=== PATIENT | female | born 1940 | race Caucasian/White ===

== ENCOUNTER 2019-09-07 13:19 | Emergency (ER) | payer OTHER ==
[2019-09-07 15:08] LABS: Absolute Lymphocytes (CBC) 1.9 K/uL (0.7-4.9); Basophils % 0.6 % (0-1.3); Hematocrit 42.3 % (36.0-45.0); Lymphocytes % 20.5 % (15.3-44.8); MPV 8.2 fL (7.6-11.3); RBC Red Blood Cell Count 4.46 M/uL (3.86-4.86)
[2019-09-07 15:09] LABS: Urine Blood NEGATIVE (NEG); Urine Glucose NEGATIVE (NEG); Urine Protein NEGATIVE (NEG)
[2019-09-07 15:17] LABS: Urine Bacteria <20 /HPF (<20); Urine Culture Reflex Order NOT NEEDED; Urine RBC NONE SEEN /HPF (NONE SEEN)
[2019-09-07 15:19] LABS: ALT/SGPT 23 U/L (12-78); AST/SGOT 16 U/L (15-37); Albumin 4.2 g/dL (3.4-5.0); Alkaline Phosphatase 99 U/L (45-117); BUN Blood Urea Nitrogen 7 mg/dL (7-18); Bicarbonate 32 mmol/L (21-32); Bilirubin Direct < 0.1 mg/dL (0-0.2); Bilirubin Total 0.2 mg/dL (0.2-1.0); Glucose Level 89 mg/dL (74-106); Lipase 182 U/L (73-393); Potassium 4.6 mmol/L (3.5-5.1); Protein, Total 7.9 g/dL (6.4-8.2); Sodium Level 136 mmol/L (136-145)
--- NOTE | 2019-09-07 17:12 | RAD REPORT ---
EXAM DESCRIPTION: CT - Abdomen Pelvis W Contrast - 09/07/2019 4:37 pm CLINICAL HISTORY: Abd pain;Constipation, history of neurogenic bladder with self catheterization COMPARISON: CT imaging January 2017 TECHNIQUE: Biphasic, helical CT imaging of the abdomen and pelvis was performed following 100 ml non -ionic IV contrast. No oral contrast given. All CT scans are performed using dose optimization technique as appropriate and may include automated exposure control or mA/KV adjustment according to patient size. FINDINGS: No acute lung base finding seen. No pericardial thickening or effusion. The liver, spleen, and pancreas show no suspicious findings. Gallbladder and biliary tree are also wi thout suspicious finding. Symmetric renal function is seen with no hydronephrosis or suspicious renal mass. No pyelonephritis o r acute parenchymal process. Urinary bladder is contracted. Uterus is absent. Ovaries are absent or a trophic. No ovarian or primary CARDER BLANKETS process identifiable. Phleboliths are present. No adrenal abnormal ities. Appendix is not clearly defined. No appendicitis finding seen. No active GI process suspected. No free air, free fluid or inflammatory stranding. No hernia, mass or bulky lymphadenopathy. Patie nt has prominent bilateral groin veins and prominent veins across the lower pelvic subcutaneous fatty tissues. No iliac or IVC thrombus changes identified. No suspicious bony findings. Bony degenerative changes are present. 50% L1 compression fracture has n ot change from 2017. IMPRESSION: Contrast enhanced CT abdomen and pelvis showing no significant or suspicious finding. No significant change comparison study. Nonacute findings detailed in the body of the report.
--- NOTE | 2019-09-07 17:44 | EDPHYS ---
Physician Documentation [facility] Name: Joleen Boyer Age: 78 yrs Sex: Female : 1940 Arrival Date: 09/07/2019 Time: 13:22 Bed 25 Private MD: LOAN Physician Yoel Walker HPI: 09/07 15:06 This 78 yrs old Female presents to ER via Ambulatory with complaints of pm1 Urinary Problem, Abdominal Problem. 15:06 The patient presents with abdominal distention that is diffuse. constipation. pm1 15:06 Onset: The symptoms/episode began/occurred neurogenic bladder for about 2 years and on pm1 and off constipation and bloating. Associated signs and symptoms: Pertinent positives: constipation, Pertinent negatives: nausea, vomiting, and diarrhea, chest pain, shortness of breath. The symptoms are described as vague. Modifying factors: The symptoms are alleviated by nothing, the symptoms are aggravated by nothing. The patient has experienced similar episodes in the past, chronically. The patient has not recently seen a physician, the patient's primary care provider is Dr. Bragg. Historical: - Allergies: 14:20 Cephalexin Monohydrate; sr5 14:20 Keflex; sr5 14:20 Nitrofurantoin; sr5 14:20 Nitrofurantoin Macrocrystal; sr5 14:20 PENICILLINS; sr5 14:20 Sulfa (Sulfonamide Antibiotics); sr5 14:20 Tetracycline; sr5 - Home Meds: 15:05 amitriptyline 25 mg Oral tab 1 tab once daily [Active]; aspirin 81 mg Oral chew 1 tab mg2 once daily [Active]; diazepam 5 mg Oral tab 1 tab 2 times per day [Active]; Dilantin 100 mg Oral 3 capsules 1 time per day [Active]; Dilantin 30 mg Oral cap [Active]; Ellura 200 mg Oral cap [Active]; Mapap (acetaminophen) 325 mg Oral tab 1 tab as needed [Active]; Miralax 17 gram/dose Oral powd once daily [Active]; PreserVision AREDS 14,320-226-200 [id number] Oral cap [Active]; Probiotic 250 billion mg Oral cap [Active]; ranitidine HCl 150 mg Oral cap 1 cap once daily [Active]; Stool Softener 240 mg Oral cap 1 cap once daily [Active]; Vitamin C 1,000 mg Oral tab [Active]; - PMHx: 14:20 COPD; Depression; Hypertension; sr5 - Immunization history:: Flu vaccine status is unknown. - Social history:: Smoking status: unknown. - Ebola Screening: : No symptoms or risks identified at this time. ROS: 15:06 Constitutional: Negative for fever, chills, and weight loss, Eyes: Negative for injury, pm1 pain, redness, and discharge, ENT: Negative for injury, pain, and discharge, Neck: Negative for injury, pain, and swelling, Cardiovascular: Negative for chest pain, palpitations, and edema, Respiratory: Negative for shortness of breath, cough, wheezing, and pleuritic chest pain. 15:06 Back: Negative for injury and pain, : Negative for injury, bleeding, discharge, and swelling, MS/Extremity: Negative for injury and deformity, Skin: Negative for injury, rash, and discoloration, Neuro: Negative for headache, weakness, numbness, tingling, and seizure. 15:06 Abdomen/GI: Positive for abdominal pain, constipation, Negative for nausea and vomiting, diarrhea. Exam: 15:06 Constitutional: This is a well developed, well nourished patient who is awake, alert, pm1 and in no acute distress. Head/Face: Normocephalic, atraumatic. Eyes: Pupils equal round and reactive to light, extra-ocular motions intact. Lids and lashes normal. Conjunctiva and sclera are non-icteric and not injected. Cornea within normal limits. Periorbital areas with no swelling, redness, or edema. ENT: Nares patent. No nasal discharge, no septal abnormalities noted. Tympanic membranes are normal and external auditory canals are clear. Oropharynx with no redness, swelling, or masses, exudates, or evidence of obstruction, uvula midline. Mucous membranes moist. Neck: Trachea midline, no thyromegaly or masses palpated, and no cervical lymphadenopathy. Supple, full range of motion without nuchal rigidity, or vertebral point tenderness. No Meningismus. Chest/axilla: Normal chest wall appearance and motion. Nontender with no deformity. No lesions are appreciated. Cardiovascular: Regular rate and rhythm with a normal S1 and S2. No gallops, murmurs, or rubs. Normal PMI, no JVD. No pulse deficits. Respiratory: Lungs have equal breath sounds bilaterally, clear to auscultation and percussion. No rales, rhonchi or wheezes noted. No increased work of breathing, no retractions or nasal flaring. Abdomen/GI: Soft, non-tender, with normal bowel sounds. No distension or tympany. No guarding or rebound. No evidence of tenderness throughout. Back: No spinal tenderness. No costovertebral tenderness. Full range of motion. Skin: Warm, dry with normal turgor. Normal color with no rashes, no lesions, and no evidence of cellulitis. MS/ Extremity: Pulses equal, no cyanosis. Neurovascular intact. Full, normal range of motion. 15:06 Neuro: Orientation: is normal, Motor: is normal, moves all fours. Vital Signs: 14:20 BP 119 / 67; Pulse 79; Resp 18; Temp 98.6; Pulse Ox 91% on R/A; Weight 66.68 kg (M); sr5 16:00 BP 125 / 78; Pulse 80; Resp 18; Temp 98; Pulse Ox 100% on R/A; mg2 17:30 BP 120 / 78; Pulse 81; Resp 18; Pulse Ox 100% on R/A; mg2 14:20 PMH=COPD sr5 MDM: 14:32 Patient medically screened. minerva 17:42 Data reviewed: vital signs. Counseling: I had a detailed discussion with the patient pm1 and/or guardian regarding: the historical points, exam findings, and any diagnostic results supporting the discharge/admit diagnosis, lab results, radiology results, the need for outpatient follow up, to return to the emergency department if symptoms worsen or persist or if there are any questions or concerns that arise at home. 09/07 14:40 Order name: Basic Metabolic Panel; Complete Time: 15:31 mg2 09/07 14:40 Order name: CBC with Diff; Complete Time: 15:17 mg2 09/07 14:40 Order name: Creatinine for Radiology; Complete Time: 15:18 mg2 09/07 14:40 Order name: Hepatic Function; Complete Time: 15:31 mg2 09/07 14:40 Order name: Lipase; Complete Time: 15: mg2 09/07 14:50 Order name: Urine Microscopic Only; Complete Time: 15:17 mg2 09/07 14:40 Order name: IV Saline Lock; Complete Time: 14:58 mg2 09/07 14:40 Order name: Labs collected and sent; Complete Time: 14:58 mg2 09/07 14:40 Order name: Urine Dipstick-Ancillary (obtain specimen); Complete Time: 14:50 mg2 09/07 14:51 Order name: Urine Dipstick--Ancillary (enter results); Complete Time: 15:17 eb 09/07 15:17 Order name: CT Abd/Pelvis - IV Contrast Only; Complete Time: 17:16 pm1 Administered Medications: No medications were administered Disposition: 19:48 Co-signature as Attending Physician, Yoel Walker MD I agree with the assessment and [facility] plan of care. Disposition: 09/07/19 17:43 Discharged to Home. Impression: Unspecified abdominal pain. - Condition is Stable. - Discharge Instructions: Abdominal Pain, Adult, High-Fiber Diet, Fiber Content in Foods. - Medication Reconciliation Form, Thank You Letter, Antibiotic Education, Prescription Opioid Use form. - Follow up: Emergency Department; When: As needed; Reason: Worsening of condition. Follow up: Private Physician; When: 2 - 3 days; Reason: Recheck today's complaints, Continuance of care, Re-evaluation by your physician. - Problem is new. - Symptoms have improved. Signatures: Dispatcher [employer] EDSD Yoel Walker MD MD cha Marinas, Patrick, TIE MAKER TIE MAKER pm1 Anthony Morales RN RN sr5 Oneil Canchola RN RN mg2 Corrections: (The following items were deleted from the chart) 18:05 17:43 09/07/2019 17:43 Discharged to Home. Impression: Unspecified abdominal pain. mg2 Condition is Stable. Forms are Medication Reconciliation Form, Thank You Letter, Antibiotic Education, Prescription Opioid Use. Follow up: Emergency Department; When: As needed; Reason: Worsening of condition. Follow up: Private Physician; When: 2 - 3 days; Reason: Recheck today's complaints, Continuance of care, Re-evaluation by your physician. Problem is new. Symptoms have improved. pm1
--- NOTE | 2019-09-07 17:44 | ER ---
Nurse's Notes [facility] Name: Joleen Boyer Age: 78 yrs Sex: Female : 1940 Arrival Date: 09/07/2019 Time: 13:22 Bed 25 Private MD: Diagnosis: Unspecified abdominal pain Presentation: 09/07 14:18 Presenting complaint: Patient states: abd distention, very vague symptoms report. sr5 History of neurogenic bladder, requiring self catherization, denies foul odor to urine. Reports drinking prune juice with BM today. 14:18 Acuity: YORDY 3 sr5 15:02 Transition of care: patient was not received from another setting of care. Onset of mg2 symptoms was August 2019. Risk Assessment: Do you want to hurt yourself or someone else? Patient reports no desire to harm self or others. Initial Sepsis Screen: Does the patient meet any 2 criteria? No. Patient's initial sepsis screen is negative. Does the patient have a suspected source of infection? No. Patient's initial sepsis screen is negative. Care prior to arrival: None. 15:02 Method Of Arrival: Ambulatory mg2 Triage Assessment: 14:20 General: Appears in no apparent distress. Behavior is calm, cooperative. Pain: sr5 Complains of pain in abdomen. Neuro: No deficits noted. Cardiovascular: No deficits noted. GI: Reports lower abdominal pain, upper abdominal pain, constipation. Historical: - Allergies: 14:20 Cephalexin Monohydrate; sr5 14:20 Keflex; sr5 14:20 Nitrofurantoin; sr5 14:20 Nitrofurantoin Macrocrystal; sr5 14:20 PENICILLINS; sr5 14:20 Sulfa (Sulfonamide Antibiotics); sr5 14:20 Tetracycline; sr5 - Home Meds: 15:05 amitriptyline 25 mg Oral tab 1 tab once daily [Active]; aspirin 81 mg Oral chew 1 tab mg2 once daily [Active]; diazepam 5 mg Oral tab 1 tab 2 times per day [Active]; Dilantin 100 mg Oral 3 capsules 1 time per day [Active]; Dilantin 30 mg Oral cap [Active]; Ellura 200 mg Oral cap [Active]; Mapap (acetaminophen) 325 mg Oral tab 1 tab as needed [Active]; Miralax 17 gram/dose Oral powd once daily [Active]; PreserVision AREDS 14,320-226-200 [id number] Oral cap [Active]; Probiotic 250 billion mg Oral cap [Active]; ranitidine HCl 150 mg Oral cap 1 cap once daily [Active]; Stool Softener 240 mg Oral cap 1 cap once daily [Active]; Vitamin C 1,000 mg Oral tab [Active]; - PMHx: 14:20 COPD; Depression; Hypertension; sr5 - Immunization history:: Flu vaccine status is unknown. - Social history:: Smoking status: unknown. - Ebola Screening: : No symptoms or risks identified at this time. Screenin:01 Abuse screen: Denies threats or abuse. Denies injuries from another. Nutritional mg2 screening: No deficits noted. Tuberculosis screening: No symptoms or risk factors identified. Fall Risk IV access (20 points). Assessment: 14:59 General: Appears in no apparent distress. comfortable, Behavior is calm, cooperative. mg2 Pain: Complains of pain in abdomen Pain does not radiate. Pain currently is 3 out of 10 on a pain scale. Quality of pain is described as aching, Pain began gradually. Neuro: Level of Consciousness is awake, alert, obeys commands, Oriented to person, place, time, situation. Cardiovascular: Capillary refill < 3 seconds Patient's skin is warm and dry. Respiratory: Airway is patent Respiratory effort is even, unlabored, Respiratory pattern is regular, symmetrical. GI: Bowel sounds present X 4 quads. Abd is soft. GI: Reports constipation. : Urine is clear. EENT: No signs and/or symptoms were reported regarding the EENT system. Derm: Skin is intact, is healthy with good turgor, Skin is pink, warm \T\ dry. normal. Musculoskeletal: Circulation, motion, and sensation intact. Capillary refill < 3 seconds. 16:41 Reassessment: patient do self-catheterization. patient sent to ct scan via wheelchair. mg2 Vital Signs: 14:20 BP 119 / 67; Pulse 79; Resp 18; Temp 98.6; Pulse Ox 91% on R/A; Weight 66.68 kg (M); sr5 16:00 BP 125 / 78; Pulse 80; Resp 18; Temp 98; Pulse Ox 100% on R/A; mg2 17:30 BP 120 / 78; Pulse 81; Resp 18; Pulse Ox 100% on R/A; mg2 14:20 PMH=COPD sr5 ED Course: 13:22 Patient arrived in ED. as 14:19 Triage completed. sr5 14:28 Oneil Canchola, RN is Primary Nurse. mg2 14:29 Markie Abernathy NP is PHCP. pm1 14:29 Yoel Walker MD is Attending Physician. pm1 14:37 Arm band placed on. mg2 15:01 Patient has correct armband on for positive identification. mg2 15:01 No provider procedures requiring assistance completed. Inserted saline lock: 20 gauge mg2 in left antecubital area, using aseptic technique. Blood collected. 16:35 CT completed. Patient tolerated procedure well. Patient moved to CT via wheelchair. nj Patient moved back from CT. 16:38 CT Abd/Pelvis - IV Contrast Only In Process Unspecified. EDMS 18:05 IV discontinued, intact, bleeding controlled, No redness/swelling at site. Pressure mg2 dressing applied. Administered Medications: No medications were administered Output: 15:21 Urine: 150ml (Straight Cath); Total: 150ml. mg2 Outcome: 17:43 Discharge ordered by . pm1 18:05 Discharged to home ambulatory, with friend. mg2 18:05 Condition: stable 18:05 Discharge instructions given to patient, family, Instructed on discharge instructions, follow up and referral plans. Demonstrated understanding of instructions, follow-up care. 18:05 Patient left the ED. mg2 Signatures: Dispatcher [employer] Sanjana Michaud Patrick, [place] ASSISTANT PRODUCT MANAGER pm1 Anthony Morales RN RN sr5 Robinson Winters Michele, RN RN mg2
[2019-09-07 18:15] VITALS: TEMP 98; O2SAT 100
[2019-09-07 18:16] VITALS: BP 120/78
== END 2019-09-07 18:05 | disposition home or self-care (01) ==
LOC: ER 13:19
DX: R10.9 Unspecified abdominal pain (principal); I10 Essential (primary) hypertension; F32.9 Major depressive disorder, single episode, unspecified; J44.9 Chronic obstructive pulmonary disease, unspecified; Z79.82 Long term (current) use of aspirin; Z88.0 Allergy status to penicillin; Z88.1 Allergy status to other antibiotic agents; Z88.2 Allergy status to sulfonamides; Z88.3 Allergy status to other anti-infective agents; Z88.8 Allergy status to other drugs, medicaments and biological substances
CPT/HCPCS: 85025; 80048; 36415; 80076; 83690; 74177; 99284; Q9967; 81003; 81015

== ENCOUNTER 2020-05-10 18:26 | Emergency (ER) | payer OTHER ==
[2020-05-10 19:07] LABS: Urine Blood 1+ (NEG); Urine Glucose NEGATIVE (NEG); Urine Specific Gravity 1.015 (1.005-1.030)
[2020-05-10 19:08] LABS: Urine Protein 1+ (NEG); Urine pH 6.5 (5.0-7.0)
[2020-05-10 19:33] LABS: Urine Amorphous Sediment 1+ /HPF (NONE SEEN); Urine Bacteria <20 /HPF (<20); Urine Culture Reflex Order NOT NEEDED; Urine RBC <5 /HPF (NONE SEEN)
--- NOTE | 2020-05-10 19:40 | ER ---
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 Just wanted to be checked before she cath's herself again. EMS states: [facility] client. Coronavirus screen: Client denies travel out of the [place] in the last 14 days. At this time, the client does not indicate any symptoms associated with coronavirus-19. Ebola Screen: Patient denies travel to an Ebola-affected area in the 21 days before illness onset. Initial Sepsis Screen: Does the patient meet any 2 criteria? No. Patient's initial sepsis screen is negative. Risk Assessment: Do you want to hurt yourself or someone else? Patient reports no desire to harm self or others. Onset of symptoms was May 10, 2020. 18:30 Method Of Arrival: EMS: [facility] ll1 18:30 Acuity: YORDY 4 ll1 18:32 Initial Sepsis Screen: Does the patient have a suspected source of infection? No. hb Patient's initial sepsis screen is negative. Historical: - Allergies: 18:33 Cephalexin Monohydrate; ll1 18:33 Keflex; ll1 18:33 Nitrofurantoin; ll1 18:33 Nitrofurantoin Macrocrystal; ll1 18:33 PENICILLINS; ll1 18:33 Sulfa (Sulfonamide Antibiotics); ll1 18:33 Tetracycline; ll1 - PMHx: 18:33 COPD; Depression; Hypertension; stroke; macular degeneration; ll1 - Immunization history:: Flu vaccine is up to date. - Social history:: Smoking status: Patient/guardian denies using tobacco, the patient reports quitting approximately 11 years ago, Patient/guardian denies using alcohol, street drugs. Screenin:46 Abuse screen: Denies threats or abuse. Denies injuries from another. Nutritional hb screening: No deficits noted. Tuberculosis screening: No symptoms or risk factors identified. Fall Risk None identified. Assessment: 18:46 General: Appears in no apparent distress. Behavior is calm, cooperative. Pain: Denies hb pain. Neuro: Level of Consciousness is awake, alert, obeys commands, Oriented to person, place, time, situation. Cardiovascular: Capillary refill < 3 seconds Patient's skin is warm and dry. Respiratory: Airway is patent Respiratory effort is even, unlabored, Respiratory pattern is regular, symmetrical. GI: No signs and/or symptoms were reported involving the gastrointestinal system. : Reports decreased urine amount with self cath this afternoon. EENT: No signs and/or symptoms were reported regarding the EENT system. Derm: Skin is pink, warm \\T\\ dry. Musculoskeletal: No signs and/or symptoms reported regarding the musculoskeletal system. 19:10 Reassessment: Patient appears in no apparent distress at this time. Patient and/or jb4 family updated on plan of care and expected duration. Pain level reassessed. Patient is alert, oriented x 3, equal unlabored respirations, skin warm/dry/pink. 19:52 Reassessment: CALLED [facility]. SPOKE WITH SAVANNAH THORPE. SHE WILL CONTACTING PATIENTS mt2 RIDE. Vital Signs: 18:30 BP 149 / 83; Pulse 84; Resp 18; Temp 98.6; Pulse Ox 93% ; Pain 0/10; ll1 19:30 BP 151 / 83; Pulse 79; Resp 16; Pulse Ox 95% on R/A; jb4 ED Course: 18:29 Patient arrived in ED. ll1 18:32 Triage completed. ll1 18:34 Arm band placed on Patient placed in an exam room, on a stretcher. ll1 18:35 Linnea Chahal FNP-C is PHCP. kb 18:35 Zena Garg MD is Attending Physician. kb 18:46 Patient has correct armband on for positive identification. Bed in low position. Call hb light in reach. Side rails up X 1. 18:53 Speci-cath kit inserted, using sterile technique, specimen obtained. 8F returned 100 hb ml. Patient tolerated well. 19:42 Jon Brennan, JON is Primary Nurse. jb4 19:45 Speci-cath kit inserted, using sterile technique, 12 Fr., returned 700. Patient mt2 tolerated. 20:17 No provider procedures requiring assistance completed. Patient did not have IV access mt2 during this emergency room visit. Administered Medications: No medications were administered Intake: 18:53 PO: 0ml; Total: 0ml. hb Output: 18:53 Urine: 100ml (Straight Cath); Total: 100ml. hb Outcome: 19:39 Discharge ordered by . bushra 20:17 Discharged to home ambulatory. mt2 20:17 Condition: good 20:17 Discharge instructions given to patient, Instructed on discharge instructions, follow up and referral plans. Demonstrated understanding of instructions, follow-up care. 20:18 Patient left the ED. 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 Just wanted to be checked before she cath's herself again. ll1
--- NOTE | 2020-05-10 19:40 | EDPHYS ---
Physician Documentation [facility] Name: Joleen Boyer Age: 79 yrs Sex: Female : 1940 Arrival Date: 05/10/2020 Time: 18:29 Bed 8 Private MD: ED Physician Zena Garg HPI: 05/10 20:18 This 79 yrs old Female presents to ER via EMS with complaints of Urinary kb Problem. 20:18 Pt reports she had some trouble doing the in and out catheter prior to arrival. States kb she has been self catheterizing for years and sometimes she has trouble doing it. She asked staff at [facility] to help her and they said she had to come to the ER for help. Pt states "I just need to drain my bladder.". Onset: The symptoms/episode began/occurred today. Severity of symptoms: At their worst the symptoms were mild in the emergency department the symptoms are unchanged. The patient has not experienced similar symptoms in the past. The patient has not recently seen a physician. Historical: - Allergies: 18:33 Cephalexin Monohydrate; ll1 18:33 Keflex; ll1 18:33 Nitrofurantoin; ll1 18:33 Nitrofurantoin Macrocrystal; ll1 18:33 PENICILLINS; ll1 18:33 Sulfa (Sulfonamide Antibiotics); ll1 18:33 Tetracycline; ll1 - PMHx: 18:33 COPD; Depression; Hypertension; stroke; macular degeneration; ll1 - Immunization history:: Flu vaccine is up to date. - Social history:: Smoking status: Patient/guardian denies using tobacco, the patient reports quitting approximately 11 years ago, Patient/guardian denies using alcohol, street drugs. ROS: 20:17 Constitutional: Negative for fever, chills, and weight loss, Cardiovascular: Negative kb for chest pain, palpitations, and edema, Respiratory: Negative for shortness of breath, cough, wheezing, and pleuritic chest pain, Abdomen/GI: Negative for abdominal pain, nausea, vomiting, diarrhea, and constipation, Back: Negative for injury and pain, : Negative for injury, bleeding, discharge, and swelling, MS/Extremity: Negative for injury and deformity, Skin: Negative for injury, rash, and discoloration, Neuro: Negative for headache, weakness, numbness, tingling, and seizure. Exam: 20:17 Constitutional: This is a well developed, well nourished patient who is awake, alert, kb and in no acute distress. Head/Face: Normocephalic, atraumatic. Chest/axilla: Normal chest wall appearance and motion. Nontender with no deformity. No lesions are appreciated. Cardiovascular: Regular rate and rhythm with a normal S1 and S2. No gallops, murmurs, or rubs. Normal PMI, no JVD. No pulse deficits. Respiratory: Lungs have equal breath sounds bilaterally, clear to auscultation and percussion. No rales, rhonchi or wheezes noted. No increased work of breathing, no retractions or nasal flaring. Abdomen/GI: Soft, non-tender, with normal bowel sounds. No distension or tympany. No guarding or rebound. No evidence of tenderness throughout. Back: No spinal tenderness. No costovertebral tenderness. Full range of motion. Female : Normal external genitalia. Skin: Warm, dry with normal turgor. Normal color with no rashes, no lesions, and no evidence of cellulitis. MS/ Extremity: Pulses equal, no cyanosis. Neurovascular intact. Full, normal range of motion. Neuro: Awake and alert, GCS 15, oriented to person, place, time, and situation. Cranial nerves II-XII grossly intact. Motor strength 5/5 in all extremities. Sensory grossly intact. Cerebellar exam normal. Normal gait. Vital Signs: 18:30 BP 149 / 83; Pulse 84; Resp 18; Temp 98.6; Pulse Ox 93% ; Pain 0/10; ll1 19:30 BP 151 / 83; Pulse 79; Resp 16; Pulse Ox 95% on R/A; jb4 MDM: 18:35 Patient medically screened. kb 20:17 Data reviewed: vital signs, nurses notes. Data interpreted: Pulse oximetry: on room air kb is 95 %. Interpretation: normal. Counseling: I had a detailed discussion with the patient and/or guardian regarding: the historical points, exam findings, and any diagnostic results supporting the discharge/admit diagnosis, lab results, the need for outpatient follow up, a family practitioner, to return to the emergency department if symptoms worsen or persist or if there are any questions or concerns that arise at home. 05/10 18:53 Order name: Urine Microscopic Only kb 08/30 18:54 Order name: Urine Microscopic Only; Complete Time: 19:38 EDMS 05/10 18:36 Order name: Straight Cath - Urine; Complete Time: 18:53 kb 05/10 18:36 Order name: Urine Dipstick-Ancillary (obtain specimen); Complete Time: 18:53 kb 05/10 18:56 Order name: Urine Dipstick--Ancillary (enter results); Complete Time: 19:09 eb Administered Medications: No medications were administered Disposition: 05/10/20 19:39 Discharged to Home. Impression: Encounter for straight catheterization. - Condition is Stable. - Discharge Instructions: Clean Intermittent Catheterization, Female. - Medication Reconciliation Form, Thank You Letter, Antibiotic Education, Prescription Opioid Use form. - Follow up: Emergency Department; When: As needed; Reason: Worsening of condition. Follow up: Private Physician; When: 2 - 3 days; Reason: Recheck today's complaints, Continuance of care, Re-evaluation by your physician. Signatures: Dispatcher [employer] EDLinnea Gonzales, CAN CLOSING MACHINE OPERATOR-C CAN CLOSING MACHINE OPERATOR-Silas Salas, RN RN ll1 Soumya Robles RN RN mt2 Corrections: (The following items were deleted from the chart) 20:18 19:39 05/10/2020 19:39 Discharged to Home. Impression: Encounter for straight mt2 catheterization. Condition is Stable. Forms are Medication Reconciliation Form, Thank You Letter, Antibiotic Education, Prescription Opioid Use. Follow up: Emergency Department; When: As needed; Reason: Worsening of condition. Follow up: Private Physician; When: 2 - 3 days; Reason: Recheck today's complaints, Continuance of care, Re-evaluation by your physician. kb
[2020-05-13 21:17] VITALS: TEMP 98.6
[2020-05-13 21:18] VITALS: BP 151/83; O2SAT 95
== END 2020-05-10 20:18 | disposition home or self-care (01) ==
LOC: ER 18:26
DX: Z46.6 Encounter for fitting and adjustment of urinary device (principal)
CPT/HCPCS: 81003; 81015; 99283

== ENCOUNTER 2020-06-17 08:45 | Emergency (ER) | payer OTHER ==
--- NOTE | 2020-06-17 09:40 | RAD REPORT ---
EXAM DESCRIPTION: [place] Single View06/17/2020 9:32 am CLINICAL HISTORY: Hypertension/weakness COMPARISON: 2017 FINDINGS: Lungs are moderately hyperaerated The lungs appear clear of acute infiltrate. The heart is normal size IMPRESSION: COPD without visualization of an acute abnormality
--- NOTE | 2020-06-17 10:22 | ER ---
Nurse's Notes [facility] Name: Joleen Boyer Age: 79 yrs Sex: Female : 1940 Arrival Date: 06/17/2020 Time: 08:47 Bed 18 Private MD: Diagnosis: Malaise and fatigue;Person with feared health complaint in whom no diagnosis is made Presentation: 06/17 08:49 Chief complaint: EMS states: pt is resident at [facility] assisted living, pt has iw been c/o dizziness, not feeling well, behavior has been abnormal, more obsessive and paranoid. Coronavirus screen: At this time, the client does not indicate any symptoms associated with coronavirus-19. Ebola Screen: Patient negative for fever greater than or equal to 101.5 degrees Fahrenheit, and additional compatible Ebola Virus Disease symptoms Patient denies exposure to infectious person. Patient denies travel to an Ebola-affected area in the 21 days before illness onset. No symptoms or risks identified at this time. Initial Sepsis Screen: Does the patient meet any 2 criteria? No. Patient's initial sepsis screen is negative. Does the patient have a suspected source of infection? No. Patient's initial sepsis screen is negative. Risk Assessment: Do you want to hurt yourself or someone else? Patient reports no desire to harm self or others. 08:49 Method Of Arrival: EMS: [facility] iw 08:49 Acuity: YORDY 3 iw Historical: - Allergies: 08:56 Cephalexin Monohydrate; iw 08:56 Keflex; iw 08:56 Nitrofurantoin; iw 08:56 PENICILLINS; iw 08:56 Sulfa (Sulfonamide Antibiotics); iw 08:56 Tetracycline; iw - Home Meds: 08:56 diazepam 5 mg Oral tab 1 tab 3 times per day [Active]; Dilantin 30 mg Oral cap nightly iw [Active]; terbinafine HCl 250 mg oral tab 1 tab once daily [Active]; - PMHx: 08:56 COPD; Depression; Hypertension; macular degeneration; stroke; iw - Immunization history:: Adult Immunizations unknown. - Family history:: not pertinent. - Social history:: Smoking status: Patient denies any tobacco usage or history of. - Hospitalizations: : No recent hospitalization is reported. Screenin:00 Abuse screen: Denies threats or abuse. Denies injuries from another. Nutritional jl7 screening: No deficits noted. Tuberculosis screening: No symptoms or risk factors identified. Assessment: 09:00 General: Appears in no apparent distress. uncomfortable, Behavior is cooperative, jl7 anxious. Pain: Denies pain. Neuro: Level of Consciousness is awake, alert, obeys commands, Oriented to person, place, time, situation. Cardiovascular: Patient's skin is warm and dry. Respiratory: Airway is patent Respiratory effort is even, unlabored, Respiratory pattern is regular, symmetrical. GI: Reports diarrhea. : Reports self caths. Derm: Skin is pink, warm \\T\\ dry. 09:22 Reassessment: Pt refusing EKG and blood work at this time. ERD notified. jl7 10:06 Reassessment: Pt states "I'm ready to go." ERD notified. jl7 10:07 Reassessment: ERD at bedside. jl7 Vital Signs: 08:49 BP 138 / 73; Pulse 73; Resp 16; Temp 97.5; Pulse Ox 96% on R/A; iw 10:06 Pulse 72; Resp 15; Pulse Ox 97% ; Pain 0/10; jl7 ED Course: 08:47 Patient arrived in ED. iw 08:48 Janusz Lara MD is Attending Physician. rn 08:51 Triage completed. iw 08:55 Arm band placed on. iw 09:00 Patient has correct armband on for positive identification. Placed in gown. Bed in low jl7 position. Call light in reach. Side rails up X2. Pulse ox on. NIBP on. Warm blanket given. 09:07 Anh Shell RN is Primary Nurse. jl7 09:32 XRAY Chest (1 view) In Process Unspecified. EDMS 09:42 Urine collected: straight cath specimen, clear. Straight cath inserted, using sterile jl7 technique, 16 Fr. Specimen obtained. Returned clear yellow urine. Patient tolerated well. Straight cath completed by Nurse Licensed Practical JON Holcomb with students. 10:06 No provider procedures requiring assistance completed. Patient did not have IV access jl7 during this emergency room visit. Administered Medications: No medications were administered Outcome: 10:21 Discharge ordered by . rn 10:36 Discharged to home ambulatory. jl7 10:36 Condition: stable 10:36 Discharge instructions given to patient, Instructed on discharge instructions, follow up and referral plans. Demonstrated understanding of instructions, follow-up care. 10:37 Patient left the ED. jl7 Signatures: Dispatcher [employer] Maxine Osborn, Janusz Young RN, MD MD rn Leal, Jahala, RN RN jl7
--- NOTE | 2020-06-17 10:22 | EDPHYS ---
Physician Documentation [facility] Name: Joleen Boyer Age: 79 yrs Sex: Female : 1940 Arrival Date: 06/17/2020 Time: 08:47 Bed 18 Private MD: ED Physician Janusz Lara HPI: 06/17 08:59 This 79 yrs old Female presents to ER via EMS with complaints of "feels bad". rn 08:59 Reports feeling bad for last 2-3 weeks, feels like life is ending, + fatigue and rn decreased energy. no fever/cough/sob/abd pain, denies blood in stool. Did have loose stool today. No head injury. . Onset: The symptoms/episode began/occurred 3 week(s) ago. Severity of symptoms: At their worst the symptoms were mild in the emergency department the symptoms are unchanged. The patient has not experienced similar symptoms in the past. The patient has not recently seen a physician. Historical: - Allergies: 08:56 Cephalexin Monohydrate; iw 08:56 Keflex; iw 08:56 Nitrofurantoin; iw 08:56 PENICILLINS; iw 08:56 Sulfa (Sulfonamide Antibiotics); iw 08:56 Tetracycline; iw - Home Meds: 08:56 diazepam 5 mg Oral tab 1 tab 3 times per day [Active]; Dilantin 30 mg Oral cap nightly iw [Active]; terbinafine HCl 250 mg oral tab 1 tab once daily [Active]; - PMHx: 08:56 COPD; Depression; Hypertension; macular degeneration; stroke; iw - Immunization history:: Adult Immunizations unknown. - Family history:: not pertinent. - Social history:: Smoking status: Patient denies any tobacco usage or history of. - Hospitalizations: : No recent hospitalization is reported. ROS: 08:59 Constitutional: Negative for fever, chills, and weight loss, Eyes: Negative for injury, rn pain, redness, and discharge, Neck: Negative for injury, pain, and swelling, Cardiovascular: Negative for chest pain, palpitations, and edema, Respiratory: Negative for shortness of breath, cough, wheezing, and pleuritic chest pain, Abdomen/GI: Negative for abdominal pain, nausea, vomiting, and constipation, Back: Negative for injury and pain, MS/Extremity: Negative for injury and deformity, Skin: Negative for injury, rash, and discoloration, Neuro: Negative for headache, numbness, tingling, and seizure. Exam: 08:59 Constitutional: This is a well developed, well nourished patient who is awake, alert, rn and in no acute distress. Head/Face: Normocephalic, atraumatic. ENT: dry MM Cardiovascular: Regular rate and rhythm. No pulse deficits. Respiratory: No increased work of breathing, no retractions or nasal flaring. Abdomen/GI: soft, non-tender Skin: Warm, dry MS/ Extremity: Pulses equal, no cyanosis. Neurovascular intact. Full, normal range of motion. Equal circumference. Neuro: Awake and alert, GCS 15, oriented to person, place, time, and situation. Cranial nerves II-XII grossly intact. Motor strength 5/5 in all extremities. Sensory grossly intact. Cerebellar exam normal. Vital Signs: 08:49 BP 138 / 73; Pulse 73; Resp 16; Temp 97.5; Pulse Ox 96% on R/A; iw 10:06 Pulse 72; Resp 15; Pulse Ox 97% ; Pain 0/10; jl7 MDM: 08:48 Patient medically screened. rn 10:13 Differential Diagnosis Pt refuses bloodwork and ecg. She feels like just panicked. rn Reports had bloodwork done and everything looked ok recently. CXR neg, UA neg. Wants to go home. Recommend oral hydration and return precautions. . 10:15 Data reviewed: vital signs, nurses notes, radiologic studies, plain films, and as a rn result, I will discharge patient. Counseling: I had a detailed discussion with the patient and/or guardian regarding: the historical points, exam findings, and any diagnostic results supporting the discharge/admit diagnosis, radiology results, the need for outpatient follow up, to return to the emergency department if symptoms worsen or persist or if there are any questions or concerns that arise at home. Special discussion: I discussed with the patient/guardian in detail that at this point there is no indication for admission to the hospital. It is understood, however, that if the symptoms persist or worsen the patient needs to return immediately for re-evaluation. 06/17 08:50 Order name: Urine Microscopic Only rn 06/17 08:50 Order name: XRAY Chest (1 view); Complete Time: 10:00 rn 06/17 10:02 Order name: Urine Dipstick--Ancillary (enter results) bd 06/17 08:50 Order name: Urine Dipstick-Ancillary (obtain specimen); Complete Time: 09:42 rn 06/17 08:50 Order name: EKG; Complete Time: 08:51 rn Administered Medications: No medications were administered Disposition: 06/17/20 10:21 Discharged to Home. Impression: Malaise and fatigue, Person with feared health complaint in whom no diagnosis is made. - Condition is Stable. - Medication Reconciliation Form, Thank You Letter, Antibiotic Education, Prescription Opioid Use form. - Follow up: Private Physician; When: As needed; Reason: Recheck today's complaints, Re-evaluation by your physician. - Problem is new. - Symptoms have improved. Signatures: Dispatcher [employer] EDMS Maxine Vergara, RN Janusz Young MD MD rn Leal, Jahala, RN RN jl7 Corrections: (The following items were deleted from the chart) 09: 08:59 Constitutional: Negative for fever, chills, and weight loss, Eyes: Negative for rn injury, pain, redness, and discharge, Neck: Negative for injury, pain, and swelling, Cardiovascular: Negative for chest pain, palpitations, and edema, Respiratory: Negative for shortness of breath, cough, wheezing, and pleuritic chest pain, Abdomen/GI: Negative for abdominal pain, nausea, vomiting, diarrhea, and constipation, Back: Negative for injury and pain, MS/Extremity: Negative for injury and deformity, Skin: Negative for injury, rash, and discoloration, Neuro: Negative for headache, numbness, tingling, and seizure, rn 09:42 08:50 IV Saline Lock ordered. rn pia7 09:42 08:50 EKG - Nurse/Tech ordered. kristel [email or web address] 10:21 10:21 06/17/2020 10:21 Discharged to Home. Impression: Malaise and fatigue. Condition rn is Stable. Forms are Medication Reconciliation Form, Thank You Letter, Antibiotic Education, Prescription Opioid Use. Follow up: Private Physician; When: As needed; Reason: Recheck today's complaints, Re-evaluation by your physician. Problem is new. Symptoms have improved. rn 10:37 10:21 06/17/2020 10:21 Discharged to Home. Impression: Malaise and fatigue; Person with jl7 feared health complaint in whom no diagnosis is made. Condition is Stable. Forms are Medication Reconciliation Form, Thank You Letter, Antibiotic Education, Prescription Opioid Use. Follow up: Private Physician; When: As needed; Reason: Recheck today's complaints, Re-evaluation by your physician. Problem is new. Symptoms have improved. rn
[2020-06-17 10:40] LABS: Urine Blood TRACE (NEG); Urine Glucose NEGATIVE (NEG); Urine Protein 1+ (NEG); Urine Specific Gravity 1.025 (1.005-1.030); Urine pH 6.5 (5.0-7.0)
[2020-06-17 10:49] VITALS: BP 138/73; TEMP 97.5
[2020-06-17 10:51] VITALS: O2SAT 97
[2020-06-17 11:18] LABS: Urine Bacteria <20 /HPF (<20); Urine Culture Reflex Order NOT NEEDED; Urine RBC <5 /HPF (NONE SEEN)
== END 2020-06-17 10:37 | disposition home or self-care (01) ==
LOC: ER 08:45
DX: Z71.1 Person with feared health complaint in whom no diagnosis is made (principal); R53.81 Other malaise; I10 Essential (primary) hypertension; F32.9 Major depressive disorder, single episode, unspecified; J44.9 Chronic obstructive pulmonary disease, unspecified; Z86.73 Personal history of transient ischemic attack (TIA), and cerebral infarction without residual deficits; Z88.0 Allergy status to penicillin; Z88.1 Allergy status to other antibiotic agents; Z88.2 Allergy status to sulfonamides; Z88.8 Allergy status to other drugs, medicaments and biological substances
CPT/HCPCS: 51702; 71045; 81003; 81015; 93005; 99284

== ENCOUNTER 2020-06-28 13:12 | Emergency (ER) | payer OTHER ==
--- NOTE | 2020-06-28 14:13 | RAD REPORT ---
EXAM DESCRIPTION: RAD - Hand Left 3 View - 06/28/2020 2:03 pm CLINICAL HISTORY: fall, pain Trauma, pain COMPARISON: No comparisons FINDINGS: Mildly displaced fractures seen at the base of the second, third and fourth metacarpals. F ractures also seen involving the base of the proximal phalanx of the thumb.
--- NOTE | 2020-06-28 14:14 | RAD REPORT ---
EXAM DESCRIPTION: RAD - Wrist Left 3 View - 06/28/2020 2:03 pm CLINICAL HISTORY: PAIN Pain COMPARISON: Wrist Left 3 View dated 10/08/2016 FINDINGS: Fractures involving the base of the second, third and probably fourth metacarpals noted. Small fracture seen at the base of the proximal phalanx of the thumb. Old trauma of the distal radiu s is seen. No acute wrist fracture.
--- NOTE | 2020-06-28 14:19 | ER ---
Nurse's Notes [facility] Name: Joleen Boyer Age: 79 yrs Sex: Female : 1940 Arrival Date: 06/28/2020 Time: 13:13 Bed 2 Private MD: Diagnosis: Nondisplaced fracture of base of fourth metacarpal bone, left hand;Nondisplaced fracture of base of second metacarpal bone. left hand;Nondisplaced fracture of base of third metacarpal bone, left hand;Nondisplaced fracture of proximal phalanx of left thumb Presentation: 06/28 13:15 Chief complaint: EMS states: "She fell while walking and landed on her left hand. she jd3 is reporting left wrist and hand pain as well as an abrasion on her left leg.". Coronavirus screen: At this time, the client does not indicate any symptoms associated with coronavirus-19. Ebola Screen: Patient negative for fever greater than or equal to 101.5 degrees Fahrenheit, and additional compatible Ebola Virus Disease symptoms. Initial Sepsis Screen: Does the patient meet any 2 criteria? No. Patient's initial sepsis screen is negative. Does the patient have a suspected source of infection? No. Patient's initial sepsis screen is negative. Risk Assessment: Do you want to hurt yourself or someone else? Patient reports no desire to harm self or others. Onset of symptoms was June 28, 2020. Transition of care: patient was received from another setting of care (long-term care facility), [facility]. 13:15 Acuity: YORDY 4 jd3 13:15 Method Of Arrival: EMS: [facility] jd3 Historical: - Allergies: 13:14 Cephalexin Monohydrate; iw 13:14 Keflex; iw 13:14 Nitrofurantoin; iw 13:14 PENICILLINS; iw 13:14 Sulfa (Sulfonamide Antibiotics); iw 13:14 Tetracycline; iw - Home Meds: 13:14 diazepam 5 mg Oral tab 1 tab 3 times per day [Active]; Dilantin 30 mg Oral cap nightly iw [Active]; terbinafine HCl 250 mg Oral tab 1 tab once daily [Active]; - PMHx: 13:14 COPD; Depression; Hypertension; macular degeneration; stroke; iw - Immunization history:: Adult Immunizations up to date. - Family history:: not pertinent. - Social history:: Smoking status: . - Hospitalizations: : No recent hospitalization is reported. Screenin:23 Abuse screen: Denies threats or abuse. Denies injuries from another. Nutritional iw screening: No deficits noted. Tuberculosis screening: No symptoms or risk factors identified. Fall Risk Fall in past 12 months (25 points). Assessment: 13:22 General: Appears in no apparent distress. Behavior is calm, cooperative. Pain: iw Complains of pain in left hand. Neuro: Level of Consciousness is awake, alert, obeys commands, Oriented to person, place, time, situation, Moves all extremities. Full function. Cardiovascular: Patient's skin is warm and dry. Respiratory: Respiratory effort is even, unlabored, Respiratory pattern is regular, symmetrical. GI: No signs and/or symptoms were reported involving the gastrointestinal system. Derm: Skin is fragile, is thin, Skin is normal. Musculoskeletal: Range of motion: limited in left wrist, MCP of left thumb and CMC of left thumb. 14:20 Reassessment: Patient appears in no apparent distress at this time. pt requested to be iw straight cathed prior to splint placement. Vital Signs: 13:17 BP 142 / 95; Pulse 71; Resp 18 S; Temp 99.4(TE); Pulse Ox 94% on R/A; Weight 77.11 kg jd3 (R); Height 5 ft. 7 in. (170.18 cm) (R); Pain 8/10; 13:17 Body Mass Index 26.63 (77.11 kg, 170.18 cm) jd3 ED Course: 13:13 Patient arrived in ED. iw 13:17 Janusz Lara MD is Attending Physician. rn 13:17 Triage completed. jd3 13:18 Arm band placed on. jd3 13:22 Maxine Vergara, JON is Primary Nurse. iw 13:40 Patient has correct armband on for positive identification. iw 14:03 XRAY Wrist LEFT 3 view In Process Unspecified. EDMS 14:03 XRAY Hand LEFT 3 View In Process Unspecified. EDMS 14:18 Ayden Fuller MD is Referral Physician. rn 15:13 Orthoglass splint: Thumb spica splint applied on left forearm. Volar splint applied on dh4 left arm. 15:20 No provider procedures requiring assistance completed. Patient did not have IV access iw during this emergency room visit. Administered Medications: No medications were administered Outcome: 14:19 Discharge ordered by . rn 15:27 Discharged to home via wheelchair, with friend. iw 15: Condition: good 15:27 Discharge instructions given to patient, friend, Instructed on discharge instructions, follow up and referral plans. medication usage, Demonstrated understanding of instructions, follow-up care, medications, splint care, Prescriptions given X 1. 15:28 Patient left the ED. iw Signatures: Dispatcher [employer] EDMaxine Brice RN Janusz Young MD MD rn Davies, Jonathon, RN RN jd3 Huhn, [facility]
--- NOTE | 2020-06-28 14:19 | EDPHYS ---
Physician Documentation [facility] Name: Joleen Boyer Age: 79 yrs Sex: Female : 1940 Arrival Date: 06/28/2020 Time: 13:13 Bed 2 Private MD: ED Physician Janusz Lara HPI: 06/28 13:22 This 79 yrs old Female presents to ER via EMS with complaints of Fall Injury, rn Hand Injury. 13:22 Details of fall: The patient fell from an upright position, while walking. Onset: The rn symptoms/episode began/occurred just prior to arrival. Associated injuries: The patient sustained left hand/wrist. Severity of symptoms: At their worst the symptoms were mild, in the emergency department the symptoms are unchanged. The patient has experienced a previous episode. The patient has not recently seen a physician. Reports rushing out of home, tripped, fell and hurt left hand/wrist. No other injury. No LOC. Remembers all events. Is right handed. . Historical: - Allergies: 13:14 Cephalexin Monohydrate; iw 13:14 Keflex; iw 13:14 Nitrofurantoin; iw 13:14 PENICILLINS; iw 13:14 Sulfa (Sulfonamide Antibiotics); iw 13:14 Tetracycline; iw - Home Meds: 13:14 diazepam 5 mg Oral tab 1 tab 3 times per day [Active]; Dilantin 30 mg Oral cap nightly iw [Active]; terbinafine HCl 250 mg Oral tab 1 tab once daily [Active]; - PMHx: 13:14 COPD; Depression; Hypertension; macular degeneration; stroke; iw - Immunization history:: Adult Immunizations up to date. - Family history:: not pertinent. - Social history:: Smoking status: . - Hospitalizations: : No recent hospitalization is reported. ROS: 13:24 Constitutional: Negative for fever, chills, and weight loss, Neck: Negative for injury, rn pain, and swelling, Cardiovascular: Negative for chest pain, palpitations, and edema, Respiratory: Negative for shortness of breath, cough, wheezing, and pleuritic chest pain, Abdomen/GI: Negative for abdominal pain, nausea, vomiting, diarrhea, and constipation, Back: Negative for injury and pain, MS/Extremity: + left wrist and hand pain/injury Skin: Negative for injury, rash, and discoloration, Neuro: Negative for headache, weakness, numbness, tingling, and seizure. Exam: 13:24 Constitutional: This is a well developed, well nourished patient who is awake, alert, rn and in no acute distress. Head/Face: Normocephalic, atraumatic. Eyes: Periorbital areas with no swelling, redness, or edema. Neck: Trachea midline, no thyromegaly or masses palpated, and no cervical lymphadenopathy. Supple, full range of motion without nuchal rigidity, or vertebral point tenderness. No Meningismus. Cardiovascular: Regular rate and rhythm. No pulse deficits. Respiratory: No increased work of breathing, no retractions or nasal flaring. Back: No spinal tenderness. MS/ Extremity: Pulses equal, no cyanosis. + mild tenderness and painful ROM left wrist and proximal hand. No gross deformity or open wounds. Abrasion to right knee with FROM. Neuro: Awake and alert, GCS 15 Vital Signs: 13:17 BP 142 / 95; Pulse 71; Resp 18 S; Temp 99.4(TE); Pulse Ox 94% on R/A; Weight 77.11 kg jd3 (R); Height 5 ft. 7 in. (170.18 cm) (R); Pain 8/10; 13:17 Body Mass Index 26.63 (77.11 kg, 170.18 cm) jd3 MDM: 13:17 Patient medically screened. rn 14:17 Differential diagnosis: contusion, fracture. Data reviewed: vital signs, nurses notes, rn radiologic studies, plain films, and as a result, I will discharge patient. Test interpretation: by ED physician or midlevel provider: plain radiologic studies, + fractures bases of left 2nd/3rd/4th MC, and proximal thumb. Counseling: I had a detailed discussion with the patient and/or guardian regarding: the historical points, exam findings, and any diagnostic results supporting the discharge/admit diagnosis, radiology results, the need for outpatient follow up, to return to the emergency department if symptoms worsen or persist or if there are any questions or concerns that arise at home. Response to treatment: the patient's symptoms have mildly improved after treatment, and as a result, I will discharge patient. Special discussion: I discussed with the patient/guardian in detail that at this point there is no indication for admission to the hospital. It is understood, however, that if the symptoms persist or worsen the patient needs to return immediately for re-evaluation. Based on the history and exam findings, there is no indication for further emergent testing or inpatient evaluation. I discussed with the patient/guardian the need to see the orthopedic surgeon for further evaluation of the symptoms. 06/28 13:21 Order name: XRAY Wrist LEFT 3 view; Complete Time: 14:15 rn 06/28 13:21 Order name: XRAY Hand LEFT 3 View; Complete Time: 14:14 rn 06/28 14:17 Order name: Splint: Volar splint left hand, with fingers at 90 degrees, slight rn extension at wrist; Complete Time: 15:13 06/28 14:21 Order name: Splint - Thumb Spica; Complete Time: 15:13 rn Administered Medications: No medications were administered Disposition: 06/28/20 14:19 Discharged to Home. Impression: Nondisplaced fracture of base of fourth metacarpal bone, left hand, Nondisplaced fracture of base of second metacarpal bone. left hand, Nondisplaced fracture of base of third metacarpal bone, left hand, Nondisplaced fracture of proximal phalanx of left thumb. - Condition is Stable. - Discharge Instructions: Cast or Splint Care, Adult, Metacarpal Fracture, Thumb Fracture. - Prescriptions for Tramadol 50 mg Oral Tablet - take 1 tablet by ORAL route every 12 hours as needed; 15 tablet. - Medication Reconciliation Form, Thank You Letter, Antibiotic Education, Prescription Opioid Use form. - Follow up: Ayden Fuller MD; When: 5 - 6 days; Reason: Recheck today's complaints, Re-evaluation by your physician. - Problem is new. - Symptoms have improved. Signatures: Dispatcher [employer] EDMS Maxine Vergara RN RN iw Nieto, Roman, MD MD ornithology teacher: (The following items were deleted from the chart) 13:27 13:24 Constitutional: This is a well developed, well nourished patient who is awake, rn alert, and in no acute distress. Head/Face: Normocephalic, atraumatic. Eyes: Periorbital areas with no swelling, redness, or edema. Neck: Trachea midline, no thyromegaly or masses palpated, and no cervical lymphadenopathy. Supple, full range of motion without nuchal rigidity, or vertebral point tenderness. No Meningismus. Cardiovascular: Regular rate and rhythm. No pulse deficits. Respiratory: No increased work of breathing, no retractions or nasal flaring. Back: No spinal tenderness. MS/ Extremity: Pulses equal, no cyanosis. + mild tenderness and painful ROM left wrist and proximal hand. No gross deformity or open wounds. Neuro: Awake and alert, GCS 15 rn 15:28 14:19 06/28/2020 14:19 Discharged to Home. Impression: Nondisplaced fracture of base of iw fourth metacarpal bone, left hand; Nondisplaced fracture of base of second metacarpal bone. left hand; Nondisplaced fracture of base of third metacarpal bone, left hand; Nondisplaced fracture of proximal phalanx of left thumb. Condition is Stable. Forms are Medication Reconciliation Form, Thank You Letter, Antibiotic Education, Prescription Opioid Use. Follow up: Ayden Fuller; When: 5 - 6 days; Reason: Recheck today's complaints, Re-evaluation by your physician. Problem is new. Symptoms have improved. rn
[2020-06-28 15:34] VITALS: BP 142/95; TEMP 99.4; O2SAT 94
== END 2020-06-28 15:28 | disposition home or self-care (01) ==
LOC: ER 13:12
PROC: 2W3KX1Z Immobilization of Left Finger using Splint (ICD-10-PCS; principal; 2020-06-28)
PROC: 2W3HX1Z Immobilization of Left Thumb using Splint (ICD-10-PCS; 2020-06-28)
DX: S62.345A Nondisplaced fracture of base of fourth metacarpal bone, left hand, initial encounter for closed fracture (principal); S62.341A Nondisplaced fracture of base of second metacarpal bone, left hand, initial encounter for closed fracture; S62.343A Nondisplaced fracture of base of third metacarpal bone, left hand, initial encounter for closed fracture; S62.515A Nondisplaced fracture of proximal phalanx of left thumb, initial encounter for closed fracture; W01.0XXA Fall on same level from slipping, tripping and stumbling without subsequent striking against object, initial encounter; Y93.01 Activity, walking, marching and hiking; Y92.009 Unspecified place in unspecified non-institutional (private) residence as the place of occurrence of the external cause; I10 Essential (primary) hypertension; F32.9 Major depressive disorder, single episode, unspecified; J44.9 Chronic obstructive pulmonary disease, unspecified; Z88.0 Allergy status to penicillin; Z88.1 Allergy status to other antibiotic agents; Z88.2 Allergy status to sulfonamides; Z88.8 Allergy status to other drugs, medicaments and biological substances
CPT/HCPCS: 99284

== ENCOUNTER 2020-07-09 07:08 | Day surgery (SDC) | payer OTHER ==
[2020-07-07 12:30] LABS: Absolute Lymphocytes (CBC) 1.2 K/uL (0.7-4.9); Basophils % 1.1 % (0-1.3); Hematocrit 42.9 % (36.0-45.0); Lymphocytes % 13.5 % (15.3-44.8); MPV 8.6 fL (7.6-11.3); RBC Red Blood Cell Count 4.48 M/uL (3.86-4.86)
[2020-07-07 12:52] LABS: Urine Appearance CLOUDY; Urine Blood NEGATIVE (NEG); Urine Color YELLOW; Urine Glucose NEGATIVE (NEG); Urine Protein 2+ (NEG)
[2020-07-07 13:08] LABS: Urine Microscopic Reflex ORDER UMIC
[2020-07-07 13:09] LABS: Urine Bilirubin NEGATIVE (NEG)
[2020-07-07 13:10] LABS: Urine Bacteria 20-50 /HPF (<20); Urine Culture Reflex Order REFLEXED; Urine Mucus LIGHT /HPF (NONE SEEN); Urine RBC <5 /HPF (NONE SEEN)
--- NOTE | 2020-07-08 07:21 | EKG ---
Test Date: 2020-07-07 Test Time: 10:22:13 Hotel Breakfast Attendant: ELOY MEASUREMENT RESULTS: Intervals: Rate: 77 IL: 170 QRSD: 74 QT: 384 QTc: 434 Gonzales: P: 89 IL: 170 QRS: 52 T: 80 INTERPRETIVE STATEMENTS: Normal sinus rhythm Normal ECG Compared to ECG 11/27/2017 13:48:09 No significant changes Electronically Signed On 07-08-20 07:19:41 CDT by Kun Calderon
[2020-07-09] MEDS ORDERED: NS 0.9% VIAL 10 ML ONE (07:26)
[2020-07-09] MEDS ORDERED: dexAMETHasone 4 MG/ML VIAL ONE (07:27)
[2020-07-09] MEDS ORDERED: ROPLVACAINE HCL 40 ML ONE (07:27)
[2020-07-09] MEDS ORDERED: MIDAZOLAM HCL 2 MG/2 ML INJ ONE (07:27)
[2020-07-09] MEDS ORDERED: FENTANYL CITR 100 MCG/2 ML ONE (07:27)
[2020-07-09] MEDS ORDERED: LIDOCAINE 2% MPF 5 ML VIAL ONE (07:27)
[2020-07-09] MEDS ORDERED: Ringers Lactate 1,000 ML IV ONE (08:02)
[2020-07-09] MEDS ORDERED: propofoL 200 MG/20 ML VIAL IV ONE (09:03)
[2020-07-09] MEDS ORDERED: CLINDAMYCIN 600MG/D5W 600 MG/50 ML BAG IV ONE (09:30)
--- NOTE | 2020-07-09 10:32 | OP ---
Surgeon: Ayden Fuller MD Preoperative Diagnosis: Closed fracture of the proximal phalanx of the left thumb and base of the metacarpal second, third and fourth. Postoperative Diagnosis: Closed fracture of the proximal phalanx of the left thumb and base of the metacarpal second, third and fourth. Procedure: Closed reduction and percutaneous pinning of fracture of second, third, fourth metacarpals and splint. Anesthesia: General. Procedure In Detail: After satisfactory induction of general anesthesia, left hand was prepped with Betadine scrub and paint dry, sterile drapes were applied in the usual manner. Hand was placed on the OR table. A 0.045 K-wire was passed from distal to proximal with MCP 90 degrees. C-arm was used for guidance. Two K-wires were placed in the index finger metacarpal base into the proximal carpal bones reducing the fracture. The third and fourth metacarpals required one pin each that was placed. The fracture at the base of the thumb proximal phalanx was minimally displaced. Then dressed with 2 inch Jass, Kerlix, and then a splint holding the wrist in 10 degrees of dorsiflexion, MCP 90, PIP and DIP 0, the thumb in extension. The patient tolerated procedure well and returned to Recovery. BAYRON/LATRICIA Voice ID: [id number] Report ID: [id number] CARYL
[2020-07-09 10:43] VITALS: BP 120/96; TEMP 97.5; O2SAT 95
[2020-07-09] MEDS ORDERED: ACETAMINOPHEN 325 MG TABLET ONE (11:12)
--- NOTE | 2020-07-09 11:33 | RAD REPORT ---
EXAM DESCRIPTION: RAD -Hand Left 3 View - 07/09/2020 10:54 am CLINICAL HISTORY: Left hand surgery FINDINGS: Forty-one fluoroscopic spot images obtained Fluoroscopy time 2 minutes. Open reduction and internal fixation of fractures of the second, third an d fourth metacarpals performed Surgery performed by Dr. Fuller The last fluoroscopic spot image appears to show that the 2 pins do not traverse the proximal fractur e fragment at the base of the second metacarpal. This can be further evaluated on a regular x-ray
== END 2020-07-09 11:30 | disposition home or self-care (01) ==
LOC: OR 07:08
PROVIDERS: ATTEND Specialist
PROC: 0PSQ34Z Reposition Left Metacarpal with Internal Fixation Device, Percutaneous Approach (ICD-10-PCS; 2020-07-09)
PROC: 0PSQ34Z Reposition Left Metacarpal with Internal Fixation Device, Percutaneous Approach (ICD-10-PCS; 2020-07-09)
PROC: 0PSQ34Z Reposition Left Metacarpal with Internal Fixation Device, Percutaneous Approach (ICD-10-PCS; principal; 2020-07-09 08:00)
DX: S62.311A Displaced fracture of base of second metacarpal bone, left hand, initial encounter for closed fracture (principal); S62.313A Displaced fracture of base of third metacarpal bone, left hand, initial encounter for closed fracture; S62.315A Displaced fracture of base of fourth metacarpal bone, left hand, initial encounter for closed fracture; S62.512A Displaced fracture of proximal phalanx of left thumb, initial encounter for closed fracture; I10 Essential (primary) hypertension; R56.9 Unspecified convulsions; Z20.828 Contact with and (suspected) exposure to other viral communicable diseases; Z88.0 Allergy status to penicillin; Z88.1 Allergy status to other antibiotic agents; Z86.718 Personal history of other venous thrombosis and embolism; Z87.891 Personal history of nicotine dependence
CPT/HCPCS: 93005; 87088; 85025; 87086; 36415; 73130; 26608 ×3; U0002; J2704; J1100; J2250; J3010; J2795; J7120; 81003; 81015

== ENCOUNTER 2020-08-10 14:02 | Inpatient (IN) | payer OTHER ==
[2020-08-10 14:45] LABS: Absolute Lymphocytes (CBC) 1.4 K/uL (0.7-4.9); Basophils % 0.8 % (0-1.3); Hematocrit 48.2 % (36.0-45.0); Lymphocytes % 13.9 % (15.3-44.8); RBC Red Blood Cell Count 4.99 M/uL (3.86-4.86)
--- NOTE | 2020-08-10 14:57 | RAD REPORT ---
EXAM DESCRIPTION: CT - Head Brain Wo Cont - 08/10/2020 2:39 pm CLINICAL HISTORY: Alteration of awareness/confusion COMPARISON: 2008 TECHNIQUE: Computed axial tomography of the head was obtained. IV contrast was not requested. All CT scans are performed using dose optimization technique as appropriate and may include automated exposure control or mA/KV adjustment according to patient size. FINDINGS: An intracranial bleed is not seen . The ventricles are normal in caliber. No extra-axial fluid collection is noted. 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 Fluid within the sinuses/ mastoids is not seen. IMPRESSION: No acute intracranial abnormality is seen. If patient's symptoms persist MRI of the bra in would be recommended.
[2020-08-10 15:04] LABS: Potassium 4.2 mmol/L (3.5-5.1)
--- NOTE | 2020-08-10 15:04 | EDPHYS ---
Physician Documentation [facility] Name: Joleen Boyer Age: 79 yrs Sex: Female : 1940 Arrival Date: 08/10/2020 Time: 14:05 Bed 15 Private MD: ED Physician Janusz Lara HPI: 08/10 14:08 This 79 yrs old Female presents to ER via Unassigned with complaints of rn Altered Mental Status. 14:08 The patient presents with confusion. Onset: The symptoms/episode began/occurred 3 rn day(s) ago. Possible causes: unknown. Associated signs and symptoms: Pertinent positives: confusion, Pertinent negatives: abdominal pain, chest pain, combativeness, headache, shortness of breath, vomiting, weakness. Current symptoms: In the emergency department the patient's symptoms have improved. It is unknown whether or not the patient has had similar symptoms in the past. It is unknown whether or not the patient has recently seen a physician. Per EMS reports, in assisted living, helpers report 3 days of confusion, not acting like herself. Did not know what city she was in earlier, now she is oriented x 3. No head injury. No cough/chest pain/sob/abd pain. Reports has to self-cath to urinate, and per report uses same catheter each time. No focal weakness or complaint by EMS or patient. . Historical: - Allergies: 14:09 Cephalexin Monohydrate; sv 14:09 Keflex; sv 14:09 Nitrofurantoin; sv 14:09 Nitrofurantoin Macrocrystal; sv 14:09 PENICILLINS; sv 14:09 Sulfa (Sulfonamide Antibiotics); sv 14:09 Tetracycline; sv - PMHx: 14:09 COPD; Depression; Hypertension; macular degeneration; stroke; sv - Immunization history:: Adult Immunizations unknown. - Family history:: not pertinent. - Social history:: Smoking status: unknown. - Hospitalizations: : No recent hospitalization is reported. ROS: 14:08 Constitutional: Negative for fever, chills, and weight loss, Eyes: Negative for injury, rn pain, redness, and discharge, Neck: Negative for injury, pain, and swelling, Cardiovascular: Negative for chest pain, palpitations, and edema, Respiratory: Negative for shortness of breath, cough, wheezing, and pleuritic chest pain, Abdomen/GI: Negative for abdominal pain, nausea, vomiting, diarrhea, and constipation, Back: Negative for injury and pain, : Negative for injury, bleeding, discharge, and swelling, MS/Extremity: + subacute injury to left hand/wrist Skin: Negative for injury, rash, and discoloration, Neuro: Negative for headache, weakness, numbness, tingling, and seizure. Exam: 14:08 Constitutional: This is a well developed, well nourished patient who is awake, alert, rn and in no acute distress. Head/Face: Normocephalic, atraumatic. Eyes: Periorbital areas with no swelling, redness, or edema. + baseline left eye blindness and exotropia ENT: dry MM Neck: Trachea midline, no masses palpated, and no cervical lymphadenopathy. Supple, full range of motion without nuchal rigidity, or vertebral point tenderness. No Meningismus. Cardiovascular: Regular rate and rhythm. No pulse deficits. Respiratory: Speaking full sentences. No increased work of breathing, no retractions or nasal flaring. Abdomen/GI: soft, non-tender Skin: Warm, dry MS/ Extremity: Pulses equal, no cyanosis. Neurovascular intact. Full, normal range of motion. Equal circumference. Neuro: Awake and alert, GCS 15, oriented to person, place, time, and situation. Cranial nerves II-XII grossly intact. Motor strength 5/5 in all extremities. Sensory grossly intact. Cerebellar exam normal. Vital Signs: 14:06 BP 167 / 93; Pulse 72; Resp 14; Temp 98.4; Pulse Ox 97% ; sv 14:51 BP 145 / 67; Pulse 67 MON; Resp 18; Pulse Ox 95% ; sv 16:10 BP 142 / 75; Pulse 66 MON; Resp 15; Pulse Ox 96% ; sv 17:30 BP 146 / 99; Pulse 66 MON; Resp 13; Pulse Ox 96% on R/A; sv 18:15 BP 154 / 77; Pulse 74 MON; Resp 14; Pulse Ox 99% on R/A; sv 19:10 BP 161 / 117; Pulse 76; Resp 19; Temp 98; Pulse Ox 98% ; rr5 20:00 BP 151 / 95; Pulse 70; Resp 19; Temp 98; Pulse Ox 100% ; rr5 14:51 Sinus Rhythm sv 16:10 Sinus Rhythm sv 17:30 Sinus Rhythm sv 18:15 Sinus Rhythm sv MDM: 14:05 Patient medically screened. rn 15:02 Differential Diagnosis: electrolyte abnormality, TIA, UTI, volume depletion, COPD. Data rn reviewed: vital signs, nurses notes, lab test result(s), EKG, radiologic studies, CT scan. Counseling: I had a detailed discussion with the patient and/or guardian regarding: the historical points, exam findings, and any diagnostic results supporting the discharge/admit diagnosis, lab results, radiology results, the need for further work-up and treatment in the hospital. Response to treatment: the patient's symptoms have mildly improved after treatment, and as a result, I will admit patient. Admission orders: after a detailed discussion of the patient's condition and case, the admit orders are written by me. ED course: Pt improved, still slightly confused, doesn't know how she got here, + UTI, multiple allergies so cipro ordered, culture sent, was cath specimen. Admitted to hospitalist service.. 08/10 14:06 Order name: CBC with Diff; Complete Time: 15:59 rn 08/10 14:06 Order name: Basic Metabolic Panel; Complete Time: 15:59 rn 08/10 14:06 Order name: Urine Culture rn 08/10 14:06 Order name: Urine Microscopic Only; Complete Time: 15:59 rn 08/10 14:06 Order name: Blood Culture Adult (2) rn 08/10 14:06 Order name: Procalcitonin; Complete Time: 15:59 rn 08/10 14:06 Order name: CT Head Brain wo Cont; Complete Time: 15:00 rn 08/10 14:24 Order name: Dilantin; Complete Time: 16:16 rn 08/10 14:29 Order name: Urine Dipstick--Ancillary (enter results); Complete Time: 15:59 bd 08/11 03:48 Order name: CBC with Automated Diff EDPA 08/11 03:59 Order name: Comprehensive Metabolic Panel EDPA 08/11 03:59 Order name: Magnesium EDPA 08/11 04:41 Order name: CBC Smear Scan EDPA 08/11 16:07 Order name: CORONAVIRUS EDPA 08/10 14:06 Order name: IV Start; Complete Time: 14:36 rn 08/10 14:06 Order name: Urine Dipstick-Ancillary (obtain specimen); Complete Time: 14:29 rn 08/10 14:06 Order name: EKG; Complete Time: 14:08 rn 08/10 14:06 Order name: EKG - Nurse/Tech; Complete Time: 14:29 rn Administered Medications: 15:16 Drug: NS 0.9% 500 ml Route: IV; Rate: bolus; Site: right antecubital; sv 16:30 Follow up: Response: No adverse reaction; IV Status: Completed infusion; IV Intake: sv 500ml 15:16 Drug: Cipro 400 mg Volume: 200 ml; Route: IVPB; Infused Over: 60 mins; Site: right sv antecubital; 16:26 Follow up: Response: No adverse reaction; IV Status: Completed infusion; IV Intake: sv 200ml Disposition: 08/10/20 15:04 Hospitalization ordered by Rah Lara for Inpatient Admission. Preliminary diagnosis are Delirium due to known physiological condition, Urinary tract infection, site not specified, Altered mental status, unspecified. - Bed requested for Telemetry/MedSurg (Inpatient). - Status is Inpatient Admission. dm5 - Condition is Stable. - Problem is new. - Symptoms are unchanged. Signatures: Dispatcher [employer] EDMS Shweta Peters RN RN dm5 Sanna Jimenez RN JON Janusz Lara MD MD rn Smirch, Shelby RN JON Wendi Aguilar, RN RN tl1 Corrections: (The following items were deleted from the chart) 14:10 14:08 Constitutional: Negative for fever, chills, and weight loss, Eyes: Negative for rn injury, pain, redness, and discharge, Neck: Negative for injury, pain, and swelling, Cardiovascular: Negative for chest pain, palpitations, and edema, Respiratory: Negative for shortness of breath, cough, wheezing, and pleuritic chest pain, Abdomen/GI: Negative for abdominal pain, nausea, vomiting, diarrhea, and constipation, Back: Negative for injury and pain, : Negative for injury, bleeding, discharge, and swelling, MS/Extremity: Negative for injury and deformity, Skin: Negative for injury, rash, and discoloration, Neuro: Negative for headache, weakness, numbness, tingling, and seizure, rn 18:55 15:04 Hospitalization Ordered by Rah Lara MD for Inpatient Admission. Preliminary ss diagnosis is Delirium due to known physiological condition; Urinary tract infection, site not specified; Altered mental status, unspecified. Bed requested for Telemetry/MedSurg (Inpatient). Status is Inpatient Admission. Condition is Stable. Problem is new. Symptoms are unchanged. rn 08/11 21:02 08/10 18:55 08/10/2020 15:04 Hospitalization Ordered by Rah Lara MD for Inpatient tl1 Admission. Preliminary diagnosis is Delirium due to known physiological condition; Urinary tract infection, site not specified; Altered mental status, unspecified. Bed requested for [facility] ER HOLD. Status is Inpatient Admission. Condition is Stable. Problem is new. Symptoms are unchanged. ss 08/11 23:19 21:02 08/10/2020 15:04 Hospitalization Ordered by Rah Lara MD for Inpatient dm5 Admission. Preliminary diagnosis is Delirium due to known physiological condition; Urinary tract infection, site not specified; Altered mental status, unspecified. Bed requested for Telemetry/MedSurg (Inpatient). Status is Inpatient Admission. Condition is Stable. Problem is new. Symptoms are unchanged. tl1
--- NOTE | 2020-08-10 15:04 | ER ---
Nurse's Notes [facility] Name: Joleen Boyer Age: 79 yrs Sex: Female : 1940 Arrival Date: 08/10/2020 Time: 14:05 Bed 15 Private MD: Diagnosis: Delirium due to known physiological condition;Urinary tract infection, site not specified;Altered mental status, unspecified Presentation: 08/10 14:06 Chief complaint: EMS states: lives at [facility] and staff that works there stated sv about 3 days ago she started "acting confused" and today was still acting the same. Pt reports that she is not confused. Coronavirus screen: Client denies travel out of the [place] in the last 14 days. At this time, the client does not indicate any symptoms associated with coronavirus-19. Ebola Screen: No symptoms or risks identified at this time. Initial Sepsis Screen: Does the patient meet any 2 criteria? No. Patient's initial sepsis screen is negative. Does the patient have a suspected source of infection? No. Patient's initial sepsis screen is negative. Risk Assessment: Do you want to hurt yourself or someone else? Patient reports no desire to harm self or others. Onset of symptoms was August 07, 2020. 14:06 Method Of Arrival: EMS: [facility] sv 14:06 Acuity: YORYD 3 sv Triage Assessment: 14:06 General: Appears in no apparent distress. comfortable, well groomed, well developed, sv Behavior is calm, cooperative, appropriate for age. Pain: Denies pain. Neuro: Level of Consciousness is awake, alert, obeys commands, Oriented to person, place, time, situation, Knitting Demonstrator are equal bilaterally Moves all extremities. Full function Speech is normal, Facial symmetry appears normal, Denies blurred vision dizziness. Cardiovascular: Patient's skin is warm and dry. Rhythm is sinus rhythm. Respiratory: Airway is patent Respiratory effort is even, unlabored, Respiratory pattern is regular, symmetrical. Derm: Skin is pink, warm \\T\\ dry. Musculoskeletal: Pt has a hard splint on her left hand. She states that she has a broken hand. Historical: - Allergies: 14:09 Cephalexin Monohydrate; sv 14:09 Keflex; sv 14:09 Nitrofurantoin; sv 14:09 Nitrofurantoin Macrocrystal; sv 14:09 PENICILLINS; sv 14:09 Sulfa (Sulfonamide Antibiotics); sv 14:09 Tetracycline; sv - PMHx: 14:09 COPD; Depression; Hypertension; macular degeneration; stroke; sv - Immunization history:: Adult Immunizations unknown. - Family history:: not pertinent. - Social history:: Smoking status: unknown. - Hospitalizations: : No recent hospitalization is reported. Screenin:09 Abuse screen: Denies threats or abuse. Denies injuries from another. Nutritional sv screening: No deficits noted. Tuberculosis screening: No symptoms or risk factors identified. Fall Risk None identified. Assessment: 14:20 Reassessment: Ok by Dr Lara to do a straight cath on pt to obtain a urine. Pt reports sv that she self caths at home. 15:16 Reassessment: Patient appears in no apparent distress at this time. No changes from sv previously documented assessment. Patient and/or family updated on plan of care and expected duration. Pain level reassessed. Patient is alert, oriented x 3, equal unlabored respirations, skin warm/dry/pink. 15:48 Reassessment: Dr Rah Lara at the bedside. sv 16:10 Reassessment: Patient appears in no apparent distress at this time. No changes from sv previously documented assessment. Patient and/or family updated on plan of care and expected duration. Pain level reassessed. Patient is alert, oriented x 3, equal unlabored respirations, skin warm/dry/pink. Pt has intermittent confusion. 17:45 Reassessment: Patient appears in no apparent distress at this time. No changes from sv previously documented assessment. Patient and/or family updated on plan of care and expected duration. Pain level reassessed. Pt continues with intermittent confusion. 18:14 Reassessment: Patient appears in no apparent distress at this time. Patient and/or sv family updated on plan of care and expected duration. Pain level reassessed. Patient is alert, oriented x 3, equal unlabored respirations, skin warm/dry/pink. Pt continues with intermittent confusion. Vital Signs: 14:06 BP 167 / 93; Pulse 72; Resp 14; Temp 98.4; Pulse Ox 97% ; sv 14:51 BP 145 / 67; Pulse 67 MON; Resp 18; Pulse Ox 95% ; sv 16:10 BP 142 / 75; Pulse 66 MON; Resp 15; Pulse Ox 96% ; sv 17:30 BP 146 / 99; Pulse 66 MON; Resp 13; Pulse Ox 96% on R/A; sv 18:15 BP 154 / 77; Pulse 74 MON; Resp 14; Pulse Ox 99% on R/A; sv 19:10 BP 161 / 117; Pulse 76; Resp 19; Temp 98; Pulse Ox 98% ; rr5 20:00 BP 151 / 95; Pulse 70; Resp 19; Temp 98; Pulse Ox 100% ; rr5 14:51 Sinus Rhythm sv 16:10 Sinus Rhythm sv 17:30 Sinus Rhythm sv 18:15 Sinus Rhythm sv ED Course: 14:05 Patient arrived in ED. rn 14:05 Janusz Lara MD is Attending Physician. rn 14:05 Sanna Jimenez RN is Primary Nurse. sv 14:06 Arm band placed on. sv 14:08 Triage completed. sv 14:09 Patient has correct armband on for positive identification. Placed in gown. Bed in low sv position. Call light in reach. Side rails up X2. rn acute care on. Pulse ox on. NIBP on. Door closed. Head of bed elevated. 14:15 First set of blood cultures drawn by me. sv 14:16 EKG done, by ED staff, reviewed by Janusz Lara MD. dh3 14:25 Straight cath inserted, using sterile technique, 16 Fr. Specimen obtained. Returned sv cloudy urine. Patient tolerated well. 14:29 Urine Microscopic Only Sent. dh3 14:30 Urine Culture Sent. dh3 14:30 Second set of blood cultures drawn by me. Inserted saline lock: 20 gauge in right sv antecubital area, using aseptic technique. Blood collected. Flushed right antecubital with 2 ml normal saline. 14:[address] via stretcher. sv 14:39 CT Head Brain wo Cont In Process Unspecified. EDMS 15:03 Rah Lara MD is Hospitalizing Provider. rn 16:10 Straight cath inserted, using sterile technique, 16 Fr. Returned cloudy urine. Patient sv tolerated well. 17:23 Awaiting bed assignment. sv 18:14 Awaiting bed assignment. sv 18:57 Primary Nurse role handed off by Sanna Jimenez RN sv 18:57 Report given to Linden WEBB and Rah WEBB. sv 19:44 Rah Oshea RN is Primary Nurse. rr5 Administered Medications: 15:16 Drug: NS 0.9% 500 ml Route: IV; Rate: bolus; Site: right antecubital; sv 16:30 Follow up: Response: No adverse reaction; IV Status: Completed infusion; IV Intake: sv 500ml 15:16 Drug: Cipro 400 mg Volume: 200 ml; Route: IVPB; Infused Over: 60 mins; Site: right sv antecubital; 16:26 Follow up: Response: No adverse reaction; IV Status: Completed infusion; IV Intake: sv 200ml Intake: 16:26 IV: 200ml; Total: 200ml. sv 16:30 IV: 500ml; Total: 700ml. sv Output: 14:25 Urine: 200ml (Straight Cath); Total: 200ml. sv 16:10 Urine: 100ml (Straight Cath); Total: 300ml. sv Outcome: 15:04 Decision to Hospitalize by Provider. rn 08/11 23:19 Patient left the ED. dm5 Signatures: Dispatcher [employer] EDMS Shweta Peters RN RN dm5 Sanna Jimenez RN RN sv Nieto, Roman, MD MD rn Herrera, Deanna 3 Rah Oshea RN RN rr5 Corrections: (The following items were deleted from the chart) 08/10 17:44 14:51 BP 145 / 67; Pulse 67bpm; Resp 18bpm; Pulse Ox 95%; sv sv 17:44 16:10 BP 142 / 75; Pulse 66bpm; Resp 15bpm; Pulse Ox 96%; sv sv
[2020-08-10 15:08] LABS: Urine Blood 1+ (NEG); Urine Glucose NEGATIVE (NEG); Urine Protein 2+ (NEG); Urine Specific Gravity 1.025 (1.005-1.030)
[2020-08-10 15:08] LABS: Urine Amorphous Sediment 1+ /HPF (NONE SEEN); Urine Bacteria 20-50 /HPF (<20); Urine Mucus 2+ /HPF (NONE SEEN)
[2020-08-10] MEDS ORDERED: NA CHLORIDE 0.9% 500 ML ONE (15:19)
[2020-08-10] MEDS ORDERED: CIPROFLOXACIN 400mg IV 400 MG/200 ML BAG IV ONE (15:19)
--- NOTE | 2020-08-10 16:13 | P.HP ---
Certification for Inpatient Patient admitted to: Inpatient With expected LOS: >2 Midnights Practitioner: I am a practitioner with admitting privileges, knowledge of patient current condition, hospital course, and medical plan of care. Services: Services provided to patient in accordance with Admission requirements found in Title 42 Section 412.3 of the Code of Federal Regulations Patient History Date of Service: 08/10/20 Reason for admission: Delirium / UTI History of Present Illness: 79-year-old female, PMH: History of prior stroke leading to neurogenic bladder requiring intermittent straight cath, hypertension, seizures who was sent in from [facility] due to altered mental status/confusion over the past 2-3 days. Patient is a poor historian. HPI obtained from ED and EMR. She reports feeling some bladder fullness, but has otherwise been herself. She denies confusion. She reports having a history of UTIs, and multiple allergies to antibiotics. In the ED, workup revealed urine grossly positive for infection. Patient does not appear septic, no leukocytosis. She was noted to have confusion. CT brain was negative for any acute findings. Given her ongoing confusion, I was consulted for admission. Allergies nitrofurantoin macrocrystal [From Macrobid] Allergy (Severe, Verified 07/07/20 11:11) Itching/Hives/Rash cephalexin monohydrate [From Keflex] Allergy (Verified 07/07/20 11:11) Hives nitrofurantoin [From Macrobid] Allergy (Verified 07/07/20 11:11) Unknown Penicillins Allergy (Verified 07/07/20 11:11) Hives tetracycline [Tetracycline] Allergy (Verified 07/07/20 11:11) Hives Sulfa (Sulfonamid Allergy (Uncoded 11/28/17 02:38) Unknown tetracycline Allergy (Uncoded 11/28/17 02:37) Unknown Home Medications: Phenytoin Sodium Extended [Dilantin] 360 mg PO BEDTIME 02/07/17 diazePAM [Diazepam] 5 mg PO TID 11/28/17 Polyethylene Glycol 3350 [Miralax] 17 gm PO PRN PRN 07/07/20 - Past Medical/Surgical History Diabetic: No -: Seizure disorder -: Neurogenic bladder -: Patient self caths -: Hypertension -: tonsillectomy -: hysterectomy -: left femur fx Psychosocial/ Personal History: The patient is a . She has 2 children. She is living in a snf - Social History Smoking Status: Unknown if ever smoked Alcohol use: No CD- Drugs: No Caffeine use: Yes Place of Residence: Longterm Review of Systems 10-point ROS is otherwise unremarkable Physical Examination - Physical Exam General: Alert, Oriented x3, Confused HEENT: Sclerae nonicteric Respiratory: Clear to auscultation bilaterally, Normal air movement Cardiovascular: No edema, Regular rate/rhythm Gastrointestinal: Soft and benign, Non-distended, No tenderness Musculoskeletal: No erythema, No tenderness Integumentary: No rashes Neurological: Normal speech, Normal strength at 5/5 x4 extr, Cranial nerves 3-12 intact - Studies Laboratory Data (last 24 hrs) 08/10/20 14:30: Sodium 136, Potassium 4.2, BUN 10, Creatinine 0.71, Glucose 105 08/10/20 14:30: WBC 10.3, Hgb 15.9 H, Hct 48.2 H, Plt Count 455 H Assessment and Plan - Advance Directives Does patient have a Living Will: No Does patient have a Durable POA for Healthcare: Yes Physician Review Additional Text: Delirium Urinary tract infection, cystitis Neurogenic bladder Seizure disorder Hypertension -delirium likely secondary to urinary tract infection. -CT brain negative -denies any new medications/drugs -has multiple antibiotic allergies, will continue with ciprofloxacin -cultures obtained, will follow -if no improvement, consider obtaining MRI brain, patient's neuro exam nonfocal -swallow eval, advance diet after passing -will monitor on telemetry -intermittent straight cath as needed VTE: lovenox Code: DNR - confirmed with patient's daughter Dispo: anticipate dc back to snf pending resolution of delirium and cultures Time Spent Managing Pts Care (In Minutes): 55
[2020-08-10] MEDS: NA CHLORIDE 0.9% 1,000 ML IV SCH (19:44)
[2020-08-10] MEDS ORDERED: NA CHLORIDE 0.9% 0 ML ONE (20:04)
[2020-08-10] MEDS ORDERED: METHYLPREDNISOLONE 125 MG INJ ONE (22:22)
[2020-08-11] MEDS ORDERED: NA CHLORIDE 0.9% 1,000 ML ONE ×2 (00:12→08:36)
[2020-08-11] MEDS: CIPROFLOXACIN 400mg IV 400 MG/200 ML BAG IV SCH ×2 (02:23→14:39)
[2020-08-11] MEDS ORDERED: CIPROFLOXACIN 400mg IV 400 MG/200 ML BAG IV ONE ×2 (02:36→14:50)
[2020-08-11 03:44] LABS: Absolute Lymphocytes (CBC) 0.9 K/uL (0.7-4.9); Basophils % 2.3 % (0-1.3); Hematocrit 46.6 % (36.0-45.0); Lymphocytes % 5.7 % (15.3-44.8); MPV 8.7 fL (7.6-11.3)
[2020-08-11 03:58] LABS: ALT/SGPT 10 U/L (12-78); AST/SGOT 15 U/L (15-37); Albumin 3.7 g/dL (3.4-5.0); Alkaline Phosphatase 108 U/L (45-117); BUN Blood Urea Nitrogen 9 mg/dL (7-18); Bicarbonate 30 mmol/L (21-32); Bilirubin Total 0.3 mg/dL (0.2-1.0); Glucose Level 85 mg/dL (74-106); Magnesium 2.4 mg/dL (1.8-2.4); Potassium 4.8 mmol/L (3.5-5.1); Protein, Total 7.5 g/dL (6.4-8.2); Sodium Level 136 mmol/L (136-145)
[2020-08-11 04:02] VITALS: BMI 24.0
[2020-08-11 04:41] LABS: Blood Morphology Comment NOT SEEN (NOT SEEN); Platelet Estimate ADEQ; White Blood Cell Scan OK (OK)
[2020-08-11] MEDS ORDERED: ENOXAPARIN 40 MG/0.4 ML SQ ONE (08:31)
[2020-08-11] MEDS: NA CHLORIDE 0.9% 1,000 ML IV SCH ×2 (09:58→22:24)
[2020-08-11] MEDS: ENOXAPARIN 40 MG/0.4 ML SQ SCH (09:58)
--- NOTE | 2020-08-11 13:23 | P.PN ---
Subjective Date of Service: 08/11/20 Chief Complaint: Delirium / UTI Patient remain drowsy. She denies confusion. Physical Examination - Vital Signs Temperature: 98.3 F Blood Pressure: 145/79 Pulse: 73 Respirations: 19 Pulse Ox (%): 100 - Physical Exam General: Confused HEENT: Mucous membr. moist/pink Neck: Supple, JVD not distended Respiratory: Clear to auscultation bilaterally, Normal air movement Cardiovascular: No edema, Regular rate/rhythm, Normal S1 S2 Gastrointestinal: Normal bowel sounds, Soft and benign, No tenderness Musculoskeletal: No swelling, No tenderness Integumentary: No rashes, No erythema Neurological: Other (Nonfocal) - Studies Laboratory Data (last 24 hrs) 08/10/20 14:30: Sodium 136, Potassium 4.2, BUN 10, Creatinine 0.71, Glucose 105 08/10/20 14:30: WBC 10.3, Hgb 15.9 H, Hct 48.2 H, Plt Count 455 H Assessment And Plan - Current Problems (Diagnosis) (1) Metabolic encephalopathy Current Visit: Yes Status: Acute (2) Acute cystitis without hematuria Current Visit: Yes Status: Acute (3) Dilantin toxicity Current Visit: No Status: Acute (4) Neurogenic bladder Onset Date: 11/28/17 Current Visit: No Status: Chronic (5) Seizure disorder Onset Date: 11/28/17 Current Visit: No Status: Chronic (6) Hypertension Current Visit: Yes Status: Acute - Plan Urine culture is growing Gram negative rods. Patient has leukocytosis today. Noted phenytoin level was up to 33 yesterday. Continue IV Rocephin. Continue hydration with IV normal saline. Follow urine culture result. Monitor phenytoin level and resume Dilantin as needed. No dysphagia per swallowing evaluation. Resume diet. Physician Review Additional Text: Delirium Urinary tract infection, cystitis Neurogenic bladder Seizure disorder Hypertension -delirium likely secondary to urinary tract infection. -CT brain negative -denies any new medications/drugs -has multiple antibiotic allergies, will continue with ciprofloxacin -cultures obtained, will follow -if no improvement, consider obtaining MRI brain, patient's neuro exam nonfocal -swallow eval, advance diet after passing -will monitor on telemetry -intermittent straight cath as needed VTE: lovenox Code: DNR - confirmed with patient's daughter Dispo: anticipate dc back to assisted pending resolution of delirium and cultures
--- NOTE | 2020-08-11 19:05 | RAD REPORT ---
EXAM DESCRIPTION: RAD - Hand Left 2 View - 08/11/2020 6:33 pm CLINICAL HISTORY: Pain COMPARISON: Hand Left 3 View dated 07/09/2020; Hand Left 3 View dated 06/28/2020 FINDINGS: Fracture fixation hardware has been removed since the July 09 surgical procedure. Bones are osteopenic. There is partial bony union across the second metacarpal fracture. The dorsal and ul na side angulation of the second metacarpal shaft appears similar to the final positioning at the werner e of the fracture fixation procedure. Callus formation is present along the dorsal and ulna side brett in. The third and fourth metacarpal fractures show good bony bridging. No change in alignment or position ing. Underlying degenerative change again noted. 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 Alignme nt and position of these metacarpals appears to matches the positioning at the time of final fracture repair positioning. No finding to suggest re- fracture or new finding elsewhere in the hand.
[2020-08-12] MEDS ORDERED: PHENYTOIN ER 100 MG CAP PO ONE ×2 (01:27→04:08)
[2020-08-12] MEDS: CIPROFLOXACIN 400mg IV 400 MG/200 ML BAG IV SCH (04:02)
[2020-08-12] MEDS ORDERED: HOME MED 1 EA UNK PO ONE (06:03)
--- NOTE | 2020-08-12 06:11 | EKG ---
Test Date: 2020-08-10 Test Time: 14:16:52 [employer]: SUSAN MEASUREMENT RESULTS: Intervals: Rate: 70 CT: 176 QRSD: 78 QT: 388 QTc: 419 [place]: P: 84 CT: 176 QRS: 51 T: 75 INTERPRETIVE STATEMENTS: Normal sinus rhythm Possible Left atrial enlargement Septal infarct, age undetermined Abnormal ECG Compared to ECG 07/07/2020 10:22:13 Myocardial infarct finding now present Electronically Signed On 08-12-20 06:09:40 ROBOT TECHNICIAN by Kun Calderon
[2020-08-12] MEDS: NA CHLORIDE 0.9% 1,000 ML IV SCH ×2 (10:24→11:44)
[2020-08-12] MEDS: ENOXAPARIN 40 MG/0.4 ML SQ SCH (10:25)
[2020-08-12] MEDS: GENTAMICIN 100 MG/100 ML BAG 100 ML IV SCH ×2 (10:25→23:01)
--- NOTE | 2020-08-12 13:05 | P.PN ---
Subjective Date of Service: 08/12/20 Chief Complaint: Delirium / UTI Patient is more awake and communicating today. She is oriented to person, place. She has been afebrile. Physical Examination - Vital Signs Temperature: 99.3 F Blood Pressure: 138/71 Pulse: 86 Respirations: 18 Pulse Ox (%): 95 - Physical Exam General: In no apparent distress, Oriented x2, Other (Awake) HEENT: Mucous membr. moist/pink Neck: Supple Respiratory: Clear to auscultation bilaterally, Normal air movement Cardiovascular: No edema, Regular rate/rhythm, Normal S1 S2 Gastrointestinal: Normal bowel sounds, Soft and benign, Non-distended, No tenderness Musculoskeletal: No swelling, No tenderness Integumentary: No rashes, No erythema Neurological: Normal speech, Normal strength at 5/5 x4 extr, Cranial nerves 3-12 intact - Studies Microbiology Data (last 24 hrs): 08/10/20 14:23 Catheterized Urine [place] Count - Final >100,000 CFU/ML. 08/10/20 14:23 Catheterized Urine - Final Escherichia Coli Assessment And Plan - Current Problems (Diagnosis) (1) Metabolic encephalopathy Current Visit: Yes Status: Acute (2) Acute cystitis without hematuria Current Visit: Yes Status: Acute (3) Dilantin toxicity Current Visit: No Status: Acute (4) Neurogenic bladder Onset Date: 11/28/17 Current Visit: No Status: Chronic (5) Seizure disorder Onset Date: 11/28/17 Current Visit: No Status: Chronic (6) Hypertension Current Visit: Yes Status: Acute - Plan Urine culture is growing E. coli. Given patient multiple antibiotics allergies, antibiotics choice is limited to gentamicin. Patient started on IV gentamicin. IV Cipro is discontinued Infectious disease consult requested. Continue hydration with IV normal saline. Monitor phenytoin level and resume Dilantin as needed. No dysphagia per swallowing evaluation. Diet resumed.
[2020-08-13] MEDS: NA CHLORIDE 0.9% 1,000 ML IV SCH ×3 (00:05→14:24)
[2020-08-13 05:57] LABS: Absolute Lymphocytes (CBC) 1.3 K/uL (0.7-4.9); Basophils % 0.7 % (0-1.3); Hematocrit 42.8 % (36.0-45.0); Lymphocytes % 14.7 % (15.3-44.8); MPV 8.3 fL (7.6-11.3); RBC Red Blood Cell Count 4.47 M/uL (3.86-4.86)
[2020-08-13 06:19] LABS: BUN Blood Urea Nitrogen 5 mg/dL (7-18); Bicarbonate 28 mmol/L (21-32); Glucose Level 87 mg/dL (74-106); Magnesium 1.9 mg/dL (1.8-2.4); Phenytoin (Dilantin) Level 8.2 ug/mL (10.0-20.0); Phosphorus 2.7 mg/dL (2.5-4.9); Potassium 3.7 mmol/L (3.5-5.1); Sodium Level 134 mmol/L (136-145)
[2020-08-13] MEDS: ENOXAPARIN 40 MG/0.4 ML SQ SCH (09:00)
[2020-08-13] MEDS ORDERED: POTASSIUM 25 MEQ EFFERV TAB PO ONE (09:00)
[2020-08-13] MEDS: GENTAMICIN 100 MG/100 ML BAG 100 ML IV SCH ×2 (10:13→22:29)
--- NOTE | 2020-08-13 14:58 | P.PN ---
Subjective Date of Service: 08/13/20 Chief Complaint: Delirium / UTI Patient appeared confused to me today. She is oriented to person, place but not to time. She has been afebrile. Leukocytosis has resolved. Phenytoin level is now below normal limit. Physical Examination - Vital Signs Temperature: 97.6 F Blood Pressure: 182/77 Pulse: 85 Respirations: 20 Pulse Ox (%): 93 - Physical Exam General: In no apparent distress, Confused HEENT: Mucous membr. moist/pink Neck: Supple Respiratory: Clear to auscultation bilaterally, Normal air movement Cardiovascular: No edema, Regular rate/rhythm, Normal S1 S2 Gastrointestinal: Normal bowel sounds, Soft and benign, No tenderness Musculoskeletal: No swelling, No tenderness Integumentary: No rashes, No erythema Neurological: Normal strength at 5/5 x4 extr, Cranial nerves 3-12 intact, Other (Nonfocal) Assessment And Plan - Current Problems (Diagnosis) (1) Metabolic encephalopathy Current Visit: Yes Status: Acute (2) Acute cystitis without hematuria Current Visit: Yes Status: Acute (3) Dilantin toxicity Current Visit: No Status: Acute (4) Neurogenic bladder Onset Date: 11/28/17 Current Visit: No Status: Chronic (5) Seizure disorder Onset Date: 11/28/17 Current Visit: No Status: Chronic (6) Hypertension Current Visit: Yes Status: Acute - Plan Patient still remain confused. Urine culture is growing E. coli. Given patient multiple antibiotics allergies, antibiotics choice is limited to gentamicin. Leukocytosis resolved with IV gentamicin. Patient to complete 3 days of antibiotic therapy. Infectious disease consult requested. Continue hydration with IV normal saline. Resume oral phenytoin Diet as tolerated. I suspect patient has dementia and may need supervision with her medications given the Dilantin toxicity.
--- NOTE | 2020-08-13 16:40 | CON ---
History Of Present Illness: The patient is a 79-year-old female. I was consulted for urosepsis. Th e patient has history of neurogenic bladder requiring intermittent straight cath. Also has hypertens ion, seizure disorder. Came in with altered mental status and confusion for 2-3 days. The patient f eels better today. Denies any other problems. Has multiple drug allergies including nitrofurantoin, cephalexin, penicillin, tetracycline, sulfa drugs. Cephalosporin causes her to have hives. Past Medical History: As per HPI and seizure disorder, neurogenic bladder, self cath, hypertension, tonsillectomy, hysterectomy, left femur fracture, currently being treated with gentamicin. Medications: See MAR for other medications. Allergies: NITROFURANTOIN, CEPHALEXIN, PENICILLIN, TETRACYCLINE, SULFA DRUGS. Review of Systems: A 10-point review was performed. Physical Examination: General: This is a 79-year-old female, not in any acute cardiopulmonary distress. Vital Signs: Temperature 97.6, pulse 85, respirations 18, blood pressure 182/77. HEENT: Unremarkable. Neck: Supple. Lungs: Clear to auscultation. Heart: S1, S2. Regular. Abdomen: Soft. Bowel sounds present. Extremity: No edema. Laboratory Data: Shows WBC 8.9 down from 15.3, hemoglobin 14.3, platelets are 380. Chemistry shows sodium 134, potassium 3.7, chloride 99, bicarb 28, BUN 5, creatinine 0.48, glucose 87. Micro data sh ows E coli in the urine; sensitive to meropenem, cefepime, tobramycin, ceftazidime, Rocephin, gentami carlos, nitrofurantoin, and Bactrim. CT head shows no acute intracranial abnormalities. Assessment And Plan: A 79-year-old female with urosepsis, leukocytosis, improving. Currently being treated with gentamicin as the patient has multi drug allergies. If not improved, we can either try Rocephin or meropenem for 5 days. Continue current treatment. Monitor renal function as the patient is on gentamicin. We will follow the patient closely. Thank you for consult. NF/MODL Voice ID: [id number] Report ID: [id number]
[2020-08-13] MEDS ORDERED: PHENYTOIN SODIUM PO SCH (21:00)
[2020-08-13] MEDS: PHENYTOIN ER 100 MG CAP PO SCH (21:09)
[2020-08-13 22:01] LABS: Gentamicin Level, Trough 0.5 ug/mL (0-2.0)
[2020-08-14] MEDS: NA CHLORIDE 0.9% 1,000 ML IV SCH (01:35)
[2020-08-14] MEDS: ENOXAPARIN 40 MG/0.4 ML SQ SCH (08:28)
[2020-08-14] MEDS: GENTAMICIN 100 MG/100 ML BAG 100 ML IV SCH ×2 (08:28→20:18)
[2020-08-14 09:23] LABS: BUN Blood Urea Nitrogen 3 mg/dL (7-18); Bicarbonate 29 mmol/L (21-32); Glucose Level 98 mg/dL (74-106); Phosphorus 2.6 mg/dL (2.5-4.9); Potassium 3.8 mmol/L (3.5-5.1); Sodium Level 132 mmol/L (136-145)
--- NOTE | 2020-08-14 13:25 | P.PN ---
Subjective Date of Service: 08/14/20 Chief Complaint: Delirium / UTI Patient remain confused. No major changes from yesterday. Physical Examination - Vital Signs Temperature: 97.3 F Blood Pressure: 151/94 Pulse: 75 Respirations: 16 Pulse Ox (%): 97 - Physical Exam General: In no apparent distress, Confused Neck: Supple Respiratory: Clear to auscultation bilaterally Cardiovascular: No edema, Regular rate/rhythm, Normal S1 S2 Assessment And Plan - Current Problems (Diagnosis) (1) Metabolic encephalopathy Current Visit: Yes Status: Acute (2) Acute cystitis without hematuria Current Visit: Yes Status: Acute (3) Dilantin toxicity Current Visit: No Status: Acute (4) Neurogenic bladder Onset Date: 11/28/17 Current Visit: No Status: Chronic (5) Seizure disorder Onset Date: 11/28/17 Current Visit: No Status: Chronic (6) Hypertension Current Visit: Yes Status: Acute - Plan Patient remain confused. Patient should complete antibiotic treatment for UTI today Discontinue IV fluid. Oral phenytoin resumed Family request for neurology input. Consult to neurology requested. Diet as tolerated. I suspect patient has dementia and may need supervision with her medications given the Dilantin toxicity. PT to evaluate to assist with disposition.
[2020-08-14] MEDS: HYDRALAZINE HCL 20 MG/ML VIAL IV PRN (17:30)
[2020-08-14] MEDS: PHENYTOIN ER 100 MG CAP PO SCH (20:19)
--- NOTE | 2020-08-14 22:37 | CON ---
Reason For Consultation: Consultation is called because of altered mental status. History Of Present Illness: Ms. 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 She resides at [facility] in [facility] and taking care of her own medications, and again at times has had Dilantin toxicity that levels a round 33-37. The event leading up to this admission developed over at least 3 or 4 days with some wo rsening confusion and not being able to hold onto the urine because of a neurogenic bladder and requi ring straight catheterization, and she was brought in to [facility] with reported fullness in the [place] d[place] and was evaluated with a urinalysis, which showed urinary tract infection with positive nitrites , 2+ esterase, 20-50 white blood cells, and 20-50 bacteria. Her white blood cell count, overall, how ever, was slightly elevated actually only on 11 of August it was 15.3 with 85.6% neutrophils. Her procalcitonin was less than 0.05. Head CT scan was negative for any acute ischemic or hemorrhagic c hange. She was treated with hydration and gentamicin and her Dilantin blood level was drawn and foun d to be elevated to 33.8. Dilantin was held. After 3 days, Dilantin level yesterday was 8.2, and marisa south is back on Dilantin 300 mg at night, and my conversation with her, she does report episodes of conf usion and admits that time she may take extra Dilantin. Past Medical History: As indicated in addition to hypertension. Past Surgical History: Tonsillectomy, hysterectomy, left femur fracture. Allergies: NITROFURANTOIN, KEFLEX, MACROBID, PENICILLIN, TETRACYCLINES, SULFA DRUGS. Social History: She resides at [facility] In an independent living. She denies alcohol, tobacco, or I V drug use. Family History: Noncontributory. Review of Systems: She has had intermittent confusion, disorientation. The patient said her daughter believes that she needs to be in the assisted living facility, perhaps Memory Care Unit because of a possible dementia. It should be noted that I have been seeing the patient for about 7 or so years and often she is int act and fully oriented, her mini-mental status examination 3 years ago was normal, full score of 29/2 9. 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 However, she has a very forceful pe rsonality and does not get along well with her daughter, and the daughter actually wants to make deci sions for her, but at times due to the patient's capacity to make her own decisions that has not been allowed. Review of Systems: Otherwise negative. Physical Examination: Vital Signs: Blood pressure 138-182/77-101, pulse 75-85, temperature 98.6, oxygen saturation 98%, re spiratory rate 16 to 18. Weight 136 pounds, height 5 feet 3 inches, BMI 24.1. Neurologic: Ms. Boyer is lying in bed. She is alert and oriented to person, but not to the place . She is oriented to situation. She is disoriented to the year, said it is 1998, not to the o r day of the week. She does follow simple commands, but has refused to complete a mini-mental status tests. Cranial nerves show no focal deficits on through 12. Motor examination, she actually move s both upper and lower extremities equally well and voluntarily was able to do that against resistanc e with no asymmetries. Sensory exam, no asymmetries and touch, temperature of the arms and legs. Co ordination is intact in the upper and lower extremities. She will be ambulated with the physical the rapist. Assessment: Ms. Boyer is a 79-year-old patient, who has a long history of seizures and multiple a dmissions with Dilantin toxicity, who resides at independent living in [facility]. However, at [facility] she does make poor decisions and takes extra Dilantin resulting in toxicity. It is possible due t o her repeated straight catheterization, she developed urinary tract infection, which worsened cognit beverly functioning and perhaps there is a contributing factor to her Dilantin toxicity, as she may have doubled up on the medication. At this point, she likely has an acute on chronic encephalopathy with the chronic issue being a mild likely vascular dementia as there was an MRI of the brain done 3 years ago that showed moderate small-vessel ischemic disease. MRI is not done at this visit. The patient , however, is not likely to remain at this level of confusion. Once she has cleared, her acute proce sses, which is the urinary tract infection and Dilantin toxicity by approximately 1-2 weeks. At that point, while out of the hospital, she may be evaluated in clinic with [place] Cognitive Assessment test to get better evaluation of what her chronic cognitive functioning status is like. At this poin t, continue with antibiotics per the primary team. Continue with Dilantin 300 mg at night. Continue with hydration, and the patient would likely be best served at this point in an assisted living faci lity where medications can be observed and administered. She may benefit from some physical therapy as well. SOSA/LATRICIA Voice ID: [id number] Report ID: [id number]
[2020-08-15] MEDS ORDERED: POTASSIUM 25 MEQ EFFERV TAB PO ONE (09:00)
[2020-08-15] MEDS ORDERED: Meropenem 1000 MG/VIAL IV SCH (09:00)
[2020-08-15] MEDS: ENOXAPARIN 40 MG/0.4 ML SQ SCH (09:58)
[2020-08-15] MEDS: Meropenem 1,000 MG in NA CHLORIDE 0.9% 100 ML IV SCH ×2 (11:41→20:37)
--- NOTE | 2020-08-15 12:00 | P.PN ---
Subjective Date of Service: 08/15/20 Chief Complaint: Delirium / UTI Patient remain confused. No major changes from yesterday. Patient refusing blood draws. Case discussed with neurology-Dr. Lazcano. Patient has baseline neuropsychiatric or personality disorder. Dilantin toxicity and UTI may have exacerbated her baseline impaired mental status. Infectious disease input appreciated. Physical Examination - Vital Signs Temperature: 98.7 F Blood Pressure: 160/78 Pulse: 80 Respirations: 16 Pulse Ox (%): 91 - Physical Exam General: In no apparent distress, Other (Appear confused) Respiratory: Clear to auscultation bilaterally, Normal air movement Cardiovascular: No edema, Regular rate/rhythm, Normal S1 S2 Gastrointestinal: Normal bowel sounds, Soft and benign, No tenderness Musculoskeletal: No swelling Integumentary: No rashes, No erythema Neurological: Normal strength at 5/5 x4 extr, Other (Nonfocal) Assessment And Plan - Current Problems (Diagnosis) (1) Metabolic encephalopathy Current Visit: Yes Status: Acute (2) Acute cystitis without hematuria Current Visit: Yes Status: Acute (3) Dilantin toxicity Current Visit: No Status: Acute (4) Neurogenic bladder Onset Date: 11/28/17 Current Visit: No Status: Chronic (5) Seizure disorder Onset Date: 11/28/17 Current Visit: No Status: Chronic (6) Hypertension Current Visit: Yes Status: Acute - Plan Infectious disease input appreciated. 5 days of antibiotic therapy recommended. Patient is refusing blood draws making gentamicin administration difficult since the level has to be monitored. With change antibiotics to IV meropenem per ID recommendation Oral phenytoin resumed Check phenytoin level in a.m. Neurology input appreciated. Diet as tolerated. Patient may also have vascular dementia and may be experiencing dementia related delirium. Per neurology patient has resisted multiple attempts to upgrade her to supervised environment like assisted living over the years.
[2020-08-15] MEDS: PHENYTOIN ER 100 MG CAP PO SCH (20:36)
[2020-08-16 06:17] LABS: BUN Blood Urea Nitrogen 8 mg/dL (7-18); Bicarbonate 29 mmol/L (21-32); Glucose Level 91 mg/dL (74-106); Phenytoin (Dilantin) Level 6.3 ug/mL (10.0-20.0); Potassium 3.5 mmol/L (3.5-5.1); Sodium Level 126 mmol/L (136-145)
[2020-08-16] MEDS: ENOXAPARIN 40 MG/0.4 ML SQ SCH (08:40)
[2020-08-16] MEDS: Meropenem 1,000 MG in NA CHLORIDE 0.9% 100 ML IV SCH ×2 (08:40→22:17)
[2020-08-16] MEDS ORDERED: PHENYTOIN ER 100 MG CAP PO ONE (13:56)
--- NOTE | 2020-08-16 14:01 | P.PN ---
Subjective Date of Service: 08/16/20 Chief Complaint: Delirium / UTI Patient remain confused. No major complain Patient's Dilantin level remains low. Physical Examination - Vital Signs Temperature: 97.6 F Blood Pressure: 172/88 Pulse: 71 Respirations: 16 Pulse Ox (%): 99 - Physical Exam General: In no apparent distress, Confused Neck: Supple Respiratory: Clear to auscultation bilaterally, Normal air movement Cardiovascular: No edema, Regular rate/rhythm, Normal S1 S2 Gastrointestinal: Normal bowel sounds, Soft and benign, No tenderness Musculoskeletal: No swelling Integumentary: No rashes Neurological: Other (Nonfocal) - Studies Microbiology Data (last 24 hrs): 08/10/20 14:15 Blood - Blood Aerobic Blood Culture - Final No growth in 5 days. 08/10/20 14:15 Blood - Blood Anaerobic Blood Culture - Final No growth in 5 days. 08/10/20 14:30 Blood - Blood Aerobic Blood Culture - Final No growth in 5 days. 08/10/20 14:30 Blood - Blood Anaerobic Blood Culture - Final No growth in 5 days. Assessment And Plan - Current Problems (Diagnosis) (1) Metabolic encephalopathy Current Visit: Yes Status: Acute (2) Acute cystitis without hematuria Current Visit: Yes Status: Acute (3) Dilantin toxicity Current Visit: No Status: Acute (4) Neurogenic bladder Onset Date: 11/28/17 Current Visit: No Status: Chronic (5) Seizure disorder Onset Date: 11/28/17 Current Visit: No Status: Chronic (6) Hypertension Current Visit: Yes Status: Acute - Plan Infectious disease input appreciated. 5 days of antibiotic therapy recommended. Continue IV meropenem Oral phenytoin resumed but level is still low. Case discussed with Dr. Lazcano who recommended 10 milligram/kilogram loading dose. Patient is given a loading dose of phenytoin. Check phenytoin level in a.m. Diet as tolerated. Patient may also have vascular dementia and may be experiencing dementia related delirium. Per neurology patient has resisted multiple attempts to upgrade her to supervised environment like assisted living over the years. Plan is to discharge back to assisted living once her Dilantin level improved and she complete antibiotic therapy. She will need home health for some supervision with her medications. Physician Review Additional Text: Delirium Urinary tract infection, cystitis Neurogenic bladder Seizure disorder Hypertension -delirium likely secondary to urinary tract infection. -CT brain negative -denies any new medications/drugs -has multiple antibiotic allergies, will continue with ciprofloxacin -cultures obtained, will follow -if no improvement, consider obtaining MRI brain, patient's neuro exam nonfocal -swallow eval, advance diet after passing -will monitor on telemetry -intermittent straight cath as needed VTE: lovenox Code: DNR - confirmed with patient's daughter Dispo: anticipate dc back to [facility] pending resolution of delirium and cultures
[2020-08-16] MEDS: PHENYTOIN NA 100 MG/2 ML IV ONE ×2 (14:15)
[2020-08-16] MEDS ORDERED: POTASSIUM 25 MEQ EFFERV TAB PO ONE (21:00)
[2020-08-16] MEDS ORDERED: ZIPRASIDONE MESYLA 20 MG/VIAL IM PRN (21:27)
[2020-08-16] MEDS ORDERED: WATER FOR INJ,STERILE 10 ML IM PRN (21:27)
[2020-08-16] MEDS: SENOSIDES 8.6 MG TAB PO SCH (22:17)
[2020-08-16] MEDS: PHENYTOIN ER 100 MG CAP PO SCH (22:17)
[2020-08-17 07:46] LABS: BUN Blood Urea Nitrogen 5 mg/dL (7-18); Bicarbonate 30 mmol/L (21-32); Glucose Level 97 mg/dL (74-106); Potassium 3.5 mmol/L (3.5-5.1); Sodium Level 124 mmol/L (136-145)
[2020-08-17] MEDS: Meropenem 1,000 MG in NA CHLORIDE 0.9% 100 ML IV SCH ×2 (08:00→21:00)
[2020-08-17] MEDS ORDERED: POTASSIUM 25 MEQ EFFERV TAB PO ONE (08:51)
[2020-08-17] MEDS: ENOXAPARIN 40 MG/0.4 ML SQ SCH ×2 (08:58→09:00)
[2020-08-17] MEDS: SENOSIDES 8.6 MG TAB PO SCH ×3 (08:58→21:52)
[2020-08-17] MEDS: HYDRALAZINE HCL 20 MG/ML VIAL IV PRN (09:09)
[2020-08-17] MEDS ORDERED: PHENYTOIN NA 100 MG/2 ML IV ONE (14:43)
--- NOTE | 2020-08-17 14:51 | P.PN ---
Subjective Date of Service: 08/17/20 Chief Complaint: Delirium / UTI Patient remain confused. She has not developed hyponatremia and hypochloremia. She refused IV Dilantin yesterday, as a result, Dilantin level is still low Physical Examination - Vital Signs Temperature: 98.3 F Blood Pressure: 97/52 Pulse: 88 Respirations: 16 Pulse Ox (%): 95 - Physical Exam General: Confused, Other (Awake) HEENT: Mucous membr. moist/pink Neck: Supple, JVD not distended Respiratory: Clear to auscultation bilaterally, Normal air movement Cardiovascular: No edema, Regular rate/rhythm, Normal S1 S2 Gastrointestinal: Normal bowel sounds, Soft and benign, No ascites, No tenderness Musculoskeletal: No swelling Integumentary: No rashes Neurological: Normal strength at 5/5 x4 extr, Cranial nerves 3-12 intact Assessment And Plan - Current Problems (Diagnosis) (1) Metabolic encephalopathy Current Visit: Yes Status: Acute (2) Acute cystitis without hematuria Current Visit: Yes Status: Acute (3) Dilantin toxicity Current Visit: No Status: Acute (4) Neurogenic bladder Onset Date: 11/28/17 Current Visit: No Status: Chronic (5) Seizure disorder Onset Date: 11/28/17 Current Visit: No Status: Chronic (6) Hypertension Current Visit: Yes Status: Acute (7) Hypochloremia Current Visit: Yes Status: Acute - Plan Patient to complete antibiotic therapy for UTI today. Will order another loading dose IV Dilantin to be given today. Check phenytoin level in a.m. Continue home dose oral phenytoin Start normal saline to treat hyponatremia Monitor BMP Diet as tolerated. Patient may also have vascular dementia and may be experiencing dementia related delirium. Per neurology patient has resisted multiple attempts to upgrade her to [facility] pervised environment like assisted living over the years. Social service and case management making arrangements for skilled rehab placement Plan is to discharge back to assisted living once her Dilantin level improved. Physician Review Additional Text: Delirium Urinary tract infection, cystitis Neurogenic bladder Seizure disorder Hypertension -delirium likely secondary to urinary tract infection. -CT brain negative -denies any new medications/drugs -has multiple antibiotic allergies, will continue with ciprofloxacin -cultures obtained, will follow -if no improvement, consider obtaining MRI brain, patient's neuro exam nonfocal -swallow eval, advance diet after passing -will monitor on telemetry -intermittent straight cath as needed VTE: lovenox Code: DNR - confirmed with patient's daughter Dispo: anticipate dc back to [facility] pending resolution of delirium and cultures
[2020-08-17] MEDS ORDERED: NA CHLORIDE 0.9% IV ONE (15:00)
[2020-08-17] MEDS ORDERED: PHENYTOIN IV ONE (15:00)
[2020-08-17] MEDS: NA CHLORIDE 0.9% 1,000 ML IV SCH (15:00)
--- NOTE | 2020-08-17 18:58 | PN ---
Subjective: The patient is lying in bed. No new complaint. Denies any headache, nausea, vomiting, chest pain, abdominal pain, constipation, or diarrhea. Objective: Vital Signs: Temperature 98, pulse 88, respirations 16, blood pressure 97/52. Lungs: Basal crackles. Heart: S1, S2. Regular. Abdomen: Soft, nontender. Bowel sounds present. Extremities: No edema. Laboratory Data: Labs reviewed. Urine culture; E coli. Blood cultures negative. Assessment And Plan: Urinary tract infection; altered mental status, improving; acute cystitis with hematuria, improving. Continue supportive care. We will follow the patient as needed. NF/MODL Voice ID: [id number] Report ID: [id number]
[2020-08-17] MEDS ORDERED: Meropenem 1 GM/100 ML BAG ONE (21:48)
[2020-08-17] MEDS: PHENYTOIN ER 100 MG CAP PO SCH (21:51)
[2020-08-18] MEDS: NA CHLORIDE 0.9% 1,000 ML IV SCH ×2 (04:20→16:54)
[2020-08-18 05:59] LABS: Absolute Lymphocytes (CBC) 1.7 K/uL (0.7-4.9); Basophils % 0.2 % (0-1.3); Hematocrit 42.1 % (36.0-45.0); Lymphocytes % 14.7 % (15.3-44.8); MPV 9.4 fL (7.6-11.3); RBC Red Blood Cell Count 4.42 M/uL (3.86-4.86)
[2020-08-18 06:08] LABS: BUN Blood Urea Nitrogen 7 mg/dL (7-18); Bicarbonate 29 mmol/L (21-32); Glucose Level 90 mg/dL (74-106); Potassium 3.5 mmol/L (3.5-5.1); Sodium Level 126 mmol/L (136-145)
[2020-08-18] MEDS ORDERED: POTASSIUM CL SA 10 MEQ TAB PO ONE (08:13)
[2020-08-18] MEDS: Meropenem 1,000 MG in NA CHLORIDE 0.9% 100 ML IV SCH (09:00)
[2020-08-18] MEDS: SENOSIDES 8.6 MG TAB PO SCH ×2 (10:20→21:25)
[2020-08-18] MEDS: ENOXAPARIN 40 MG/0.4 ML SQ SCH (10:21)
--- NOTE | 2020-08-18 17:04 | P.PN ---
Subjective Date of Service: 08/18/20 Chief Complaint: Delirium / UTI Subjective: No new changes (feeling about the same, denies any pain/confusion, alert/oriented to self only) Review of Systems 10-point ROS is otherwise unremarkable Physical Examination - Vital Signs Temperature: 99.1 F Blood Pressure: 167/76 Pulse: 72 Respirations: 16 Pulse Ox (%): 96 - Physical Exam General: Alert, Oriented x1, Confused HEENT: Sclerae nonicteric Cardiovascular: Regular rate/rhythm Gastrointestinal: Soft and benign, No tenderness Musculoskeletal: No tenderness Neurological: Normal speech Assessment & Plan Physician Review Additional Text: Metabolic encephalopathy Acute cystitis without hematuria Dilantin toxicity Neurogenic bladder Seizure disorder Hypertension Hypochloremia Hyponatremia completed antibiotic therapy for UTI - meropenem received IV dilantin loading dose yesterday, initially refused check level in AM continue home dose of PO phenytoin started on NS for hyponatremia yesterday, IV access lost today and pt refusing further IV sticks Patient may also have vascular dementia and may be experiencing dementia related delirium. Per neurology patient has resisted multiple attempts to upgrade her to supervised environment like assisted living over the years. dilantin may be contributing to hyponatremia Social service and case management making arrangements for skilled rehab placement, possibly higher level of assistance/supervision afterwards recommend higher level of supervision given ongoing issues of dilantin toxicity / intermittent confusion / mismanagement of medications Time Spent Managing Pts Care (In Minutes): 35
[2020-08-18] MEDS ORDERED: PHENYTOIN Inj 1,000 MG in NA CHLORIDE 0.9% 100 ML IV STA (19:39)
[2020-08-18] MEDS ORDERED: PHENYTOIN ER 100 MG CAP PO ONE (20:25)
[2020-08-18] MEDS: PHENYTOIN ER 100 MG CAP PO SCH (21:28)
--- NOTE | 2020-08-18 21:57 | PN ---
Subjective: Ms. Boyer is sitting in a chair beside her bed. She has no new complaints except she would like to go back to her independent living facility and she voiced her displeasure at her daugh ter and others telling her what to do about medications and if she requires help with dispensing her own medications. She otherwise was oriented to person and place, not to the exact date, and she did follow all commands appropriately and had no complaints of pain. Denies any seizure activity and non e is reported by nursing staff. Objective: Vital Signs: Blood pressure 157/76, pulse 72, respiratory rate 16, temperature 98.1, oxy gen saturation 96%. General: As indicated, she is sitting in a chair beside the bed and she is somewhat confrontational when asked about how she did and when told that she requires supervision to take her medications appr opriately as she has had multiple admissions with Dilantin toxicity. She is against going into a fac ility such as a halfway; however, after a long discussion, she appeared to agree that is a sa fest place for her to be at least for another 2-4 weeks and after which, she should consider an [facility] with memory care unit. Laboratory Studies: Her Dilantin blood level yesterday was 5.9, after she received a total of 900 mg of Dilantin. Today, she will be given a total of 1300 mg Dilantin and the level be checked again. Her sodium level was low on the 7th to 124, today it is 126. Her serum osmolality is also low at 261 . The change in sodium is possibly related to her Dilantin load, although urine sodium will be evalu ated and actually random urine sodium was normal today at 49 and urine osmolality is normal at 402. She is also treated for urinary tract infection. Assessment: Ms. Boyer is a 79-year-old patient with multiple reasons for encephalopathy including likely mild vascular dementia in addition to urinary tract infection with toxic encephalopathy and D ilantin toxicity, which is slowly resolving. She does have a long history of taking extra Dilantin r esulting in toxicity and has had multiple hospital admissions with that. The need for supervision in terms of her medications was discussed and the patient did agree at least partially to go to a [facility] ed facility where she can receive rehabilitation for improving her transfers and mobilization and her ability to take care of herself and where she will receive direct observation of her medications and assistance with receiving her Dilantin. Plan: 1.Continue as indicated with current treatment. Once her Dilantin level is between 15 and 20, disch arge to likely halfway with the Dilantin dosage of 300 mg at night. The medication level layo uld be rechecked within 5 days of discharge. 2.Continue with DVT prophylaxis using Lovenox and she may have medications for sleep, for which at t his point I would recommend melatonin and if need be, may try trazodone. SOSA/LATRICIA Voice ID: [id number] Report ID: [id number]
[2020-08-19] MEDS: NA CHLORIDE 0.9% 1,000 ML IV SCH (07:00)
[2020-08-19] MEDS: ENOXAPARIN 40 MG/0.4 ML SQ SCH (08:14)
[2020-08-19] MEDS ORDERED: PHENYTOIN ER 100 MG CAP PO ONE (09:00)
[2020-08-19] MEDS: SENOSIDES 8.6 MG TAB PO SCH ×2 (09:00→21:00)
[2020-08-19 09:43] LABS: Absolute Lymphocytes (CBC) 0.9 K/uL (0.7-4.9); Basophils % 0.2 % (0-1.3); Hematocrit 43.9 % (36.0-45.0); Lymphocytes % 8.6 % (15.3-44.8); MPV 9.1 fL (7.6-11.3); RBC Red Blood Cell Count 4.64 M/uL (3.86-4.86)
[2020-08-19 10:09] LABS: Albumin 3.7 g/dL (3.4-5.0); Bilirubin Total 0.4 mg/dL (0.2-1.0); Potassium 3.6 mmol/L (3.5-5.1); Protein, Total 7.6 g/dL (6.4-8.2); Thyroid Stimulating Hormone 2.21 uIU/mL (0.360-3.740)
[2020-08-19 11:24] LABS: Platelet Estimate ADEQ; White Blood Cell Scan OK (OK)
[2020-08-19 11:25] LABS: Blood Morphology Comment NOT SEEN (NOT SEEN)
[2020-08-19] MEDS ORDERED: TRAZODONE 50 MG TABLET PO PRN (13:49)
[2020-08-19] MEDS: SODIUM CHLORIDE 1 GM TAB PO SCH (16:27)
--- NOTE | 2020-08-19 18:09 | PN ---
Subjective: Patient is lying in bed. No new complaints. Objective: Vital Signs: Temperature 97.5, pulse 77, respirations 18, blood pressure 130/63. Lungs: Basal crackles. Heart: S1, S2. Regular. Abdomen: Soft. Bowel sounds present. Extremities: No edema. Laboratory Data: Shows WBC 10.7, hemoglobin 14.8, platelets are 336. Chemistry shows sodium 125, po tassium 3.6, chloride 87, bicarb 29, BUN 7, creatinine 0.7, glucose 154. Urine cultures E coli. Assessment And Plan: Patient is currently being treated with empiric treatment. We will follow the patient closely. Continue supportive care. Continue hydration. NF/MODL Voice ID: [id number] Report ID: [id number]
--- NOTE | 2020-08-19 18:17 | P.PN ---
Subjective Date of Service: 08/19/20 Chief Complaint: Delirium / UTI Subjective: No new changes (Continues with confusion, refused IV access yesterday, refused IV fluids, refused lab draws this morning Patient very oppositional) Review of Systems 10-point ROS is otherwise unremarkable Physical Examination - Vital Signs Temperature: 98.8 F Blood Pressure: 145/66 Pulse: 68 Respirations: 17 Pulse Ox (%): 97 - Physical Exam General: Alert, In no apparent distress, Oriented x1, Confused HEENT: Sclerae nonicteric Respiratory: Clear to auscultation bilaterally Cardiovascular: No edema, Regular rate/rhythm Gastrointestinal: Soft and benign, No tenderness Integumentary: No rashes, No significant lesion Assessment & Plan Physician Review Additional Text: Metabolic encephalopathy Acute cystitis without hematuria Dilantin toxicity Neurogenic bladder Seizure disorder Hypertension Hypochloremia Hyponatremia completed antibiotic therapy for UTI - meropenem Refused IV Dilantin load x2, given higher doses of p.o. Dilantin yesterday and this morning continue home dose of PO phenytoin Refused IV access, refused labs initially this morning and then was agreeable, continues with hyponatremia Will start 1g salt tabs BID, pt states she will refuse CT with microvascular ischemic changes - likely with vascular dementia and may be experiencing dementia related delirium. Per neurology patient has resisted multiple attempts to upgrade her to supervised environment like assisted living over the years. dilantin may be contributing to hyponatremia will consult Psych for any further input, also with h/o depression discussed with neurology - pt refused MMSE/MOCA from physicians, will consult speech therapy for MOCA she does not seem to have decision making capacity at this time Social service and case management making arrangements for skilled rehab placement, possibly higher level of assistance/supervision afterwards recommend higher level of supervision given ongoing issues of dilantin toxicity / intermittent confusion / mismanagement of medications Time Spent Managing Pts Care (In Minutes): 45
[2020-08-19] MEDS: PHENYTOIN ER 100 MG CAP PO SCH (22:25)
[2020-08-20] MEDS: ENOXAPARIN 40 MG/0.4 ML SQ SCH (08:06)
[2020-08-20] MEDS: SODIUM CHLORIDE 1 GM TAB PO SCH (08:06)
[2020-08-20] MEDS ORDERED: FLUOXETINE 20 MG CAP PO SCH (09:00)
[2020-08-20] MEDS: SENOSIDES 8.6 MG TAB PO SCH (09:00)
[2020-08-20 11:02] LABS: BUN Blood Urea Nitrogen 6 mg/dL (7-18); Bicarbonate 30 mmol/L (21-32); Glucose Level 120 mg/dL (74-106); Potassium 3.4 mmol/L (3.5-5.1); Sodium Level 129 mmol/L (136-145)
[2020-08-20] MEDS ORDERED: POTASSIUM 25 MEQ EFFERV TAB PO ONE (11:20)
[2020-08-20 12:10] VITALS: O2SAT 90
[2020-08-20 13:28] VITALS: BP 132/75; TEMP 98.6
--- NOTE | 2020-08-20 13:37 | P.DS ---
Admission Date: 08/10/20 Discharge Date: 08/20/20 Disposition: TRANSFER TO SNF - MEDICAL Discharge Condition: FAIR Reason for Admission: Delirium / UTI Consultations: Neurology - Dr. Lazcano Psychiatry - Dr. Velasco Procedures: CT Brain (08/10): no acute intracranial abnormality is seen. L Hand x-ray (08/11): Complete or near complete bony union of the second- fourth metacarpal fractures. Alignment and position of these metacarpals appears to matches the positioning at the time of final fracture repair positioning. No finding to suggest re- fracture or new finding elsewhere in the hand. Problem List Metabolic encephalopathy due to UTI and dilantin toxicity Dementia, likely vascular Altered Mental status and loss of decision making capacity Acute cystitis without hematuria Neurogenic bladder (chronic) self straight cath's Seizure disorder Hypertension Hypochloremia Hyponatremia h/o L optic neuritis with decreased vision Brief History of Present Illness: 79-year-old female, PMH: History of prior stroke leading to neurogenic bladder requiring intermittent straight cath, hypertension, seizures [facility] status/confusion over the past 2-3 days. Patient is a poor historian. HPI obtained from ED and EMR. She reports feeling some bladder fullness, but has otherwise been herself. She denies confusion. She reports having a history of UTIs, and multiple allergies to antibiotics. In the ED, workup revealed urine grossly positive for infection. Patient does not appear septic, no leukocytosis. She was noted to have confusion and elevated dilantin level: 33.8. CT brain was negative for any acute findings. Given her ongoing confusion, I was consulted for admission. Hospital Course: Urine culture grew e.coli, due to the resistances and her allergies, ID was consulted and she was treated with IV Meropenem. Her dilantin level was noted to be elevated on admission as well. CT brain was negative for acute intracranial process, however did note small vessel disease. Neurology and Psychiatry were consulted through her hospitalization. It was felt she has advanced dementia, likely vascular dementia. Her confusion/AMS did not significantly improve despite treatment of her UTI. This could be due to the Dilantin toxicity. Neurology was familiar with the patient and she has done this before, however not improving as quickly. She initially refused MOCA/MMSE testing, but MOCA was performed on 08/19 with a score of 6/30. Patient was determined not to have decision making capacity. Her case was discussed with her medical POA - her daughter and daughter's . She is discharged to SNF to continue to monitor on her sodium and Dilantin levels, she may have improvement of her confusion - can see up to 1-2 weeks after Dilantin toxicity. She may benefit from further supervision / assisted living / memory unit. By problem: UTI - grew e.coli, treated with Merropenem x 5 days per ID Recommendations AMS/Confusion - advanced dementia, likely vascular. complicated by dilantin toxicity and UTI. Possible to have some improvement over the next 1-2 weeks after dilantin levels improved. Hyponatremia - developed hyponatremia to 126 on 08/16. She initially was given IV normal saline, however refused IV fluids, IV access was lost, and she refused IV placement as well. She was given NaCL tablets on 08/19 and had improvement to 129. This was felt possibly due to dilantin. She appeared euvolemic. Vital Signs/Physical Exam: Temp Pulse Resp BP Pulse Ox 98.6 F 88 18 132/75 94 08/20/20 12:00 08/20/20 12:00 08/20/20 12:00 08/20/20 12:00 08/20/20 12:00 General: Alert, In no apparent distress, Oriented x2, Confused HEENT: Sclerae nonicteric Respiratory: Clear to auscultation bilaterally, Normal air movement Cardiovascular: No edema, Regular rate/rhythm Gastrointestinal: Soft and benign, No tenderness Musculoskeletal: No tenderness Integumentary: No rashes, No significant lesion Neurological: Normal speech, Other (oppositional, sarcastic, and difficult at times, with intermittent refusal of treatment), Dementia Laboratory Data at Discharge: WBC 10.7 K/uL (4.3-10.9) 08/19/20 09:28 Hgb 14.8 g/dL (12.0-15.0) 08/19/20 09:28 Hct 43.9 % (36.0-45.0) 08/19/20 09:28 Plt Count 336 K/uL (152-406) 08/19/20 09:28 Sodium 129 mmol/L (136-145) L 08/20/20 10:06 Potassium 3.4 mmol/L (3.5-5.1) L 08/20/20 10:06 BUN 6 mg/dL (7-18) L 08/20/20 10:06 Creatinine 0.55 mg/dL (0.55-1.3) 08/20/20 10:06 Glucose 120 mg/dL (74-106) H 08/20/20 10:06 Phosphorus 2.6 mg/dL (2.5-4.9) 08/14/20 08:19 Magnesium 2.0 mg/dL (1.8-2.4) 08/19/20 09:28 Total Bilirubin 0.4 mg/dL (0.2-1.0) 08/19/20 09:28 AST 17 U/L (15-37) 08/19/20 09:28 ALT 19 U/L (12-78) 08/19/20 09:28 Alkaline Phosphatase 115 U/L (45-117) 08/19/20 09:28 Home Medications: Estradiol Vaginal Cream 1 oswaldo TOP DAILY 08/11/20 RX: PHENYTOIN ER Cap [Dilantin ER Cap*] 3 cap PO BEDTIME 08/11/20 Fluoxetine HCl [Prozac] 20 mg PO DAILY 30 Days #30 capsule 08/20/20 RX: Sodium Chloride Tab [Sodium Chloride*] 1 gm PO BIDWM 14 Days #28 tab 08/20/20 RX: Trazodone [Desyrel*] 50 mg PO BEDTIME PRN PRN 30 Days #30 tablet 08/20/20 New Medications: RX: Trazodone [Desyrel*] 50 mg PO BEDTIME PRN PRN 30 Days #30 tablet PRN Reason: Insomnia Fluoxetine HCl [Prozac] 20 mg PO DAILY 30 Days #30 capsule RX: Sodium Chloride Tab [Sodium Chloride*] 1 gm PO BIDWM 14 Days #28 tab Patient Discharge Instructions: Discharged to SNF. you completed your treatment for UTI. Continue home dose of dilantin (300mg at night), and you will start taking sodium (salt tabs) twice a day. You will need to have your sodium checked in the next 1-2 days to ensure it continues to improve. You will need to have a dilantin level checked this coming Monday (08/24). Call Dr. Lazcano's office to schedule a telehealth visit in the next 1-2 weeks as well. Diet: AHA Activity: Fall precautions Followup: Efrain Lazcano MD [ASSOCIATE-ACTIVE - CAN ADMIT] - (1-2 weeks call to schedule appointment) Unknown,U [Primary Care Provider] - Time spent managing pt's care (in minutes): 45
--- NOTE | 2020-09-07 06:00 | CON ---
Date of Consultation: 08/18/2020 History Of Present Illness: Psychiatrist consulted to evaluate patient for depression and recommend medication treatment. Patient is a 79-year-old female admitted to the unit on July 13, 2020, for altered mental status. She also had UTI and hyponatremia. Patient has psychiatric history significant for depressive disorder, paranoid delusion per sister for which she was treated by a Psychiatrist for many years with psychotropics. Patient was uncooperative during this evaluation. She was was very guarded, it was however obvious she is still disoriented as she thinks she is attending an invent with her in a hotel. She admits to being depressed mainly as a result of not. Denies suicidal and homicidal ideation. No past history of suicide attempt. Patient is currently a resident of [facility] from where she was transferred to the ER. Patient reports having difficulties sleeping at night. Physical Examination: General: Patient is a well-nourished female, dressed in hospital attire. Not in any obvious acute distress. HEENT: Atraumatic, normocephalic, PERRLA, EOMI. MENTAL STATUS EXAMINATION: She is very guarded and superficially cooperative, she made poor eye contact. Speech was spontaneous, normal in rate, rhythm, and volume. No preservation observed. She was alert, oriented to person only. Memory and concentration are poor. Mood described as depressed. Affect mood congruent. Thought content and thought process is mostly circumstantial and tangential. Thought content, no suicidal thoughts. No rumination or obsession. No auditory or visual hallucinations. Patient is not internally preoccupied. Insight, judgment, impulse control are impaired. Fund of knowledge average. Language skills fair. Assessment: A 79-year-old female with a past psychiatric history of depressive disorder and Delusional disorder, admitted for altered mental statu with urinary tract infection and hyponatremia. She also has a history of seizure disorder. She currently exhibits of a depressive disorder such as dysphoric mood, with poor sleep but no suicidal or homicidal ideation. 1. Delirium 2. Depressive disorder, unspecified. 3. Anxiety disorder unspecified 4. Delusional disorder per history. Plan: 1. Recommend Venlafaxine 37.5 mg PO daily for depression. 2. Recommend Trazodone 50 mg p.r.n. for sleep. 3. Recommend Treatment team to continue management of patient's delirium 4. Recommend social work to assist with discharge planing Discussed treatment recommendation with treatment team. MUKESH/LATRICIA Voice ID: [id number] Report ID: [id number] MTDD
== END 2020-08-20 14:57 | DRG 917 ==
LOC: ER 14:02 → ERHOLD 16:00 → 2ND 08-11 22:50
PROVIDERS: ADMIT Hospitalist; ATTEND Hospitalist
DX: T42.0X1A Poisoning by hydantoin derivatives, accidental (unintentional), initial encounter (principal); G92 Toxic encephalopathy; E87.1 Hypo-osmolality and hyponatremia; N30.01 Acute cystitis with hematuria; I10 Essential (primary) hypertension; J44.9 Chronic obstructive pulmonary disease, unspecified; F01.50 Vascular dementia, unspecified severity, without behavioral disturbance, psychotic disturbance, mood disturbance, and anxiety; E87.8 Other disorders of electrolyte and fluid balance, not elsewhere classified; N31.9 Neuromuscular dysfunction of bladder, unspecified; B96.20 Unspecified Escherichia coli [E. coli] as the cause of diseases classified elsewhere; Z88.0 Allergy status to penicillin; Z88.1 Allergy status to other antibiotic agents; Z86.73 Personal history of transient ischemic attack (TIA), and cerebral infarction without residual deficits; Z66 Do not resuscitate; Z79.899 Other long term (current) drug therapy; Z90.710 Acquired absence of both cervix and uterus; Z20.828 Contact with and (suspected) exposure to other viral communicable diseases
CPT/HCPCS: 36415; 51702; 70450; 80048; 80053; 80170; 80185; 81003; 81015; 82565; 83735; 83930; 83935; 84100; 84145; 84300; 84439; 84443; 85025; 87040; 87077; 87086; 87088; 87186; 92523; 93005; 94760; 96365; 97116; 97161; 97165; 97530; 99285; J0360; J0744; J1165; J1580; J1650; J2185; J2930; J3486; J7030; J7040; U0002; U0003

== ENCOUNTER 2021-03-08 19:35 | Inpatient (IN) | payer OTHER, SELFPAY ==
[2021-03-08 20:38] LABS: Absolute Lymphocytes (CBC) 1.9 K/uL (0.7-4.9); Basophils % 0.3 % (0-1.3); Lymphocytes % 12.1 % (15.3-44.8); MPV 6.8 fL (7.6-11.3); RBC Red Blood Cell Count 4.31 M/uL (3.86-4.86)
[2021-03-08 20:58] LABS: ALT/SGPT 11 U/L (12-78); AST/SGOT 12 U/L (15-37); Albumin 3.2 g/dL (3.4-5.0); Alkaline Phosphatase 91 U/L (45-117); BUN Blood Urea Nitrogen 11 mg/dL (7-18); Bicarbonate 29 mmol/L (21-32); Bilirubin Direct < 0.1 mg/dL (0-0.2); Bilirubin Total 0.2 mg/dL (0.2-1.0); Glucose Level 108 mg/dL (74-106); Magnesium 2.3 mg/dL (1.8-2.4); NT PRO-BNP 4068 pg/mL (<450); Potassium 4.8 mmol/L (3.5-5.1); Protein, Total 7.6 g/dL (6.4-8.2); Sodium Level 125 mmol/L (136-145); Troponin (Emerg Dept Use Only) 0.44 ng/mL (0.0-0.045)
[2021-03-08 21:01] LABS: Protime INR 1.04
--- NOTE | 2021-03-08 21:17 | RAD REPORT ---
EXAM DESCRIPTION: RAD - Chest Single View - 03/08/2021 8:50 pm CLINICAL HISTORY: hypoxia COMPARISON: June 2020 TECHNIQUE: AP portable chest image was obtained 03/08/2021 8:50 pm . FINDINGS: Underlying fibrotic changes present in this patient. There is significant interstitial and alveolar opacification in the mid and lower right lung field. Findings are increased in the left norman g field to a lesser extent. Cardiac silhouette is enlarged. Vascular engorgement is present. No measu rable pleural effusion and no pneumothorax. No acute bony abnormality seen. No acute aortic findings suspected. IMPRESSION: Patient has extensive interstitial and alveolar opacities present in the right lung fiel d far more prominent than seen on the left. Findings would favor pneumonia over asymmetric failure/ volume overload pattern. Patient could have a pneumonia and concurrent failure/volume overload.
[2021-03-08 21:22] LABS: Arterial Blood Carboxyhemoglob 1.8 % (0-1.5); Blood Gas Oxyhemoglobin 89.5 % (94-97); Blood O2 Saturation 91.9 % (92-98.5)
[2021-03-08 22:00] LABS: Blood Morphology Comment NOTED (NOT SEEN); Platelet Estimate ADEQ; Polychromasia SLIGHT
[2021-03-08 22:44] LABS: Urine Blood Trace-intact (Negative); Urine Glucose Negative (Negative); Urine Protein Negative (Negative); Urine Specific Gravity 1.015 (1.005-1.030); Urine pH 7.5 (5.0-7.0)
--- NOTE | 2021-03-08 23:56 | EDPHYS ---
Physician Documentation [facility] Name: Joleen Boyer Age: 80 yrs Sex: Female : 1940 Arrival Date: 03/08/2021 Time: 19:46 Bed 3 Private MD: ED Physician Surjit Fournier HPI: 03/08 20:10 This 80 yrs old Female presents to ER via EMS with complaints of Altered pkl Mental Status. 20:10 Patient brought in by Ambulance with complaints of low O2 saturations ( low 70% ). pkl Onset: The symptoms/episode began/occurred today. The patient has not experienced similar symptoms in the past. Historical: - Allergies: 19:52 Cephalexin Monohydrate; ad5 19:52 Keflex; ad5 19:52 Nitrofurantoin; ad5 19:52 Nitrofurantoin Macrocrystal; ad5 19:52 Sulfa (Sulfonamide Antibiotics); ad5 19:52 PENICILLINS; ad5 19:52 Tetracycline; ad5 - PMHx: 19:52 COPD; Depression; Hypertension; macular degeneration; stroke; neuromuscular dysfunction ad5 of bladder; epilepsy; Dementia; insomnia; - Immunization history:: Adult Immunizations unknown. - Social history:: Smoking status: Patient/guardian denies using tobacco, but has a distant history of tobacco abuse. ROS: 20:10 Eyes: Negative for injury, pain, redness, and discharge, ENT: Negative for injury, pkl pain, and discharge, Neck: Negative for injury, pain, and swelling, Cardiovascular: Negative for chest pain, palpitations, and edema, Respiratory: Negative for shortness of breath, cough, wheezing, and pleuritic chest pain, Abdomen/GI: Negative for abdominal pain, nausea, vomiting, diarrhea, and constipation, Back: Negative for injury and pain, : Negative for injury, bleeding, discharge, and swelling, MS/Extremity: Negative for injury and deformity, Skin: Negative for injury, rash, and discoloration. 20:10 Neuro: Positive for drowsy. Exam: 20:10 Head/Face: Normocephalic, atraumatic. Eyes: Pupils equal round and reactive to light, pkl extra-ocular motions intact. Lids and lashes normal. Conjunctiva and sclera are non-icteric and not injected. Cornea within normal limits. Periorbital areas with no swelling, redness, or edema. ENT: Nares patent. No nasal discharge, no septal abnormalities noted. Tympanic membranes are normal and external auditory canals are clear. Oropharynx with no redness, swelling, or masses, exudates, or evidence of obstruction, uvula midline. Mucous membranes moist. Neck: Trachea midline, no thyromegaly or masses palpated, and no cervical lymphadenopathy. Supple, full range of motion without nuchal rigidity, or vertebral point tenderness. No Meningismus. Chest/axilla: Normal chest wall appearance and motion. Nontender with no deformity. No lesions are appreciated. Cardiovascular: Regular rate and rhythm with a normal S1 and S2. No gallops, murmurs, or rubs. Normal PMI, no JVD. No pulse deficits. Respiratory: Lungs have equal breath sounds bilaterally, clear to auscultation and percussion. No rales, rhonchi or wheezes noted. No increased work of breathing, no retractions or nasal flaring. Abdomen/GI: Soft, non-tender, with normal bowel sounds. No distension or tympany. No guarding or rebound. No evidence of tenderness throughout. Back: No spinal tenderness. No costovertebral tenderness. Full range of motion. Skin: Warm, dry with normal turgor. Normal color with no rashes, no lesions, and no evidence of cellulitis. MS/ Extremity: Pulses equal, no cyanosis. Neurovascular intact. Full, normal range of motion. Neuro: Awake and alert, GCS 15, oriented to person, place, time, and situation. Cranial nerves II-XII grossly intact. Motor strength 5/5 in all extremities. Sensory grossly intact. Cerebellar exam normal. Normal gait. Vital Signs: 19:47 BP 178 / 84; Pulse 77; Resp 18 S; Temp 98.1; Pulse Ox 89% on 2 lpm NC; Weight 58.97 kg; ad5 Height 5 ft. 4 in. (162.56 cm); Pain 0/10; 20:42 Pulse 81; Resp 16 S; Pulse Ox 92% on NC; ad5 21:26 BP 174 / 97; Pulse 74; Resp 16 S; Pulse Ox 93% on NC; ad5 23:06 BP 179 / 89; Pulse 79; Resp 20 S; Pulse Ox 92% on NC; ad5 19:47 Body Mass Index 22.31 (58.97 kg, 162.56 cm) ad5 MDM: 19:53 Patient medically screened. pkl 23:51 Data reviewed: vital signs, nurses notes, lab test result(s), EKG, radiologic studies, pkl CT scan, plain films. ED course: Talked to Claude ALDRICH ) Admit to Dr. Vargas. 03/08 20:08 Order name: Basic Metabolic Panel pkl 03/08 20:08 Order name: CBC with Diff; Complete Time: 23:24 pkl 03/08 20:08 Order name: LFT's; Complete Time: 21:13 pkl 03/08 20:08 Order name: Magnesium; Complete Time: 21:13 pkl 03/08 20:08 Order name: NT PRO-BNP; Complete Time: 21:13 pkl 03/08 20:08 Order name: PT-INR; Complete Time: 21:13 pkl 03/08 20:08 Order name: Troponin (emerg Dept Use Only); Complete Time: 21:13 pkl 03/08 20:08 Order name: D-Dimer; Complete Time: 21:13 pkl 03/08 20:08 Order name: ABG; Complete Time: 23:24 pkl 03/08 20:08 Order name: Basic Metabolic Panel; Complete Time: 21:13 EDMS 03/08 20:43 Order name: Manual Differential; Complete Time: 23:24 EDMS 03/08 22:04 Order name: SARS-COV-2 RT PCR; Complete Time: 23:24 EDMS 03/08 22:44 Order name: Urine Dipstick-Ancillary; Complete Time: 23:24 EDMS 03/08 20:08 Order name: XRAY Chest (1 view); Complete Time: 21:19 pkl 03/08 20:08 Order name: EKG; Complete Time: 20:09 pkl 03/08 20:08 Order name: Cardiac monitoring; Complete Time: 20:42 pkl 03/08 20:08 Order name: EKG - Nurse/Tech; Complete Time: 20:24 pkl 03/08 20:08 Order name: IV Saline Lock; Complete Time: 20:42 pkl 03/08 20:08 Order name: Labs collected and sent; Complete Time: 20:24 pkl 03/08 20:08 Order name: O2 Per Protocol; Complete Time: 20:24 pk 03/08 20:08 Order name: O2 Sat Monitoring; Complete Time: 20:24 pkl 03/08 21:18 Order name: CT Chest For PE Angio pkl Administered Medications: 21:49 Drug: NS 0.9% 1000 ml Route: IV; Rate: 100 ml/hr; Site: left antecubital; ea 03/09 00:23 Drug: HALdol (as decanoate) 5 mg Route: IM; Site: right deltoid; ea Disposition: 03/08/21 23:55 Hospitalization ordered by Zena Vargas for Inpatient Admission. Diagnosis is Hypoxia. Elevated Troponin. Hyponatremia. - Bed requested for Telemetry/MedSurg (Inpatient). - Status is Inpatient Admission. ea - Condition is Stable. - Problem is new. - Symptoms are unchanged. Signatures: Dispatcher [employer] EDMN Surjit Fournier MD MD Julio Sullivan, RN RN Cherri Duarte RN RN Sushant Espinal Corrections: (The following items were deleted from the chart) 03/08 20:44 20:10 CORONAVIRUS+MR.LAB.BRZ ordered. [facility] 03/09 00:28 03/08 23:55 Hospitalization Ordered by Zena Vargas MD for Inpatient Admission. em Preliminary diagnosis is Hypoxia. Elevated Troponin. Hyponatremia. Bed requested for Telemetry/MedSurg (Inpatient). Status is Inpatient Admission. Condition is Stable. Problem is new. Symptoms are unchanged. pkl 03/09 00:33 00:28 03/08/2021 23:55 Hospitalization Ordered by Zena Vargas MD for Inpatient ea Admission. Preliminary diagnosis is Hypoxia. Elevated Troponin. Hyponatremia. Bed requested for Telemetry/MedSurg (Inpatient). Status is Inpatient Admission. Condition is Stable. Problem is new. Symptoms are unchanged. em
--- NOTE | 2021-03-08 23:56 | ER ---
Nurse's Notes [facility] Name: Joleen Boyer Age: 80 yrs Sex: Female : 1940 Arrival Date: 03/08/2021 Time: 19:46 Bed 3 Private MD: Diagnosis: Hypoxia. Elevated Troponin. Hyponatremia Presentation: 03/08 19:47 Chief complaint: EMS states: Pt BIB EMS from [facility] for c/o "drowsy" and low O2 ad5 sats. Pt on RA at baseline, hx of absent seizures per EMS and on memory care unit at facility. Pt reports "sleep a lot since I was a teenager". Pt denies any c/o upon arrival to ED. O2 sat noted to be in 70s on RA, placed on O2 via NC with noted improvement. Pt A\\T\\O x 2 at baseline per EMS. Coronavirus screen: Client presents with at least one sign or symptom that may indicate coronavirus-19. Ebola Screen: No symptoms or risks identified at this time. Initial Sepsis Screen: Does the patient meet any 2 criteria? Altered Mental Status. Does the patient have a suspected source of infection? No. Patient's initial sepsis screen is negative. Risk Assessment: Do you want to hurt yourself or someone else? Patient reports no desire to harm self or others. Onset of symptoms is unknown. 19:47 Method Of Arrival: EMS ad5 19:47 Acuity: YORDY 2 ad5 Triage Assessment: 19:53 General: Appears in no apparent distress. Behavior is calm, cooperative, appropriate ad5 for age. Pain: Denies pain. Neuro: Level of Consciousness is awake, alert, obeys commands, confused, Oriented to person, Lens Gauger are equal bilaterally Speech is normal, Facial symmetry appears normal, Pupils are PERRLA, Intact. Cardiovascular: No deficits noted. Heart tones S1 S2 present Capillary refill < 3 seconds Patient's skin is warm and dry. Respiratory: Airway is patent Respiratory effort is even, unlabored, Respiratory pattern is regular, symmetrical, Breath sounds with crackles bilaterally. Historical: - Allergies: 19:52 Cephalexin Monohydrate; ad5 19:52 Keflex; ad5 19:52 Nitrofurantoin; ad5 19:52 Nitrofurantoin Macrocrystal; ad5 19:52 Sulfa (Sulfonamide Antibiotics); ad5 19:52 PENICILLINS; ad5 19:52 Tetracycline; ad5 - PMHx: 19:52 COPD; Depression; Hypertension; macular degeneration; stroke; neuromuscular dysfunction ad5 of bladder; epilepsy; Dementia; insomnia; - Immunization history:: Adult Immunizations unknown. - Social history:: Smoking status: Patient/guardian denies using tobacco, but has a distant history of tobacco abuse. Screenin:57 Abuse screen: Denies threats or abuse. Denies injuries from another. Nutritional ad5 screening: No deficits noted. Tuberculosis screening: No symptoms or risk factors identified. Fall Risk No fall in past 12 months (0 pts). Secondary diagnosis (15 points) IV access (20 points). Ambulatory Aid- None/Bed Rest/Nurse Assist (0 pts). Gait- Weak (10 pts.). Mental Status- Overestimates/Forgets Limitations (15 pts.). Total Fowler Fall Scale indicates High Risk Score (45 or more points). Fall prevention measures have been instituted. Side Rails Up X 2 Placed Close to Nursing Station Frequent Obs/Assessments Occuring As available patient and family educated on Fall Prevention Program and Strategies. 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 Pt with O2 sat noted ad5 to be in 70s upon arrival to ED room 3. Pt placed on O2 via NC at 3L at this time with improvement in O2 sat to 90%. Pt lungs with fine crackles lynda to auscultation. Pt denies SOB, cough, or any related c/o. General: Appears in no apparent distress. Behavior is calm, cooperative, appropriate for age. Pain: Denies pain. Neuro: Level of Consciousness is awake, alert, obeys commands, Oriented to person, Lens Gauger are equal bilaterally Moves all extremities. Speech is normal, Facial symmetry appears normal, Pupils are PERRLA, Intact. Cardiovascular: No deficits noted. Heart tones S1 S2 present Capillary refill < 3 seconds Patient's skin is warm and dry. Rhythm is regular. Respiratory: Airway is patent Respiratory effort is even, unlabored, Respiratory pattern is regular, symmetrical, Breath sounds with crackles bilaterally. GI: No deficits noted. No signs and/or symptoms were reported involving the gastrointestinal system. : No deficits noted. No signs and/or symptoms were reported regarding the genitourinary system. Derm: Skin is pink, warm \\T\\ dry. Musculoskeletal: No deficits noted. No signs and/or symptoms reported regarding the musculoskeletal system. 20:20 Reassessment: Pt up to restroom via wheelchair. Unable to obtain urine specimen at this ad5 time. Pt with slow gait noted, standby assist with RN x 1. Pt repositioned back into stretcher in room 3 for comfort. Bed remains low and locked, bedrails x 2, call light within reach. Serum labs and EKG obtained at this time. Pt VS remain stable. NAD noted, will continue to monitor. 21:26 Reassessment: Patient appears in no apparent distress at this time. No changes from ad5 previously documented assessment. Patient and/or family updated on plan of care and expected duration. Pain level reassessed. 22:30 Reassessment: Patient appears in no apparent distress at this time. Patient and/or ad5 family updated on plan of care and expected duration. Pain level reassessed. Pt up to bsc, repositioned back into stretcher for comfort. Bed remains low and locked, bedrails x 2, call light within reach. Pt denies other needs or c/o. Will continue to monitor. 03/09 00:27 Reassessment: Patient and/or family updated on plan of care and expected duration. Pain ea level reassessed. Pt alert and oriented to self. Respirations even and unlabored. Chest expansions even and symmetrical. Denies pain at this time. Vital Signs: 03/08 19:47 BP 178 / 84; Pulse 77; Resp 18 S; Temp 98.1; Pulse Ox 89% on 2 lpm NC; Weight 58.97 kg; ad5 Height 5 ft. 4 in. (162.56 cm); Pain 0/10; 20:42 Pulse 81; Resp 16 S; Pulse Ox 92% on NC; ad5 21:26 BP 174 / 97; Pulse 74; Resp 16 S; Pulse Ox 93% on NC; ad5 23:06 BP 179 / 89; Pulse 79; Resp 20 S; Pulse Ox 92% on NC; ad5 19:47 Body Mass Index 22.31 (58.97 kg, 162.56 cm) ad5 ED Course: 19:46 Patient arrived in ED. ad5 19:50 Triage completed. ad5 19:53 Surjit Fournier MD is Attending Physician. pkl 19:54 Arm band placed on. ad5 19:55 Sushant Yoder is Primary Nurse. ad5 19:58 Patient has correct armband on for positive identification. Placed in gown. Bed in low ad5 position. Call light in reach. Side rails up X2. monitoring specialist on. Pulse ox on. NIBP on. Door closed. Noise minimized. Warm blanket given. Head of bed elevated. 20:42 Initial lab(s) drawn, by me, sent to lab. EKG done, by ED staff, reviewed by Surjit Fournier MD ad5 COVID swab sent to lab. Inserted saline lock: 20 gauge in left antecubital area, using aseptic technique. Blood collected. 20:50 XRAY Chest (1 view) In Process Unspecified. EDMS 22:04 CT Chest For PE Angio In Process Unspecified. EDMS 23:53 Zena Vargas MD is Hospitalizing Provider. pkl 03/09 00:28 No provider procedures requiring assistance completed. Patient admitted, IV remains in ea place. Administered Medications: 03/08 21:49 Drug: NS 0.9% 1000 ml Route: IV; Rate: 100 ml/hr; Site: left antecubital; ea 03/09 00:23 Drug: HALdol (as decanoate) 5 mg Route: IM; Site: right deltoid; ea Outcome: 03/08 23:55 Decision to Hospitalize by Provider. pkl 03/09 00:30 Admitted to Med/surg accompanied by nurse, via wheelchair, with chart. ea Condition: stable Instructed on the need for admit, Demonstrated understanding of instructions. 00:33 Patient left the ED. ea Signatures: Dispatcher [employer] EDSurjit Cox MD MD pkl Antunez, Elena, RN RN Sushant Espinal ad5 Corrections: (The following items were deleted from the chart) 03/08 19:51 19:47 Chief complaint: EMS states: Pt BIB EMS from [facility] for c/o "drowsy" and ad5 low O2 sats. Pt on RA at baseline, hx of absent seizures per EMS and on memory care unit at facility. Pt reports "sleep a lot since I was a teenager". Pt denies any c/o upon arrival to ED. O2 sat noted to be in 70s on RA, placed on O2 via NC with noted improvement ad5
[2021-03-09] MEDS ORDERED: HALOPERIDOL LACT 5 MG/ML INJ ONE (00:41)
[2021-03-09] MEDS ORDERED: TRAZODONE 50 MG TABLET PO PRN ×2 (01:59→17:55)
[2021-03-09] MEDS ORDERED: ONDANSETRON 4 MG/2 ML VIAL IV PRN (01:59)
[2021-03-09] MEDS ORDERED: ALBUTEROL 2.5 MG/3 ML NEB SOL NEB PRN (01:59)
[2021-03-09] MEDS ORDERED: ACETAMINOPHEN 500 MG TAB PO PRN (01:59)
[2021-03-09] MEDS: NA CHLORIDE 0.9% 1,000 ML IV SCH ×2 (02:34→18:22)
[2021-03-09] MEDS: PHENYTOIN ER 100 MG CAP PO SCH ×2 (02:35→20:49)
[2021-03-09] MEDS: Levofloxacin 750mg IV 750 MG/150 ML BAG IV SCH (02:35)
[2021-03-09 03:27] VITALS: BMI 21.6
[2021-03-09 03:30] LABS: Absolute Lymphocytes (CBC) 1.5 K/uL (0.7-4.9); Basophils % 0.5 % (0-1.3); Hematocrit 40.2 % (36.0-45.0); Lymphocytes % 11.6 % (15.3-44.8); MPV 7.4 fL (7.6-11.3); RBC Red Blood Cell Count 4.34 M/uL (3.86-4.86)
[2021-03-09 03:49] LABS: ALT/SGPT 12 U/L (12-78); AST/SGOT 11 U/L (15-37); Albumin 3.3 g/dL (3.4-5.0); Alkaline Phosphatase 89 U/L (45-117); BUN Blood Urea Nitrogen 7 mg/dL (7-18); Bicarbonate 33 mmol/L (21-32); Bilirubin Total 0.3 mg/dL (0.2-1.0); Glucose Level 98 mg/dL (74-106); HDL Cholesterol 62 mg/dL (40-60); LDL Cholesterol, Calculated 145 (<130); Magnesium 2.3 mg/dL (1.8-2.4); Phosphorus 3.2 mg/dL (2.5-4.9); Potassium 4.7 mmol/L (3.5-5.1); Protein, Total 7.8 g/dL (6.4-8.2); Sodium Level 129 mmol/L (136-145); Troponin I 0.38 ng/mL (0.0-0.045)
[2021-03-09 04:13] LABS: Urine Appearance CLEAR (Clear); Urine Bilirubin NEGATIVE (Negative); Urine Blood NEGATIVE (Negative); Urine Color YELLOW (Yellow); Urine Glucose NEGATIVE (Negative); Urine Protein NEGATIVE (Negative); Urine Urobilinogen 0.2 mg/dL (0.2-1.0); Urine pH 7.5 (5.0-7.0)
[2021-03-09 04:23] LABS: Urine Microscopic Reflex NO UMIC
[2021-03-09 05:00] LABS: Phenytoin (Dilantin) Level 6.2 ug/mL (10.0-20.0); Valproic Acid (Depakene) Level 47.8 ug/mL (50-100)
--- NOTE | 2021-03-09 05:02 | P.HP ---
Certification for Inpatient Patient admitted to: Inpatient With expected LOS: >2 Midnights Patient will require the following post-hospital care: None Practitioner: I am a practitioner with admitting privileges, knowledge of patient current condition, hospital course, and medical plan of care. Services: Services provided to patient in accordance with Admission requirements found in Title 42 Section 412.3 of the Code of Federal Regulations <Claude Hill - Last Filed: 03/09/21 05:03> Patient History Date of Service: 03/09/21 Reason for admission: hypoxia History of Present Illness: Ms. Boyer is a 80 yo F with dementia, epilepsy [facility] and drowsiness. Placed on NC, sats 93%. Denies cough, wheezing, chest pain. WBC 15.5. Ddimer 3916. Na 125 Cl 92. Trop 0.44. BNP 4068. CXR favors pneumonia over volume overload. CT scan negative for pulmonary embolism. - Past Medical/Surgical History Has patient received pneumonia vaccine in the past: No Diabetic: No -: Seizure disorder -: Neurogenic bladder -: Patient self caths -: Hypertension -: dementia -: tonsillectomy -: hysterectomy -: left femur fx Psychosocial/ Personal History: The patient is a . She has 2 children. She is living in a prison - Family History Family History: Reviewed- Non-Contributory - Social History Smoking Status: Former smoker Alcohol use: No CD- Drugs: No Caffeine use: Yes [facility] <Claude Hill Bridget - Last Filed: 03/09/21 05:03> Date of Service: 03/09/21 <Zena Vargas - Last Filed: 03/15/21 01:56> Allergies nitrofurantoin macrocrystal [From Macrobid] Allergy (Severe, Verified 07/07/20 11:11) Itching/Hives/Rash cephalexin monohydrate [From Keflex] Allergy (Verified 07/07/20 11:11) Hives nitrofurantoin [From Macrobid] Allergy (Verified 07/07/20 11:11) Unknown Penicillins Allergy (Verified 07/07/20 11:11) Hives tetracycline [Tetracycline] Allergy (Verified 07/07/20 11:11) Hives Sulfa (Sulfonamid Allergy (Uncoded 11/28/17 02:38) Unknown tetracycline Allergy (Uncoded 11/28/17 02:37) Unknown Home Medications: RX: Fluoxetine HCl [Prozac] 20 mg PO DAILY 30 Days #30 capsule 08/20/20 RX: Sodium Chloride Tab [Sodium Chloride*] 1 gm PO BIDWM 14 Days #28 tab 08/20/20 RX: Trazodone [Desyrel*] 50 mg PO BEDTIME PRN PRN 30 Days #30 tablet 08/20/20 Magnesium Hydroxide [Milk of Magnesia] 5 ml PO Q8HP PRN 03/09/21 RX: Acetaminophen [Tylenol Arthritis] 650 mg PO Q8HP PRN 03/09/21 RX: Divalproex [Depakote Sprinkle*] 240 mg PO TID 03/09/21 RX: Estradiol [Estrace] 1 appl VG DAILY 03/09/21 RX: Famotidine [Pepcid*] 20 mg PO DAILYPRN PRN 03/09/21 RX: Loratadine [Claritin*] 10 mg PO DAILY 03/09/21 RX: Phenytoin Sodium Extended [Phenytek] 300 mg PO BEDTIME 03/09/21 RX: levETIRAcetam [Levetiracetam] 500 mg PO BID 03/09/21 Furosemide [Lasix] 20 mg PO DAILY #30 tab 03/14/21 RX: Albuterol Neb [Proventil 0.083% Neb Soln] 2.5 mg NEB T9HBSYL #30 amp 03/14/21 RX: Losartan Potassium [Cozaar*] 50 mg PO DAILY #30 tablet 03/14/21 RX: Metoprolol Tartrate [Lopressor*] 25 mg PO BID 6AM 6PM #60 tab 03/14/21 RX: Sodium Chloride Tab [Sodium Chloride*] 2 gm PO BIDWM #60 tab 03/14/21 RX: Spironolactone [Aldactone*] 25 mg PO DAILY #30 tab 03/14/21 RX: predniSONE [Prednisone*] 20 mg PO BID #11 tab 03/14/21 levoFLOXacin [Levaquin] 500 mg PO DAILY #5 tab 03/14/21 Review of Systems is unable to be obtained <Claude Hill S - Last Filed: 03/09/21 05:03> Physical Examination - Vital Signs Temperature: 98.1 F Blood Pressure: 179/89 Pulse: 79 Respirations: 20 - Physical Exam General: In no apparent distress, Demented, Confused HEENT: Atraumatic, PERRLA, Mucous membr. moist/pink, EOMI, Sclerae nonicteric Neck: Supple, 2+ carotid pulse no bruit, No LAD, Without JVD or thyroid abnormality Respiratory: Diminished, Rhonchi/gurgles Cardiovascular: Regular rate/rhythm, Normal S1 S2 Gastrointestinal: Normal bowel sounds, No tenderness Musculoskeletal: No tenderness Integumentary: No rashes Neurological: Normal speech, Normal strength at 5/5 x4 extr, Normal tone, Sensation intact, Cranial nerves 3-12 intact, Dementia Lymphatics: No axilla or inguinal lymphadenopathy - Studies Laboratory Data (last 24 hrs) 03/08/21 20:30: PT 12.0, INR 1.04 03/08/21 20:30: WBC 15.50 H, Hgb 13.5, Hct 40.0, Plt Count 560 H 03/08/21 20:30: Sodium 125 L, Potassium 4.8, BUN 11, Creatinine 0.60, Glucose 108 H, Magnesium 2.3, Total Bilirubin 0.2, AST 12 L, ALT 11 L, Alkaline Phosphatase 91 <Claude Hill - Last Filed: 03/09/21 05:03> Assessment and Plan - Problems (Diagnosis) (1) Dementia Onset Date: 02/07/17 Status: Chronic Qualifiers: Dementia type: unspecified type (2) Hyponatremia Onset Date: 12/01/17 Status: Acute (3) Hypoxia Onset Date: 02/07/17 Status: Acute (4) Seizure disorder Onset Date: 11/28/17 Status: Chronic - Plan pulm consulted, RT consulted continue O2 as needed, breathing treatments as needed IV levaquin daily continue IVF hydration, monitor sodium levels trend troponins, monitor for signs of volume overload, ECHO pending daily procal, ESR, CRP seizure precautions reconcile and continue home medications Discharge Plan: Home Plan to discharge in: 72 Hours - Advance Directives Does patient have a Living Will: Yes Does patient have a Durable POA for Healthcare: Yes - Code Status/Comfort Care Code Status Assessed: Yes (full code ) Critical Care: No Time Spent Managing Pts Care (In Minutes): 70 <Claude Hill - Last Filed: 03/09/21 05:03> - Problems (Diagnosis) (1) Pneumonia Status: Acute Qualifiers: Pneumonia type: due to unspecified organism Lung location: unspecified part of lung (2) COPD (chronic obstructive pulmonary disease) Onset Date: 02/07/17 Status: Acute Qualifiers: COPD type: COPD with acute exacerbation Qualified Code(s): J44.1 - Chronic obstructive pulmonary disease with (acute) exacerbation (3) Diastolic heart failure Status: Acute Qualifiers: Heart failure chronicity: acute on chronic Qualified Code(s): I50.33 - Acute on chronic diastolic (congestive) heart failure (4) Altered mental status Status: Acute (5) Hypertension Status: Acute (6) B12 deficiency Status: Chronic (7) Dementia Onset Date: 02/07/17 Status: Chronic Qualifiers: Dementia type: unspecified type (8) Seizure disorder Onset Date: 11/28/17 Status: Chronic <Zena Vargas - Last Filed: 03/15/21 01:56> Date of Service: 03/09/21 Subjective Agree with plan of care as mentioned above. Continue with IV diuresing. Review of Systems 10-point ROS is otherwise unremarkable Physical Examination - Vital Signs Reviewed - Physical Exam General: Alert, In no apparent distress, patient with dementia Respiratory: Diminished, Expiratory wheezes Cardiovascular: Regular rate/rhythm, Normal S1 S2, Systolic murmur Gastrointestinal: Normal bowel sounds, Soft and benign, Non-distended, No tenderness Musculoskeletal: No clubbing, No swelling, No tenderness Neurological: Sensation intact, Cranial nerves 3-12 intact; patient with dementia Assessment & Plan - Problems (Diagnosis) (1) Pneumonia Current Visit: Yes Status: Acute Qualifiers: Pneumonia type: due to unspecified organism Lung location: unspecified part of lung (2) COPD (chronic obstructive pulmonary disease) Onset Date: 02/07/17 Current Visit: No Status: Acute Qualifiers: COPD type: COPD with acute exacerbation Qualified Code(s): J44.1 - Chronic obstructive pulmonary disease with (acute) exacerbation (3) Diastolic heart failure Current Visit: Yes Status: Acute Qualifiers: Heart failure chronicity: acute on chronic Qualified Code(s): I50.33 - Acute on chronic diastolic (congestive) heart failure (4) Altered mental status Current Visit: No Status: Acute (5) Hypertension Current Visit: No Status: Acute (6) B12 deficiency Current Visit: No Status: Chronic (7) Dementia Onset Date: 02/07/17 Current Visit: No Status: Chronic Qualifiers: Dementia type: unspecified type (8) Seizure disorder Onset Date: 11/28/17 Current Visit: No Status: Chronic - Plan Continue with plan of care as mentioned below: 1. Continue with IV antibiotics 2. Awaiting sputum and blood culture 3. Repeat chest x-ray 4. Steroids; diuretics 5. Appreciate pulmonary consultation 6. Continue with nebs as needed 7. O2 per protocol 8. Heplock IV 9. Monitor labs 10. GI and DVT prophylaxis <Zena Vargas - Last Filed: 03/15/21 01:56>
[2021-03-09] MEDS: ENOXAPARIN 40 MG/0.4 ML SQ SCH (08:57)
[2021-03-09] MEDS: DIVALPROEX NA 125 MG CAP PO SCH ×3 (08:57→20:49)
[2021-03-09] MEDS: levETIRAcetam 500 MG TAB PO SCH ×2 (08:57→20:51)
--- NOTE | 2021-03-09 12:47 | RAD REPORT ---
EXAM DESCRIPTION: CT - Chest For Pe Angio - 03/09/2021 6:51 am COMPARISON: Chest radiograph from today. TECHNIQUE: CTA of the chest was performed following intravenous administration of iodinated contrast . Axial soft tissue and bone window, and coronal and sagittal soft tissue window reconstructions were created and sent to PACS. 3D postprocessing was performed on an independent workstation, with images sent to PACS for subsequen t review. This exam was performed according to our departmental dose-optimization program, which includes autom ated exposure control, adjustment of the mA and/or kV according to patient size and/or use of iterati ve reconstruction technique. FINDINGS: Vascular: The pulmonary arteries are well-opacified to the segmental level. No CT evidence of acute pulmonary thromboembolism. Prominent main pulmonary trunk, measuring up to 3.6 cm in diamet er. Moderate calcific atherosclerosis. No evidence of aortic aneurysm. Lungs and pleura: Extensive interstitial thickening in the lungs, most prominent in the right lung. N o definite pulmonary consolidation. No pleural effusion. No pneumothorax. Mediastinum and neck: No mediastinal lymphadenopathy by CT size criteria. Cardiac: No cardiomegaly or pericardial effusion. Abdomen: No significant upper abdominal abnormality identified. Musculoskeletal: No concerning osseous abnormality. Osteopenia. Mild wedge compression deformities at T6 and T8. No significant bony retropulsion. IMPRESSION: 1. No CTA evidence of acute pulmonary thromboembolism. 2. Extensive interstitial thickening in the lungs, most prominent on the right. No evidence of pulm onary consolidation. No pleural effusions. 3. Prominent main pulmonary trunk, which can be seen with pulmonary arterial hypertension. Electronically signed by: Micki Nelson MD 03/08/2021 10:22 PM CDT Due to temporary technical issues with the PACS/Fluency reporting system, reports are being signed by the in house radiologists without review as a courtesy to insure prompt reporting. The interpreting radiologist is fully responsible for the content of the report.
--- NOTE | 2021-03-09 12:56 | EKG ---
Test Date: 2021-03-08 Test Time: 20:19:06 Elastic Attacher Coverstitch: VITALIY MEASUREMENT RESULTS: Intervals: Rate: 91 NV: 172 QRSD: 82 QT: 360 QTc: 442 [place]: P: 68 NV: 172 QRS: 49 T: 62 INTERPRETIVE STATEMENTS: Normal sinus rhythm Normal ECG Compared to ECG 08/10/2020 14:16:52 Myocardial infarct finding no longer present Electronically Signed On 03-09-21 12:53:52 CDT by Kun Calderon
[2021-03-09] MEDS ORDERED: MAGNESIUM HYDROXIDE 8% 30 ML PO PRN (17:55)
[2021-03-09] MEDS ORDERED: HOME MED 1 EA UNK (Acetaminophen [Tylenol Arthritis] 650 MG Tablet.Er) PO PRN (17:55)
[2021-03-09] MEDS ORDERED: METOPROLOL TARTRATE 5 MG/5 ML INJ IV PRN (17:56)
[2021-03-09] MEDS ORDERED: HYDRALAZINE HCL 20 MG/ML VIAL IV ONE (17:56)
[2021-03-09] MEDS: METOPROLOL TAR 25 MG TAB PO SCH (18:26)
[2021-03-09] MEDS: LOSARTAN POTASSIUM 50 MG TABLET PO SCH (20:50)
[2021-03-09] MEDS ORDERED: levETIRAcetam 500 MG TAB PO SCH (21:00)
[2021-03-09] MEDS ORDERED: DIVALPROEX NA 125 MG CAP PO SCH (21:00)
[2021-03-09] MEDS ORDERED: PHENYTOIN SODIUM 300 MG PO SCH (21:00)
[2021-03-10] MEDS: Levofloxacin 750mg IV 750 MG/150 ML BAG IV SCH (01:54)
[2021-03-10 04:24] LABS: Absolute Lymphocytes (CBC) 1.3 K/uL (0.7-4.9); Basophils % 0.4 % (0-1.3); Hematocrit 39.4 % (36.0-45.0); Lymphocytes % 10.8 % (15.3-44.8)
[2021-03-10] MEDS: NA CHLORIDE 0.9% 1,000 ML IV SCH (04:40)
[2021-03-10 04:55] LABS: ALT/SGPT 12 U/L (12-78); AST/SGOT 11 U/L (15-37); Albumin 2.8 g/dL (3.4-5.0); Alkaline Phosphatase 80 U/L (45-117); BUN Blood Urea Nitrogen 7 mg/dL (7-18); Bicarbonate 28 mmol/L (21-32); Bilirubin Total 0.4 mg/dL (0.2-1.0); Glucose Level 90 mg/dL (74-106); Magnesium 2.1 mg/dL (1.8-2.4); Phosphorus 3.2 mg/dL (2.5-4.9); Potassium 4.2 mmol/L (3.5-5.1); Protein, Total 7.3 g/dL (6.4-8.2); Sodium Level 128 mmol/L (136-145)
[2021-03-10] MEDS: METOPROLOL TAR 25 MG TAB PO SCH ×2 (05:49→16:51)
[2021-03-10] MEDS: LORATADINE 10 MG TAB PO SCH (09:00)
[2021-03-10] MEDS: ENOXAPARIN 40 MG/0.4 ML SQ SCH ×2 (09:00→09:47)
[2021-03-10] MEDS: SODIUM CHLORIDE 1 GM TAB PO SCH ×2 (09:47→16:51)
[2021-03-10] MEDS: LOSARTAN POTASSIUM 50 MG TABLET PO SCH ×2 (09:48→21:13)
[2021-03-10] MEDS: DIVALPROEX NA 125 MG CAP PO SCH ×3 (09:48→21:13)
[2021-03-10] MEDS: levETIRAcetam 500 MG TAB PO SCH ×2 (09:49→21:13)
[2021-03-10] MEDS: FLUOXETINE 20 MG CAP PO SCH (09:49)
[2021-03-10] MEDS ORDERED: METHYLPREDNISOLONE 125 MG INJ IV SCH (11:44)
--- NOTE | 2021-03-10 11:46 | P.CNS ---
Date of Consult: 03/10/21 Reason for Consult: Pneumonia hypoxemia Chief Complaint: hypoxia History of Present Illness: Patient is 80 years of age with a history of significant dementia lives in a residential admitted with hypoxemia altered mental status family patient denies any complaints she has a nasal cannula oxygen looks very well alert responsive cooperative chest x-ray shows significant interstitial changes worse on the right side patient does not smoke Allergies nitrofurantoin macrocrystal [From Macrobid] Allergy (Severe, Verified 07/07/20 11:11) Itching/Hives/Rash cephalexin monohydrate [From Keflex] Allergy (Verified 07/07/20 11:11) Hives nitrofurantoin [From Macrobid] Allergy (Verified 07/07/20 11:11) Unknown Penicillins Allergy (Verified 07/07/20 11:11) Hives tetracycline [Tetracycline] Allergy (Verified 07/07/20 11:11) Hives Sulfa (Sulfonamid Allergy (Uncoded 11/28/17 02:38) Unknown tetracycline Allergy (Uncoded 11/28/17 02:37) Unknown Home Medications: Fluoxetine HCl [Prozac] 20 mg PO DAILY 30 Days #30 capsule 08/20/20 Sodium Chloride Tab [Sodium Chloride*] 1 gm PO BIDWM 14 Days #28 tab 08/20/20 Trazodone [Desyrel*] 50 mg PO BEDTIME PRN PRN 30 Days #30 tablet 08/20/20 Acetaminophen [Tylenol Arthritis] 650 mg PO Q8HP PRN 03/09/21 Divalproex [Depakote Sprinkle] 240 mg PO TID 03/09/21 Estradiol [Estrace] 1 appl VG DAILY 03/09/21 Famotidine [Pepcid] 20 mg PO DAILYPRN PRN 03/09/21 Loratadine [Claritin] 10 mg PO DAILY 03/09/21 Magnesium Hydroxide [Milk of Magnesia] 5 ml PO Q8HP PRN 03/09/21 Phenytoin Sodium Extended [Phenytek] 300 mg PO BEDTIME 03/09/21 levETIRAcetam [Levetiracetam] 500 mg PO BID 03/09/21 - Past Medical/Surgical History Diabetic: No -: Seizure disorder -: Neurogenic bladder -: Patient self caths -: Hypertension -: dementia -: tonsillectomy -: hysterectomy -: left femur fx Psychosocial/ Personal History: The patient is a . She has 2 children. She is living in a residential - Social History Smoking Status: Former smoker Alcohol use: No CD- Drugs: No Caffeine use: Yes Place of Residence: [facility] Review of Systems 10-point ROS is otherwise unremarkable Physical Examination Temp Pulse Resp BP Pulse Ox 99.1 F 65 15 144/67 H 95 03/10/21 08:00 03/10/21 08:00 03/10/21 08:00 03/10/21 08:00 03/10/21 08:00 General: Alert, Oriented x3 Respiratory: Crackles/rales (Crackles on the right side) Cardiovascular: No edema, Regular rate/rhythm, Normal S1 S2 - Problems (1) Pneumonia Current Visit: Yes Status: Acute Plan: Patient is 80 years of age admitted with acute community-acquired interstitial pneumonia right worse than the left with hypoxemia was likely atypical pneumonia I recommend business change manager to p.o. levofloxacin add some steroids evaluate for home O2 with discharge follow up with me in 2 weeks Dc IV fluids chronic hyponatremia I suspect is from the valproate the not respond to IV fluids white count is declining labs reviewed pro calcitonin level is negative she will qualify for home O2 lives in a residential/discharged home on prednisone 10 b.i.d. for 2 weeks in addition to levofloxacin for about 7 days Qualifiers: Pneumonia type: due to unspecified organism Lung location: unspecified part of lung
--- NOTE | 2021-03-10 12:29 | RAD REPORT ---
EXAM DESCRIPTION: [place] Single View03/10/2021 12:22 pm CLINICAL HISTORY: Shortness of breath COMPARISON: March 08, 2021 FINDINGS: There has been improvement in the bilateral pulmonary opacities. Heart remains enlarged IMPRESSION: Improvement in the bilateral pulmonary opacities which may represent pulmonary edema or pneumonia
[2021-03-10] MEDS ORDERED: ALBUTEROL 2.5 MG/3 ML NEB SOL ONE (13:43)
[2021-03-10] MEDS: ALBUTEROL 2.5 MG/3 ML NEB SOL NEB SCH ×3 (14:30→23:05)
[2021-03-10] MEDS: METHYLPREDNISOLONE 40 MG INJ IV SCH ×2 (14:50→21:13)
[2021-03-10] MEDS: levoFLOXacin 500 MG TAB PO SCH (21:13)
[2021-03-10] MEDS: PHENYTOIN ER 100 MG CAP PO SCH (21:13)
[2021-03-11] MEDS: METOPROLOL TAR 25 MG TAB PO SCH ×2 (06:06→16:59)
[2021-03-11] MEDS: ALBUTEROL 2.5 MG/3 ML NEB SOL NEB SCH ×2 (08:09→15:22)
--- NOTE | 2021-03-11 08:12 | ECHO ---
HEIGHT: 5 ft 4 in WEIGHT: 126 lb 0 oz DATE OF STUDY: 03/10/[address]: Claude Hill 2-DIMENSIONAL: YES M.MODE: YES DOPPLER: YES COLOR FLOW: YES TDS: NO PORTABLE: NO DEFINITY: NO BUBBLE STUDY: NO DIAGNOSIS: ELEVATED TROPONIN CARDIAC HISTORY: CATHERIZATION: SURGERY: PROSTHETIC VALVE: PACEMAKER: MEASUREMENTS (cm) DIASTOLIC (NORMALS) SYSTOLIC (NORMALS) IVSd 0.9 (0.6-1.2) LA Diam 2.8 (1.9-4.0) LVEF 69% LVIDd 4.1 (3.5-5.7) LVIDs 2.5 (2.0-3.5) %FS 38% LVPWd 0.9 (0.6-1.2) Ao Diam 2.4 (2.0-3.7) 2 DIMENSIONAL ASSESSMENT: RIGHT ATRIUM: NORMAL LEFT ATRIUM: NORMAL RIGHT VENTRICLE: NORMAL LEFT VENTRICLE: NORMAL TRICUSPID VALVE: NORMAL MITRAL VALVE: NORMAL PULMONIC VALVE: NORMAL AORTIC VALVE: SCLEROSIS PERICARDIAL EFFUSION: NONE AORTIC ROOT: NORMAL LEFT VENTRICULAR WALL MOTION: NORMAL DOPPLER/COLOR FLOW: MILD TRICUSPID REGURGITATION. RIGHT VENTRICULAR SYSTOLIC PRESSURE 44 mmHg. COMMENTS: MILD PULMONARY HYPERTENSION. RIGHT VENTRICULAR SYSTOLIC PRESSURE 44 mmHg. AORTIC SCLEROSIS WITH NO STENOSIS. NORMAL LEFT VENTRICULAR SIZE AND FUNCTION. MILD TRICUSPID REGURGITATION. TECHNOLOGIST: Demetrius GALVAN
[2021-03-11] MEDS: METHYLPREDNISOLONE 40 MG INJ IV SCH (08:17)
[2021-03-11] MEDS: SODIUM CHLORIDE 1 GM TAB PO SCH ×2 (08:17→16:37)
[2021-03-11] MEDS: levETIRAcetam 500 MG TAB PO SCH ×2 (08:18→20:57)
[2021-03-11] MEDS: FLUOXETINE 20 MG CAP PO SCH (08:18)
[2021-03-11] MEDS: LOSARTAN POTASSIUM 50 MG TABLET PO SCH ×2 (08:18→20:58)
[2021-03-11] MEDS: DIVALPROEX NA 125 MG CAP PO SCH ×3 (08:18→21:31)
[2021-03-11] MEDS: LORATADINE 10 MG TAB PO SCH (08:19)
[2021-03-11] MEDS: ENOXAPARIN 40 MG/0.4 ML SQ SCH (08:20)
[2021-03-11] MEDS ORDERED: FUROSEMIDE 20 MG/ 2ML VIAL IV ONE (08:44)
[2021-03-11] MEDS: predniSONE 20 MG TAB PO SCH ×2 (08:48→20:59)
--- NOTE | 2021-03-11 08:48 | P.PN ---
Subjective Date of Service: 03/11/21 Chief Complaint: hypoxia Subjective: Improving (Patient is feeling fine and experiencing desaturation as had to be turned up to 5 L of nasal cannula oxygen) Review of Systems General: Weakness Respiratory: Shortness of Breath Physical Examination - Vital Signs Temperature: 98.2 F Blood Pressure: 143/69 Pulse: 65 Respirations: 18 Pulse Ox (%): 91 - Physical Exam General: Alert, In no apparent distress, Oriented x3 Respiratory: Crackles/rales (Crackles on the right side) Cardiovascular: No edema, Regular rate/rhythm Assessment & Plan - Problems (Diagnosis) (1) Pneumonia Current Visit: Yes Status: Acute Plan: So phos patient still continues to remain hypoxic chest x-ray more prominent interstitial changes bilaterally right greater than left no evidence of active sepsis change to p.o. prednisone continue with p.o. levofloxacin Qualifiers: Pneumonia type: due to unspecified organism Lung location: unspecified part of lung (2) Diastolic heart failure Current Visit: Yes Status: Acute Plan: I suspect patient has element of diastolic heart failure echocardiogram shows mild pulmonary hypertension the given under dose of Lasix at low-dose spironolactone patient is still requiring significant amount of oxygen physical therapy labs reviewed evaluate tomorrow patient's BNP is significantly elevated Qualifiers: Heart failure chronicity: acute on chronic Qualified Code(s): I50.33 - Acute on chronic diastolic (congestive) heart failure
[2021-03-11] MEDS: SPIRONOLACTONE 25 MG TABLET PO SCH (08:57)
--- NOTE | 2021-03-11 09:12 | RAD REPORT ---
EXAM DESCRIPTION: RAD - Chest Single View - 03/11/2021 4:58 am CLINICAL HISTORY: pneumonia Chest pain. COMPARISON: Chest Single View dated 03/10/2021; Chest Single View dated 03/08/2021; Chest Single View dated 06/17/2020; Abdomen 1 View (KUB) dated 08/14/2017 FINDINGS: Portable technique limits examination quality. Moderate bilateral interstitial lung opacities are noted, worse on the right. These appear unchanged since yesterday's study. The heart is mildly enlarged in size. No displaced fractures.Aortic atherosc lerosis. IMPRESSION: Stable chest since 03/10/2021 study.
[2021-03-11] MEDS: PHENYTOIN ER 100 MG CAP PO SCH (20:56)
[2021-03-11] MEDS: levoFLOXacin 500 MG TAB PO SCH (20:59)
[2021-03-12] MEDS: ALBUTEROL 2.5 MG/3 ML NEB SOL NEB SCH ×4 (00:14→23:50)
[2021-03-12] MEDS: METOPROLOL TAR 25 MG TAB PO SCH ×2 (06:01→18:38)
--- NOTE | 2021-03-12 08:43 | RAD REPORT ---
EXAM DESCRIPTION: RAD - Chest Single View - 03/12/2021 6:35 am CLINICAL HISTORY: CHF versus pneumonia Chest pain. COMPARISON: Chest Single View dated 03/11/2021; Chest Single View dated 03/10/2021; Chest Single View d ated 03/08/2021; Chest Single View dated 06/17/2020 FINDINGS: Portable technique limits examination quality. Little overall change is seen in the appearance of the chest since yesterday's study. Interstitial marc ng opacities, greater on the right, appear unchanged. The heart is normal in size. Aortic atheroscler osis. IMPRESSION: Stable chest since yesterday's study.
[2021-03-12] MEDS: LORATADINE 10 MG TAB PO SCH (09:00)
[2021-03-12] MEDS: SODIUM CHLORIDE 1 GM TAB PO SCH ×2 (09:11→18:37)
[2021-03-12] MEDS: levETIRAcetam 500 MG TAB PO SCH ×2 (09:12→21:48)
[2021-03-12] MEDS: FLUOXETINE 20 MG CAP PO SCH (09:12)
[2021-03-12] MEDS: predniSONE 20 MG TAB PO SCH ×2 (09:12→21:49)
[2021-03-12] MEDS: DIVALPROEX NA 125 MG CAP PO SCH ×3 (09:12→21:48)
[2021-03-12] MEDS: ENOXAPARIN 40 MG/0.4 ML SQ SCH (09:16)
[2021-03-12] MEDS: LOSARTAN POTASSIUM 50 MG TABLET PO SCH ×2 (09:17→21:49)
[2021-03-12] MEDS: SPIRONOLACTONE 25 MG TABLET PO SCH (09:17)
[2021-03-12] MEDS ORDERED: HYDRALAZINE HCL 20 MG/ML VIAL IV PRN (18:44)
[2021-03-12] MEDS: levoFLOXacin 500 MG TAB PO SCH (21:48)
[2021-03-12] MEDS: PHENYTOIN ER 100 MG CAP PO SCH (21:49)
[2021-03-13 06:10] LABS: Absolute Lymphocytes (CBC) 1.2 K/uL (0.7-4.9); Basophils % 0.4 % (0-1.3); Hematocrit 41.6 % (36.0-45.0); Lymphocytes % 11.7 % (15.3-44.8); MPV 7.1 fL (7.6-11.3); RBC Red Blood Cell Count 4.54 M/uL (3.86-4.86)
[2021-03-13] MEDS: METOPROLOL TAR 25 MG TAB PO SCH ×2 (06:14→18:14)
[2021-03-13 06:29] LABS: BUN Blood Urea Nitrogen 11 mg/dL (7-18); Bicarbonate 27 mmol/L (21-32); Glucose Level 110 mg/dL (74-106); Magnesium 2.2 mg/dL (1.8-2.4); NT PRO-BNP 255 pg/mL (<450); Phosphorus 4.2 mg/dL (2.5-4.9); Potassium 4.5 mmol/L (3.5-5.1); Sodium Level 124 mmol/L (136-145)
[2021-03-13] MEDS: LORATADINE 10 MG TAB PO SCH (09:00)
[2021-03-13] MEDS: ALBUTEROL 2.5 MG/3 ML NEB SOL NEB SCH ×2 (09:02→16:24)
--- NOTE | 2021-03-13 09:27 | RAD REPORT ---
EXAM DESCRIPTION: RAD - Chest Single View - 03/13/2021 6:48 am CLINICAL HISTORY: pneumonia Chest pain. COMPARISON: Chest Single View dated 03/12/2021; Chest Single View dated 03/11/2021; Chest Single View da luke 03/10/2021; Chest Single View dated 03/08/2021 FINDINGS: Portable technique limits examination quality. Bilateral pulmonary opacities have slightly improved since comparative study. The heart is normal in size. No displaced fractures. IMPRESSION: Mild improvement lung aeration is present since yesterday's study.
[2021-03-13] MEDS: SPIRONOLACTONE 25 MG TABLET PO SCH (10:52)
[2021-03-13] MEDS: DIVALPROEX NA 125 MG CAP PO SCH ×3 (10:52→20:54)
[2021-03-13] MEDS: levETIRAcetam 500 MG TAB PO SCH ×2 (10:53→20:54)
[2021-03-13] MEDS: predniSONE 20 MG TAB PO SCH ×2 (10:53→20:54)
[2021-03-13] MEDS: LOSARTAN POTASSIUM 50 MG TABLET PO SCH ×2 (10:53→20:55)
[2021-03-13] MEDS: ENOXAPARIN 40 MG/0.4 ML SQ SCH (10:54)
[2021-03-13] MEDS: SODIUM CHLORIDE 1 GM TAB PO SCH ×3 (11:00→18:15)
[2021-03-13] MEDS: FLUOXETINE 20 MG CAP PO SCH (11:00)
--- NOTE | 2021-03-13 12:08 | P.PN ---
Subjective Date of Service: 03/10/21 Subjective: No new changes, No C/O voiced, Demented Patient with dementia. Not really able to give much of a history from her. She still is a little hypoxic. Try to get her with oxygen weaned off in repeated chest x-ray. Otherwise no new complaints. She looks to be comfortable. Review of Systems 10-point ROS is otherwise unremarkable Physical Examination - Vital Signs Temperature: 98.0 F Blood Pressure: 155/70 Pulse: 63 Respirations: 20 Pulse Ox (%): 91 - Physical Exam General: Alert, In no apparent distress, Oriented x3 Respiratory: Diminished, Expiratory wheezes Cardiovascular: Regular rate/rhythm, Normal S1 S2, Systolic murmur Gastrointestinal: Normal bowel sounds, Soft and benign, Non-distended, No tenderness Musculoskeletal: No clubbing, No swelling, No tenderness Neurological: Sensation intact, Cranial nerves 3-12 intact - Studies Medications List Reviewed: Yes Assessment & Plan - Problems (Diagnosis) (1) Pneumonia Current Visit: Yes Status: Acute Qualifiers: Pneumonia type: due to unspecified organism Lung location: unspecified part of lung (2) COPD (chronic obstructive pulmonary disease) Onset Date: 02/07/17 Current Visit: No Status: Acute Qualifiers: COPD type: COPD with acute exacerbation Qualified Code(s): J44.1 - Chronic obstructive pulmonary disease with (acute) exacerbation (3) Diastolic heart failure Current Visit: Yes Status: Acute Qualifiers: Heart failure chronicity: acute on chronic Qualified Code(s): I50.33 - Acute on chronic diastolic (congestive) heart failure (4) Altered mental status Current Visit: No Status: Acute (5) Hypertension Current Visit: No Status: Acute (6) B12 deficiency Current Visit: No Status: Chronic (7) Dementia Onset Date: 02/07/17 Current Visit: No Status: Chronic Qualifiers: Dementia type: unspecified type (8) Seizure disorder Onset Date: 11/28/17 Current Visit: No Status: Chronic - Plan 1. Continue with IV antibiotics 2. Awaiting sputum and blood culture 3. Repeat chest x-ray 4. Steroids; diuretics 5. Appreciate pulmonary consultation 6. Continue with nebs as needed 7. O2 per protocol 8. Heplock IV 9. Monitor labs 10. GI and DVT prophylaxis Discharge Plan: Home Plan to discharge in: Greater than 2 days - Advance Directives Does patient have a Living Will: Yes Does patient have a Durable POA for Healthcare: Yes - Code Status/Comfort Care Code Status Assessed: Yes Code Status: Full Code Critical Care: No Time Spent Managing PTS Care (In Minutes): 35
--- NOTE | 2021-03-13 12:09 | P.PN ---
Date of Service: 03/11/21 Subjective Patient tends to improve with no new complaints. Patient's clinical symptoms are improving. Review of Systems 10-point ROS is otherwise unremarkable Physical Examination - Vital Signs Reviewed - Physical Exam General: Alert, In no apparent distress, Oriented x3 Respiratory: Diminished, Expiratory wheezes Cardiovascular: Regular rate/rhythm, Normal S1 S2, Systolic murmur Gastrointestinal: Normal bowel sounds, Soft and benign, Non-distended, No tenderness Musculoskeletal: No clubbing, No swelling, No tenderness Neurological: Sensation intact, Cranial nerves 3-12 intact Assessment & Plan - Problems (Diagnosis) (1) Pneumonia Current Visit: Yes Status: Acute Qualifiers: Pneumonia type: due to unspecified organism Lung location: unspecified part of lung (2) COPD (chronic obstructive pulmonary disease) Onset Date: 02/07/17 Current Visit: No Status: Acute Qualifiers: COPD type: COPD with acute exacerbation Qualified Code(s): J44.1 - Chronic obstructive pulmonary disease with (acute) exacerbation (3) Diastolic heart failure Current Visit: Yes Status: Acute Qualifiers: Heart failure chronicity: acute on chronic Qualified Code(s): I50.33 - Acute on chronic diastolic (congestive) heart failure (4) Altered mental status Current Visit: No Status: Acute (5) Hypertension Current Visit: No Status: Acute (6) B12 deficiency Current Visit: No Status: Chronic (7) Dementia Onset Date: 02/07/17 Current Visit: No Status: Chronic Qualifiers: Dementia type: unspecified type (8) Seizure disorder Onset Date: 11/28/17 Current Visit: No Status: Chronic - Plan Continue with plan of care as mentioned below: 1. Continue with IV antibiotics 2. Awaiting sputum and blood culture 3. Repeat chest x-ray 4. Steroids; diuretics 5. Appreciate pulmonary consultation 6. Continue with nebs as needed 7. O2 per protocol 8. Heplock IV 9. Monitor labs 10. GI and DVT prophylaxis
[2021-03-13] MEDS ORDERED: FUROSEMIDE 40 MG/4 ML VIAL IV ONE (12:11)
--- NOTE | 2021-03-13 12:11 | P.PN ---
Date of Service: 03/12/21 Subjective Patient's clinical symptoms are improving. Chest x-ray showing some improvement. Continue with antibiotic therapy for now on and anticipate discharge in the morning. Arrange for home oxygen. Review of Systems 10-point ROS is otherwise unremarkable Physical Examination - Vital Signs Reviewed - Physical Exam General: Alert, In no apparent distress, Oriented x3 Respiratory: Diminished, Expiratory wheezes Cardiovascular: Regular rate/rhythm, Normal S1 S2, Systolic murmur Gastrointestinal: Normal bowel sounds, Soft and benign, Non-distended, No tenderness Musculoskeletal: No clubbing, No swelling, No tenderness Neurological: Sensation intact, Cranial nerves 3-12 intact Assessment & Plan - Problems (Diagnosis) (1) Pneumonia Current Visit: Yes Status: Acute Qualifiers: Pneumonia type: due to unspecified organism Lung location: unspecified part of lung (2) COPD (chronic obstructive pulmonary disease) Onset Date: 02/07/17 Current Visit: No Status: Acute Qualifiers: COPD type: COPD with acute exacerbation Qualified Code(s): J44.1 - Chronic obstructive pulmonary disease with (acute) exacerbation (3) Diastolic heart failure Current Visit: Yes Status: Acute Qualifiers: Heart failure chronicity: acute on chronic Qualified Code(s): I50.33 - Acute on chronic diastolic (congestive) heart failure (4) Altered mental status Current Visit: No Status: Acute (5) Hypertension Current Visit: No Status: Acute (6) B12 deficiency Current Visit: No Status: Chronic (7) Dementia Onset Date: 02/07/17 Current Visit: No Status: Chronic Qualifiers: Dementia type: unspecified type (8) Seizure disorder Onset Date: 11/28/17 Current Visit: No Status: Chronic - Plan Continue with plan of care as mentioned below: 1. Continue with IV antibiotics; may change to oral antibiotics in a.m. 2. Cultures been negative. 3. Repeat chest x-ray. Anticipate discharge if shows improvement 4. Tapering doses of steroids 5. Appreciate pulmonary consultation 6. Continue with nebs as needed 7. O2 per protocol 8. Heplock IV 9. Monitor labs; procalcitonin negative. 10. GI and DVT prophylaxis
[2021-03-13] MEDS: PHENYTOIN ER 100 MG CAP PO SCH (20:54)
[2021-03-13] MEDS: levoFLOXacin 500 MG TAB PO SCH (20:55)
[2021-03-14] MEDS: ALBUTEROL 2.5 MG/3 ML NEB SOL NEB SCH ×2 (00:35→09:14)
[2021-03-14] MEDS: METOPROLOL TAR 25 MG TAB PO SCH (05:42)
[2021-03-14 06:45] LABS: Absolute Lymphocytes (CBC) 0.6 K/uL (0.7-4.9); Basophils % 0.2 % (0-1.3); Hematocrit 43.1 % (36.0-45.0); Lymphocytes % 5.5 % (15.3-44.8); MPV 7.4 fL (7.6-11.3); RBC Red Blood Cell Count 4.64 M/uL (3.86-4.86)
[2021-03-14 07:03] LABS: BUN Blood Urea Nitrogen 10 mg/dL (7-18); Bicarbonate 31 mmol/L (21-32); Glucose Level 103 mg/dL (74-106); Magnesium 2.2 mg/dL (1.8-2.4); NT PRO-BNP 118 pg/mL (<450); Potassium 4.6 mmol/L (3.5-5.1); Sodium Level 128 mmol/L (136-145)
--- NOTE | 2021-03-14 08:35 | RAD REPORT ---
EXAM DESCRIPTION: RAD - Chest Single View - 03/14/2021 5:44 am CLINICAL HISTORY: pneumonia COMPARISON: Portable March 13, March 12 TECHNIQUE: AP portable chest image was obtained 03/14/2021 5:44 am . FINDINGS: Chronic interstitial lung disease is present. There has been slight interval improvement i n the right lung field since prior imaging. Left lung field is stable. Little or no acute disease is present or remains in the left hemithorax. Heart and vasculature are normal. No measurable pleural effusion and no pneumothorax. No acute bony abnormality seen. No acute aortic findings suspected. IMPRESSION: Continued slight improvement in the lung aeration pattern.
[2021-03-14] MEDS: ENOXAPARIN 40 MG/0.4 ML SQ SCH (08:40)
[2021-03-14] MEDS: DIVALPROEX NA 125 MG CAP PO SCH (08:40)
[2021-03-14] MEDS: SPIRONOLACTONE 25 MG TABLET PO SCH (08:41)
[2021-03-14] MEDS: LOSARTAN POTASSIUM 50 MG TABLET PO SCH (08:41)
[2021-03-14] MEDS: predniSONE 20 MG TAB PO SCH (08:41)
[2021-03-14] MEDS: levETIRAcetam 500 MG TAB PO SCH (08:41)
[2021-03-14] MEDS: FLUOXETINE 20 MG CAP PO SCH (08:41)
[2021-03-14] MEDS: LORATADINE 10 MG TAB PO SCH (08:41)
[2021-03-14] MEDS: SODIUM CHLORIDE 1 GM TAB PO SCH (08:45)
[2021-03-14 09:38] VITALS: O2SAT 96
--- NOTE | 2021-03-14 10:39 | P.PN ---
Subjective Date of Service: 03/14/21 Chief Complaint: Respiratory failure Subjective: Improving (Patient is doing much better oxygen requirements are declining seen in still appears to be hypoxic chest x-ray has improved) Review of Systems General: Weakness Respiratory: Shortness of Breath Physical Examination - Vital Signs Temperature: 97.5 F Blood Pressure: 142/68 Pulse: 57 Respirations: 18 Pulse Ox (%): 94 - Physical Exam General: Alert, In no apparent distress, Oriented x2 Respiratory: Clear to auscultation bilaterally, Normal air movement Cardiovascular: No edema, Regular rate/rhythm - Studies Medications List Reviewed: Yes Assessment & Plan - Problems (Diagnosis) (1) Pneumonia Current Visit: Yes Status: Acute Plan: Patient is improving chest x-rays improving continue with low-dose prednisone low-dose spironolactone check room air ABG labs shows chronic hyponatremia white count normal possible discharge probably has underlying diastolic dysfunction Qualifiers: Pneumonia type: due to unspecified organism Lung location: unspecified part of lung (2) Diastolic heart failure Current Visit: Yes Status: Acute Plan: Continue with low-dose spironolactone Qualifiers: Heart failure chronicity: acute on chronic Qualified Code(s): I50.33 - Acute on chronic diastolic (congestive) heart failure
[2021-03-14] MEDS ORDERED: FUROSEMIDE 20 MG/ 2ML VIAL IV ONE (10:47)
[2021-03-14 14:31] VITALS: BP 148/71; TEMP 97.7
[2021-03-14] MEDS ORDERED: predniSONE 20 MG TAB PO SCH (21:00)
--- NOTE | 2021-03-15 01:51 | P.PN ---
Date of Service: 03/13/21 Subjective Patient's continues to improve. Chest x-ray continues to show improvement. Continue with antibiotic therapy for now on and anticipate discharge in the morning. Arrange for home oxygen. Review of Systems 10-point ROS is otherwise unremarkable Physical Examination - Vital Signs Reviewed - Physical Exam General: Alert, In no apparent distress, Oriented x2 except for date; dementia Respiratory: Clear bilaterally Cardiovascular: Regular rate/rhythm, Normal S1 S2, Systolic murmur Gastrointestinal: Normal bowel sounds, Soft and benign, Non-distended, No tenderness Musculoskeletal: No clubbing, No swelling, No tenderness Neurological: Sensation intact, Cranial nerves 3-12 intact Assessment & Plan - Problems (Diagnosis) (1) Pneumonia Current Visit: Yes Status: Acute Qualifiers: Pneumonia type: due to unspecified organism Lung location: unspecified part of lung (2) COPD (chronic obstructive pulmonary disease) Onset Date: 02/07/17 Current Visit: No Status: Acute Qualifiers: COPD type: COPD with acute exacerbation Qualified Code(s): J44.1 - Chronic obstructive pulmonary disease with (acute) exacerbation (3) Diastolic heart failure Current Visit: Yes Status: Acute Qualifiers: Heart failure chronicity: acute on chronic Qualified Code(s): I50.33 - Acute on chronic diastolic (congestive) heart failure (4) Altered mental status Current Visit: No Status: Acute (5) Hypertension Current Visit: No Status: Acute (6) B12 deficiency Current Visit: No Status: Chronic (7) Dementia Onset Date: 02/07/17 Current Visit: No Status: Chronic Qualifiers: Dementia type: unspecified type (8) Seizure disorder Onset Date: 11/28/17 Current Visit: No Status: Chronic - Plan Continue with plan of care as mentioned below: 1. Continue oral antibiotics; continue with IV steroids 2. Cultures been negative. 3. Repeat chest x-ray. Arrange for discharge in a.m. 4. Tapering doses of steroids 5. Appreciate pulmonary consultation 6. Continue with nebs as needed 7. O2 per protocol 8. Heplock IV 9. Monitor labs; procalcitonin negative. 10. GI and DVT prophylaxis
--- NOTE | 2021-03-15 01:54 | P.DS ---
Discharge Date: 03/14/21 Disposition: ROUTINE DISCHARGE Discharge Condition: GOOD Reason for Admission: Respiratory failure - Problems (1) Pneumonia Status: Acute Qualifiers: Pneumonia type: due to unspecified organism Lung location: unspecified part of lung (2) COPD (chronic obstructive pulmonary disease) Onset Date: 02/07/17 Status: Acute Qualifiers: COPD type: COPD with acute exacerbation Qualified Code(s): J44.1 - Chronic obstructive pulmonary disease with (acute) exacerbation (3) Diastolic heart failure Status: Acute Qualifiers: Heart failure chronicity: acute on chronic Qualified Code(s): I50.33 - Acute on chronic diastolic (congestive) heart failure (4) Altered mental status Status: Acute (5) Hypertension Status: Acute (6) B12 deficiency Status: Chronic (7) Dementia Onset Date: 02/07/17 Status: Chronic Qualifiers: Dementia type: unspecified type (8) Seizure disorder Onset Date: 11/28/17 Status: Chronic Brief History of Present Illness: Ms. Boyer is a 80 yo F with dementia, epilepsy brought in today from detention for hypoxia and drowsiness. Placed on NC, sats 93%. Denies cough, wheezing, chest pain. WBC 15.5. Ddimer 3916. Na 125 Cl 92. Trop 0.44. BNP 4068. CXR favors pneumonia over volume overload. CT scan negative for pulmonary embolism. Hospital Course: Patient has done well during hospitalization. She was hypoxic but this turnaround with antibiotics and IV steroids along with diuresing. She is continuing to improve we had to arrange for home oxygen so she will continue at the assisted living. At this time, patient has improved significantly. Her respiratory status is improved. She is getting out of bed on her own. Anticipate discharge home with outpatient follow-up at the assisted living. She is in the memory care unit which she will continue pursuing. Hopefully, patient will do well. Long-term carmona she may benefit from hospice care. If she gets debilitated she will need care home facility placement or detention residence. Vital Signs/Physical Exam: Temp Pulse Resp BP Pulse Ox 97.7 F 65 18 148/71 H 95 03/14/21 16:00 03/14/21 16:00 03/14/21 16:00 03/14/21 16:00 03/14/21 16:00 General: Alert, In no apparent distress, Demented Respiratory: Clear to auscultation bilaterally, Crackles/rales Laboratory Data at Discharge: WBC 10.60 K/uL (4.3-10.9) 03/14/21 06:08 Hgb 14.4 g/dL (12.0-15.0) 03/14/21 06:08 Hct 43.1 % (36.0-45.0) 03/14/21 06:08 Plt Count 472 K/uL (152-406) H 03/14/21 06:08 PT 12.0 SECONDS (9.5-12.5) 03/08/21 20:30 INR 1.04 03/08/21 20:30 Sodium 128 mmol/L (136-145) L 03/14/21 06:08 Potassium 4.6 mmol/L (3.5-5.1) 03/14/21 06:08 BUN 10 mg/dL (7-18) 03/14/21 06:08 Creatinine 0.54 mg/dL (0.55-1.3) L 03/14/21 06:08 Glucose 103 mg/dL (74-106) 03/14/21 06:08 Phosphorus 4.2 mg/dL (2.5-4.9) 03/13/21 05:55 Magnesium 2.2 mg/dL (1.8-2.4) 03/14/21 06:08 Total Bilirubin 0.4 mg/dL (0.2-1.0) 03/10/21 04:07 AST 11 U/L (15-37) L 03/10/21 04:07 ALT 12 U/L (12-78) 03/10/21 04:07 Alkaline Phosphatase 80 U/L (45-117) 03/10/21 04:07 Troponin I 0.30 ng/mL (0.0-0.045) H 03/09/21 11:47 Triglycerides 60 mg/dL (<150) 03/09/21 02:55 Cholesterol 219 mg/dL (<200) H 03/09/21 02:55 HDL Cholesterol 62 mg/dL (40-60) H 03/09/21 02:55 Cholesterol/HDL Ratio 3.53 03/09/21 02:55 Home Medications: Fluoxetine HCl [Prozac] 20 mg PO DAILY 30 Days #30 capsule 08/20/20 Sodium Chloride Tab [Sodium Chloride*] 1 gm PO BIDWM 14 Days #28 tab 08/20/20 Trazodone [Desyrel*] 50 mg PO BEDTIME PRN PRN 30 Days #30 tablet 08/20/20 Acetaminophen [Tylenol Arthritis] 650 mg PO Q8HP PRN 03/09/21 Divalproex [Depakote Sprinkle*] 240 mg PO TID 03/09/21 Estradiol [Estrace] 1 appl VG DAILY 03/09/21 Famotidine [Pepcid*] 20 mg PO DAILYPRN PRN 03/09/21 Loratadine [Claritin*] 10 mg PO DAILY 03/09/21 Magnesium Hydroxide [Milk of Magnesia] 5 ml PO Q8HP PRN 03/09/21 Phenytoin Sodium Extended [Phenytek] 300 mg PO BEDTIME 03/09/21 levETIRAcetam [Levetiracetam] 500 mg PO BID 03/09/21 Albuterol Neb [Proventil 0.083% Neb Soln] 2.5 mg NEB [id number] #30 amp 03/14/21 Furosemide [Lasix] 20 mg PO DAILY #30 tab 03/14/21 Losartan Potassium [Cozaar*] 50 mg PO DAILY #30 tablet 03/14/21 Metoprolol Tartrate [Lopressor*] 25 mg PO BID 6AM 6PM #60 tab 03/14/21 Sodium Chloride Tab [Sodium Chloride*] 2 gm PO BIDWM #60 tab 03/14/21 Spironolactone [Aldactone*] 25 mg PO DAILY #30 tab 03/14/21 levoFLOXacin [Levaquin] 500 mg PO DAILY #5 tab 03/14/21 predniSONE [Prednisone*] 20 mg PO BID #11 tab 03/14/21 New Medications: Spironolactone [Aldactone*] 25 mg PO DAILY #30 tab Losartan Potassium [Cozaar*] 50 mg PO DAILY #30 tablet Furosemide [Lasix] 20 mg PO DAILY #30 tab levoFLOXacin [Levaquin] 500 mg PO DAILY #5 tab Metoprolol Tartrate [Lopressor*] 25 mg PO BID 6AM 6PM #60 tab predniSONE [Prednisone*] 20 mg PO BID #11 tab Albuterol Neb [Proventil 0.083% Neb Soln] 2.5 mg NEB [id number] #30 amp Sodium Chloride Tab [Sodium Chloride*] 2 gm PO BIDWM #60 tab Physician Discharge Instructions: OK TO DC IV AND DC HOME FOLLOW-UP WITH PRIMARY CARE PROVIDER IN 1-2 WEEKS FOLLOW-UP WITH CARDIOLOGY IN 1-2 WEEKS FOLLOW-UP WITH Pulmonary IN 1-2 WEEKS RETURN TO THE ER IF symptoms worsen CALL or TEXT DR. ARGUELLO AT [phone] IF ANY QUESTIONS REGARDING HOSPITAL STAY. PLEASE CALL THE FLOOR AT [phone] IF ANY MEDICATION OR NURSING QUESTIONS. Diet: AHA Activity: Fall precautions Followup: Yosi Montague MD [ACTIVE - CAN ADMIT] - Kun Calderon MD [ACTIVE - CAN ADMIT] - NONE,NONE [Primary Care Provider] - Time spent managing pt's care (in minutes): 35
== END 2021-03-14 16:47 | disposition home or self-care (01) | DRG 193 ==
LOC: ER 19:35 → ERHOLD 03-09 01:30 → 2ND 03-09 01:56
PROVIDERS: ADMIT Internal Medicine; ATTEND Hospitalist
DX: J15.9 Unspecified bacterial pneumonia (principal); I50.33 Acute on chronic diastolic (congestive) heart failure; J44.0 Chronic obstructive pulmonary disease with (acute) lower respiratory infection; E87.1 Hypo-osmolality and hyponatremia; J44.1 Chronic obstructive pulmonary disease with (acute) exacerbation; F03.90 Unspecified dementia, unspecified severity, without behavioral disturbance, psychotic disturbance, mood disturbance, and anxiety; R06.89 Other abnormalities of breathing; G40.909 Epilepsy, unspecified, not intractable, without status epilepticus; N31.9 Neuromuscular dysfunction of bladder, unspecified; I11.0 Hypertensive heart disease with heart failure; E53.8 Deficiency of other specified B group vitamins; G30.9 Alzheimer's disease, unspecified; F02.80 Dementia in other diseases classified elsewhere, unspecified severity, without behavioral disturbance, psychotic disturbance, mood disturbance, and anxiety; Z87.891 Personal history of nicotine dependence
CPT/HCPCS: 36415; 71045; 71275; 80048; 80053; 80061; 80076; 80164; 80177; 80185; 81003; 82805; 83605; 83735; 83880; 84100; 84145; 84439; 84443; 84484; 85025; 85379; 85610; 85652; 86140; 87040; 93005; 93306; 94640; 94760; 96372; 97116; 97161; 97530; 99285; J0360; J1630; J1650; J1940; J2920; J7030; J7512; Q9967; U0003

== ENCOUNTER 2021-03-15 20:47 | Emergency (ER) | payer OTHER ==
--- NOTE | 2021-03-15 21:35 | RAD REPORT ---
EXAM DESCRIPTION: CT - Head Brain Wo Cont - 03/15/2021 9:12 pm CLINICAL HISTORY: HEADACHE Headache, drowsiness COMPARISON: Head Brain Wo Cont dated 08/10/2020; HEAD BRAIN W O CONTRAST dated 10/03/2008 TECHNIQUE: All CT scans are performed using dose optimization technique as appropriate and may inclu de automated exposure control or mA/KV adjustment according to patient size. FINDINGS: No intracranial hemorrhage, hydrocephalus or extra-axial fluid collection.Moderate general ized brain atrophy is present with moderate periventricular and deep white matter chronic microvascul ar ischemic changes.No areas of brain edema or evidence of midline shift. The paranasal sinuses and mastoids are clear. The calvarium is intact. IMPRESSION: No acute intracranial abnormality.
--- NOTE | 2021-03-15 22:16 | ER ---
Nurse's Notes [facility] Name: Joleen Boyer Age: 80 yrs Sex: Female : 1940 Arrival Date: 03/15/2021 Time: 20:49 Bed 27 Private MD: Diagnosis: Unspecified superficial injury of other part of head, initial encounter Presentation: 03/15 20:49 Chief complaint: EMS states: patient fell at [facility]. No LOC. Patient has a ap3 hematoma on the right side of her temporal region, and an abrasion near her right hip. Coronavirus screen: Client denies travel out of the [place] in the last 14 days. At this time, the client does not indicate any symptoms associated with coronavirus-19. Ebola Screen: No symptoms or risks identified at this time. Initial Sepsis Screen: Does the patient meet any 2 criteria? No. Patient's initial sepsis screen is negative. Does the patient have a suspected source of infection? No. Patient's initial sepsis screen is negative. Risk Assessment: Do you want to hurt yourself or someone else? Patient reports no desire to harm self or others. Onset of symptoms was March 15, 2021. 20:49 Method Of Arrival: EMS: [facility] ap3 20:49 Acuity: YORDY 3 ap3 Triage Assessment: 20:51 General: Appears in no apparent distress. comfortable, Behavior is calm, cooperative. ap3 Pain: Denies pain. EENT: No signs and/or symptoms were reported regarding the EENT system. Neuro: Level of Consciousness is awake, obeys commands, Oriented to person, pt has hx of dementia . Cardiovascular: Denies chest pain, lightheadedness. Respiratory: Airway is patent Respiratory effort is even, unlabored, Respiratory pattern is regular, symmetrical, Parent/caregiver reports the patient having patients baseline is 3 liters NC. GI: No signs and/or symptoms were reported involving the gastrointestinal system. : No signs and/or symptoms were reported regarding the genitourinary system. Derm: Wound noted right christianity. Historical: - Allergies: 20:55 Cephalexin Monohydrate; ap3 20:55 Keflex; ap3 20:55 Nitrofurantoin; ap3 20:55 Nitrofurantoin Macrocrystal; ap3 20:55 PENICILLINS; ap3 20:55 Sulfa (Sulfonamide Antibiotics); ap3 20:55 Tetracycline; ap3 - Home Meds: 20:55 diazepam 5 mg Oral tab 1 tab 3 times per day [Active]; Dilantin 30 mg Oral cap nightly ap3 [Active]; terbinafine HCl 250 mg Oral tab 1 tab once daily [Active]; - PMHx: 20:55 COPD; Dementia; Depression; epilepsy; Hypertension; insomnia; macular degeneration; ap3 Neuromuscular dysfunction of bladder; stroke; - Immunization history:: Adult Immunizations up to date. - Social history:: Smoking status: Patient denies any tobacco usage or history of. Screenin:54 Abuse screen: Denies threats or abuse. Nutritional screening: No deficits noted. ap3 Tuberculosis screening: No symptoms or risk factors identified. Fall Risk Fall in past 12 months (25 points). Secondary diagnosis (15 points) dementia, No IV (0 pts). Ambulatory Aid- None/Bed Rest/Nurse Assist (0 pts). Gait- Weak (10 pts.). Mental Status- Overestimates/Forgets Limitations (15 pts.). Total Fowler Fall Scale indicates High Risk Score (45 or more points). Fall prevention measures have been instituted. Side Rails Up X 2 Placed Close to Nursing Station Frequent Obs/Assessments Occuring As available patient and family educated on Fall Prevention Program and Strategies. Assessment: 20:55 General: see triage assessment . ap3 22:22 Reassessment: nurse contacted [facility] in regards to patients discharge. [facility] stated that they will call us back concerning patients transportation back to [facility]. 22:56 General: patient assisted to the restroom. patient ambulated with standby assist. ap3 patient had no shortness of breath, and no injuries occurred. . 23:34 General: patient is awaiting transportation [facility] to the [facility]. ap3 Vital Signs: 20:49 BP 148 / 85; Pulse 69; Resp 18; Temp 97.8; Pulse Ox 98% on 3 lpm NC; Pain 0/10; ap3 23:04 BP 137 / 78; Pulse 73; Resp 17; Pulse Ox 97% on 3 lpm NC; ap3 Fitz Coma Score: 20:58 Eye Response: spontaneous(4). Verbal Response: oriented(5). Motor Response: obeys pm1 commands(6). Total: 15. ED Course: 20:49 Patient arrived in ED. ap3 20:49 Karina Suarez, RN is Primary Nurse. ap3 20:50 Markie Abernathy NP is PHCP. pm1 20:50 Zena Garg MD is Attending Physician. pm1 20:51 Triage completed. ap3 20:54 Patient has correct armband on for positive identification. Bed in low position. Call ap3 light in reach. Side rails up X2. Pulse ox on. NIBP on. Door closed. Noise minimized. 20:55 Arm band placed on right wrist. ap3 21:12 CT Head Brain wo Cont In Process Unspecified. EDMS 21:17 Patient moved back from CT. ap3 22:26 No provider procedures requiring assistance completed. Patient did not have IV access ap3 during this emergency room visit. Administered Medications: No medications were administered Outcome: 22:16 Discharge ordered by . pm1 07 01:22 Discharged to home via wheelchair. ap3 Condition: good Discharge instructions given to [facility], Instructed on discharge instructions, Demonstrated understanding of instructions. 01:22 Patient left the ED. ap3 Signatures: Dispatcher [employer] EDCO Markie Abernathy NP INTERNET MARKETING STRATEGIST pm1 Karina uSarez, JON RN ap3 Corrections: (The following items were deleted from the chart) 03/15 22:59 22:56 General: patient assisted to the restroom. no injuries occurred.. ap3 ap3
--- NOTE | 2021-03-15 22:16 | EDPHYS ---
Physician Documentation [facility] [place], [place] Name: Joleen Boyer Age: 80 yrs Sex: Female : 1940 Arrival Date: 03/15/2021 Time: 20:49 Bed 27 Private MD: ED Physician Zena Garg HPI: 03/15 20:58 This 80 yrs old Female presents to ER via EMS with complaints of Fall injury. pm1 20:58 The patient or guardian reports contusion. The complaints affect the right yazidism. pm1 Context of injury: The problem was sustained at a [facility] or assisted living facility, resulted from stumbled when walking across the room and hit her head on the floor. Onset: The symptoms/episode began/occurred today. Associated signs and symptoms: Loss of consciousness: This patient did not experience any loss of consciousness. Pertinent negatives: shortness of breath, Chest pain. Severity of symptoms: in the emergency department the symptoms are unchanged. The patient has not recently seen a physician. Historical: - Allergies: 20:55 Cephalexin Monohydrate; ap3 20:55 Keflex; ap3 20:55 Nitrofurantoin; ap3 20:55 Nitrofurantoin Macrocrystal; ap3 20:55 PENICILLINS; ap3 20:55 Sulfa (Sulfonamide Antibiotics); ap3 20:55 Tetracycline; ap3 - Home Meds: 20:55 diazepam 5 mg Oral tab 1 tab 3 times per day [Active]; Dilantin 30 mg Oral cap nightly ap3 [Active]; terbinafine HCl 250 mg Oral tab 1 tab once daily [Active]; - PMHx: 20:55 COPD; Dementia; Depression; epilepsy; Hypertension; insomnia; macular degeneration; ap3 Neuromuscular dysfunction of bladder; stroke; - Immunization history:: Adult Immunizations up to date. - Social history:: Smoking status: Patient denies any tobacco usage or history of. ROS: 20:58 Constitutional: Negative for fever, chills, and weight loss, Neck: Negative for injury, pm1 pain, and swelling, Cardiovascular: Negative for chest pain, palpitations, and edema, Respiratory: Negative for shortness of breath, cough, wheezing, and pleuritic chest pain, Abdomen/GI: Negative for abdominal pain, nausea, vomiting, diarrhea, and constipation, Back: Negative for injury and pain, MS/Extremity: Negative for injury and deformity. 20:58 Neuro: Negative for headache, weakness, numbness, tingling, and seizure. 20:58 Skin: Positive for abrasion(s), of the right knee. 20:58 All other systems are negative. Exam: 20:58 Constitutional: This is a well developed, well nourished patient who is awake, alert, pm1 and in no acute distress. 20:58 Neck: Trachea midline, no thyromegaly or masses palpated, and no cervical lymphadenopathy. Supple, full range of motion without nuchal rigidity, or vertebral point tenderness. No Meningismus. 20:58 Chest/axilla: Normal chest wall appearance and motion. Nontender with no deformity. No lesions are appreciated. 20:58 Skin: Warm, dry with normal turgor. Normal color with no rashes, no lesions, and no evidence of cellulitis. MS/ Extremity: Pulses equal, no cyanosis. Neurovascular intact. Full, normal range of motion. 20:58 Head/face: Noted is no obvious of injury or deformity except contusion, that is superficial, of the right yazidism. 20:58 Eyes: Exam is negative for acute changes, Periorbital structures: appear normal, Extraocular movements: no acute changes, Conjunctiva: no acute changes, no injection. 20:58 ENT: Mouth: is normal, Lips: normal, Oral mucosa: normal, pink and intact, moist. 20:58 Cardiovascular: Rate: normal, Rhythm: regular, Pulses: no pulse deficits are appreciated. 20:58 Respiratory: Exam negative for acute changes, respiratory distress, shortness of breath, Breath sounds: are clear throughout. 20:58 Abdomen/GI: Inspection: abdomen appears normal, Palpation: abdomen is soft and non-tender, in all quadrants. 20:58 Neuro: Exam negative for acute changes, Orientation: is normal, Motor: moves all fours, Sensation: is normal, no obvious gross deficits. Vital Signs: 20:49 BP 148 / 85; Pulse 69; Resp 18; Temp 97.8; Pulse Ox 98% on 3 lpm NC; Pain 0/10; ap3 23:04 BP 137 / 78; Pulse 73; Resp 17; Pulse Ox 97% on 3 lpm NC; ap3 Fitz Coma Score: 20:58 Eye Response: spontaneous(4). Verbal Response: oriented(5). Motor Response: obeys pm1 commands(6). Total: 15. MDM: 20:55 Patient medically screened. pm1 22:10 Data reviewed: vital signs. Data interpreted: Pulse oximetry: on room air is 98 %. pm1 Interpretation: normal. Counseling: I had a detailed discussion with the patient and/or guardian regarding: the historical points, exam findings, and any diagnostic results supporting the discharge/admit diagnosis, radiology results, the need for outpatient follow up, to return to the emergency department if symptoms worsen or persist or if there are any questions or concerns that arise at home. 03/15 20:55 Order name: CT Head Brain wo Cont; Complete Time: 22:06 pm1 Administered Medications: No medications were administered Disposition: 03/16 04:14 Co-signature as Attending Physician, Zena Garg MD. ma2 Disposition Summary: 03/15/21 22:16 Discharge Ordered Location: Home pm1 Problem: new pm1 Symptoms: have improved pm1 Condition: Stable pm1 Diagnosis - Unspecified superficial injury of other part of head, initial encounter pm1 Followup: pm1 - With: Emergency Department - When: As needed - Reason: Worsening of condition Followup: pm1 - With: Private Physician - When: 2 - 3 days - Reason: Recheck today's complaints, Continuance of care, Re-evaluation by your physician Forms: - Medication Reconciliation Form pm1 - Thank You Letter pm1 - Antibiotic Education pm1 - Prescription Opioid Use pm1 Signatures: Dispatcher [employer] EDMarkie Kunz, AXLE INSPECTOR AXLE INSPECTOR pm1 Zena Garg MD MD ma2 Karina Suarez RN RN ap3
[2021-03-16 01:37] VITALS: TEMP 97.8
[2021-03-16 01:39] VITALS: BP 137/78; O2SAT 97
== END 2021-03-16 01:22 | disposition home or self-care (01) ==
LOC: ER 20:47
DX: S00.80XA Unspecified superficial injury of other part of head, initial encounter (principal); S80.211A Abrasion, right knee, initial encounter; W01.198A Fall on same level from slipping, tripping and stumbling with subsequent striking against other object, initial encounter; Y92.129 Unspecified place in nursing home as the place of occurrence of the external cause; I10 Essential (primary) hypertension; F03.90 Unspecified dementia, unspecified severity, without behavioral disturbance, psychotic disturbance, mood disturbance, and anxiety; Z88.0 Allergy status to penicillin; Z88.1 Allergy status to other antibiotic agents; Z88.2 Allergy status to sulfonamides
CPT/HCPCS: 70450; 99284

== ENCOUNTER 2021-04-30 12:02 | Emergency (ER) | payer OTHER ==
--- NOTE | 2021-04-30 15:47 | RAD REPORT ---
EXAM DESCRIPTION: CT - Head Brain Wo Cont - 04/30/2021 3:23 pm CLINICAL HISTORY: Head injury status post fall COMPARISON: March 2021 TECHNIQUE: Computed axial tomography of the head was obtained. IV contrast was not requested. All CT scans are performed using dose optimization technique as appropriate and may include automated exposure control or mA/KV adjustment according to patient size. FINDINGS: An intracranial bleed is not seen . The ventricles are normal in caliber. No extra-axial fluid collection is noted. Moderate low-density areas within periventricular, deep and subcortical white matter likely represent ischemic changes secondary to small vessel disease. 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 Fluid within the sinuses/ mastoids is not seen. IMPRESSION: No acute intracranial abnormality is seen. If patient's symptoms persist MRI of the bra in would be recommended.
--- NOTE | 2021-04-30 15:56 | EDPHYS ---
Physician Documentation [facility] Name: Joleen Boyer Age: 80 yrs Sex: Female : 1940 Arrival Date: 04/30/2021 Time: 12:[address] Private MD: ED Physician Bishop Sun HPI: 04/30 16:05 This 80 yrs old Female presents to ER via Wheelchair with complaints of Fall kb Injury. 16:05 Details of fall: The patient fell from an upright position, while walking. Onset: The kb symptoms/episode began/occurred just prior to arrival. Associated injuries: The patient sustained injury to the head. Severity of symptoms: At their worst the symptoms were very mild, in the emergency department the symptoms are unchanged. The patient has not experienced similar symptoms in the past. The patient has not recently seen a physician. Patient slipped while pushing wheelchair and fell down hitting the ground. Denies LOC. Sent here for evaluation to to head injury. Patient has no complaints.. Historical: - Allergies: 14:25 Cephalexin Monohydrate; kg 14:25 Nitrofurantoin; kg 14:25 PENICILLINS; kg 14:25 Sulfa (Sulfonamide Antibiotics); kg 14:25 Tetracycline; kg - Home Meds: 14:25 diazepam 5 mg Oral tab 1 tab 3 times per day [Active]; albuterol sulfate 2.5 mg /3 mL kg (0.083 %) Inhl nebu [Active]; divalproex 125 mg oral CDRS [Active]; estradiol Oral [Active]; famotidine 20 mg Oral tab 1 tab once daily [Active]; fluoxetine 20 mg Oral cap 1 cap once daily [Active]; levetiracetam 500 mg oral tab 1 tab [Active]; loratadine 10 mg oral tab 1 tab once daily [Active]; losartan 50 mg oral tab 1 tab once daily [Active]; Mapap Arthritis Pain 650 mg oral TbER [Active]; metoprolol tartrate 25 mg Oral tab 1 tab once daily [Active]; Milk of Magnesia 400 mg/5 mL Oral susp 5 mL once daily [Active]; phenytoin Oral [Active]; - PMHx: 14:25 COPD; Dementia; Depression; epilepsy; Hypertension; insomnia; macular degeneration; kg Neuromuscular dysfunction of bladder; stroke; - Immunization history:: Unknown- pt has dementia. - Social history:: Smoking status: Patient denies any tobacco usage or history of. ROS: 16:04 Constitutional: Negative for fever, chills, and weight loss. kb 16:04 All other systems are negative. Exam: 16:04 Constitutional: This is a well developed, well nourished patient who is awake, alert, kb and in no acute distress. Head/Face: Normocephalic, atraumatic. ENT: Moist Mucous membranes Cardiovascular: Regular rate and rhythm with a normal S1 and S2. No gallops, murmurs, or rubs. No pulse deficits. Respiratory: Respirations even and unlabored. No increased work of breathing, no retractions or nasal flaring. Skin: Warm, dry with normal turgor. Normal color. MS/ Extremity: Pulses equal, no cyanosis. Neurovascular intact. Full, normal range of motion. Neuro: Awake and alert, GCS 15, oriented to person, place, time, and situation. Moves all extremities. Normal gait. Psych: Awake, alert, with orientation to person, place and time. Behavior, mood, and affect are within normal limits. Vital Signs: 14:20 BP 109 / 91; Pulse 61; Resp 20; Temp 99.2; Pulse Ox 98% on R/A; Weight 63.5 kg (R); kg Height 5 ft. 6 in. (167.64 cm) (R); Pain 6/10; 15:04 BP 144 / 70; Pulse 58; Resp 16; Pulse Ox 96% ; Pain 0/10; zb 14:20 Body Mass Index 22.60 (63.50 kg, 167.64 cm) kg MDM: 14:55 Patient medically screened. kb 16:03 Data reviewed: vital signs, nurses notes. Data interpreted: Pulse oximetry: on room air kb is 96 %. Interpretation: normal. Counseling: I had a detailed discussion with the patient and/or guardian regarding: the historical points, exam findings, and any diagnostic results supporting the discharge/admit diagnosis, radiology results, the need for outpatient follow up, a family practitioner, to return to the emergency department if symptoms worsen or persist or if there are any questions or concerns that arise at home. 04/30 15:01 Order name: CT Head Brain wo Cont; Complete Time: 15:55 kb Administered Medications: No medications were administered Disposition: 19:28 Co-signature as Attending Physician, Bishop Sun MD I agree with the assessment and kdr plan of care. Disposition Summary: 04/30/21 15:55 Discharge Ordered Location: Home kb Condition: Stable kb Diagnosis - Fall on same level from slipping, tripping and stumbling without subsequent kb striking against object - Unspecified superficial injury of other part of head, initial encounter kb Followup: kb - With: Emergency Department - When: As needed - Reason: Worsening of condition Followup: kb - With: Private Physician - When: 2 - 3 days - Reason: Recheck today's complaints, Continuance of care, Re-evaluation by your physician Discharge Instructions: - Discharge Summary Sheet kb - Fall Prevention in the Home, Adult, [id number] kb Forms: - Medication Reconciliation Form kb - Thank You Letter kb - Antibiotic Education kb - Prescription Opioid Use kb Signatures: Dispatcher [employer] EDMS Linnea Chahal, CHANCEC ADDRESS CHANGE CLERK-Bishop Navas MD MD kdr Graham, Kristen, RN RN kg
--- NOTE | 2021-04-30 15:56 | ER ---
Nurse's Notes [facility] Name: Joleen Boyer Age: 80 yrs Sex: Female : 1940 Arrival Date: 04/30/2021 Time: 12:[address] Private MD: Diagnosis: Fall on same level from slipping, tripping and stumbling without subsequent striking against object;Unspecified superficial injury of other part of head, initial encounter Presentation: 04/30 14:20 Chief complaint: EMS states: Pt fell and hit her head. She was pushing her wheelchair kg and slipped. It was witnessed at [facility] and reports no LOC but did hit her head. Coronavirus screen: Client denies travel out of the [place] in the last 14 days. At this time, unable to obtain information related to travel outside the [place] Ebola Screen: Patient negative for fever greater than or equal to 101.5 degrees Fahrenheit, and additional compatible Ebola Virus Disease symptoms Patient denies exposure to infectious person. Patient denies travel to an Ebola-affected area in the 21 days before illness onset. Initial Sepsis Screen: Does the patient meet any 2 criteria? No. Patient's initial sepsis screen is negative. Does the patient have a suspected source of infection? No. Patient's initial sepsis screen is negative. Risk Assessment: Do you want to hurt yourself or someone else? Patient reports no desire to harm self or others. Onset of symptoms was April 30, 2021 at 11:00. 14:20 Method Of Arrival: Wheelchair kg 14:20 Acuity: YORDY 3 kg Historical: - Allergies: 14:25 Cephalexin Monohydrate; kg 14:25 Nitrofurantoin; kg 14:25 PENICILLINS; kg 14:25 Sulfa (Sulfonamide Antibiotics); kg 14:25 Tetracycline; kg - Home Meds: 14:25 diazepam 5 mg Oral tab 1 tab 3 times per day [Active]; albuterol sulfate 2.5 mg /3 mL kg (0.083 %) Inhl nebu [Active]; divalproex 125 mg oral CDRS [Active]; estradiol Oral [Active]; famotidine 20 mg Oral tab 1 tab once daily [Active]; fluoxetine 20 mg Oral cap 1 cap once daily [Active]; levetiracetam 500 mg oral tab 1 tab [Active]; loratadine 10 mg oral tab 1 tab once daily [Active]; losartan 50 mg oral tab 1 tab once daily [Active]; Mapap Arthritis Pain 650 mg oral TbER [Active]; metoprolol tartrate 25 mg Oral tab 1 tab once daily [Active]; Milk of Magnesia 400 mg/5 mL Oral susp 5 mL once daily [Active]; phenytoin Oral [Active]; - PMHx: 14:25 COPD; Dementia; Depression; epilepsy; Hypertension; insomnia; macular degeneration; kg Neuromuscular dysfunction of bladder; stroke; - Immunization history:: Unknown- pt has dementia. - Social history:: Smoking status: Patient denies any tobacco usage or history of. Screenin:08 Abuse screen: Denies threats or abuse. Denies injuries from another. Nutritional zb screening: No deficits noted. Tuberculosis screening: No symptoms or risk factors identified. Fall Risk Fall in past 12 months (25 points). Secondary diagnosis (15 points) dementia, impaired mobility, No IV (0 pts). Ambulatory Aid- Crutches/Cane/Walker (15 pts). Gait- Weak (10 pts.). Mental Status- Overestimates/Forgets Limitations (15 pts.). Total Fowler Fall Scale indicates High Risk Score (45 or more points). Fall prevention measures have been instituted. Side Rails Up X 2 Placed Close to Nursing Station Frequent Obs/Assessments Occuring As available patient and family educated on Fall Prevention Program and Strategies. Assessment: 15:04 Reassessment: ECP AT BEDSIDE DISCUSSING CARE WITH PATIENT. zb 15:06 General: Appears in no apparent distress. comfortable, Behavior is cooperative, zb anxious. Pain: Denies pain. Neuro: Level of Consciousness is awake, alert, obeys commands, Oriented to person, place, Moves all extremities. Full function. Cardiovascular: Heart tones S1 S2 Capillary refill < 3 seconds Patient's skin is warm and dry. Respiratory: Airway is patent Trachea midline. Derm: Skin is intact, is healthy with good turgor, Skin is dry, Skin is normal. Musculoskeletal: Swelling present in forehead and right evangelical. Injury Description: Head injury sustained to forehead and right evangelical is closed, did not have loss of consciousness, fall. 16:50 Reassessment: Patient appears in no apparent distress at this time. Patient and/or zb family updated on plan of care and expected duration. Pain level reassessed. Report given to ems and longterm. . patient discharge. Vital Signs: 14:20 BP 109 / 91; Pulse 61; Resp 20; Temp 99.2; Pulse Ox 98% on R/A; Weight 63.5 kg (R); kg Height 5 ft. 6 in. (167.64 cm) (R); Pain 6/10; 15:04 BP 144 / 70; Pulse 58; Resp 16; Pulse Ox 96% ; Pain 0/10; zb 14:20 Body Mass Index 22.60 (63.50 kg, 167.64 cm) kg ED Course: 12:11 Patient arrived in ED. as 14:25 Triage completed. kg 14:37 Arm band placed on Patient placed in an exam room, on a stretcher. ll1 14:55 Linnea Chahal FNP-C [facility]. kb 14:55 Bishop Sun MD is Attending Physician. kb 15:04 Jazz Erazo, JON is Primary Nurse. zb 15:08 Patient has correct armband on for positive identification. Pulse ox on. NIBP on. Door zb closed. Noise minimized. 15:23 CT Head Brain wo Cont In Process Unspecified. EDMS 16:55 No provider procedures requiring assistance completed. Patient did not have IV access zb during this emergency room visit. Administered Medications: No medications were administered Outcome: 15:55 Discharge ordered by MD. kb 16:54 Discharged to longterm. Report called to JON Briggs Transfer form completed. zb Valuables list done. 16:54 Condition: good 16:54 Discharge instructions given to patient, Instructed on discharge instructions, follow up and referral plans. Demonstrated understanding of instructions, follow-up care. 17:01 Patient left the ED. zb Signatures: Dispatcher [employer] EDMS Linnea Chahal FNP-C FNP-Ckb Martinez, Amelia as Lewis, Lynsay, RN RN ll1 Jazz Erazo RN RN zEarline Robledo RN RN kg Corrections: (The following items were deleted from the chart) 15:21 15:08 Fall Risk Fall in past 12 months (25 points). Secondary diagnosis (15 points) zb impaired mobility, No IV (0 pts). Ambulatory Aid- Crutches/Cane/Walker (15 pts). Gait- Weak (10 pts.). Mental Status- Oriented to own ability (0 pts). Total Fowler Fall Scale indicates High Risk Score (45 or more points). Fall prevention measures have been instituted. Side Rails Up X 2 Placed Close to Nursing Station Frequent Obs/Assessments Occuring As available patient and family educated on Fall Prevention Program and Strategies. zb
[2021-04-30 18:10] VITALS: TEMP 99.2
[2021-04-30 18:12] VITALS: BP 144/70; O2SAT 96
== END 2021-04-30 17:01 | disposition home or self-care (01) ==
LOC: ER 12:02
DX: S00.80XA Unspecified superficial injury of other part of head, initial encounter (principal); W01.0XXA Fall on same level from slipping, tripping and stumbling without subsequent striking against object, initial encounter; Y93.89 Activity, other specified; I10 Essential (primary) hypertension; F03.90 Unspecified dementia, unspecified severity, without behavioral disturbance, psychotic disturbance, mood disturbance, and anxiety; J44.9 Chronic obstructive pulmonary disease, unspecified; Z88.0 Allergy status to penicillin; Z88.1 Allergy status to other antibiotic agents; Z88.2 Allergy status to sulfonamides; Z88.8 Allergy status to other drugs, medicaments and biological substances
CPT/HCPCS: 70450; 99283

== ENCOUNTER 2021-07-01 11:24 | Inpatient (IN) | payer OTHER ==
[2021-07-01 11:57] LABS: Absolute Lymphocytes (CBC) 1.3 K/uL (0.7-4.9); Basophils % 0.3 % (0-1.3); Hematocrit 36.2 % (36.0-45.0); Lymphocytes % 13.9 % (15.3-44.8); MPV 8.2 fL (7.6-11.3); RBC Red Blood Cell Count 3.67 M/uL (3.86-4.86)
[2021-07-01 11:58] LABS: Protime INR 1.03
[2021-07-01] MEDS ORDERED: LORazepam 2 MG/ML VIAL ONE (12:21)
--- NOTE | 2021-07-01 12:23 | RAD REPORT ---
EXAM DESCRIPTION: CT - Head Brain Wo Cont - 07/01/2021 12:05 pm CLINICAL HISTORY: Alteration of awareness/confusion COMPARISON: April 2021 TECHNIQUE: Computed axial tomography of the head was obtained. IV contrast was not requested. All CT scans are performed using dose optimization technique as appropriate and may include automated exposure control or mA/KV adjustment according to patient size. FINDINGS: An intracranial bleed is not seen . The ventricles are normal in caliber. No extra-axial fluid collection is noted. Moderate low-density areas within periventricular, deep and subcortical white matter likely represent ischemic changes secondary to small vessel disease. 3 centimeter old right cerebral infarction Fluid within the sinuses/ mastoids is not seen. IMPRESSION: No acute intracranial abnormality is seen. If patient's symptoms persist MRI of the bra in would be recommended.
[2021-07-01 12:26] LABS: ALT/SGPT 16 U/L (12-78); AST/SGOT 13 U/L (15-37); Albumin 3.1 g/dL (3.4-5.0); Alkaline Phosphatase 69 U/L (45-117); BUN Blood Urea Nitrogen 12 mg/dL (7-18); Bicarbonate 32 mmol/L (21-32); Bilirubin Direct < 0.1 mg/dL (0-0.2); Bilirubin Total 0.2 mg/dL (0.2-1.0); Glucose Level 101 mg/dL (74-106); Magnesium 2.3 mg/dL (1.8-2.4); NT PRO-BNP 2707 pg/mL (<450); Potassium 4.2 mmol/L (3.5-5.1); Protein, Total 6.8 g/dL (6.4-8.2); Sodium Level 143 mmol/L (136-145); Troponin (Emerg Dept Use Only) 0.16 ng/mL (0.0-0.045)
--- NOTE | 2021-07-01 13:00 | RAD REPORT ---
EXAM DESCRIPTION: RAD - Chest Single View - 07/01/2021 12:34 pm CLINICAL HISTORY: DYSPNEA COMPARISON: Chest Single View dated 03/14/2021; Chest Single View dated 03/13/2021; Chest Single View da luke 03/12/2021; Chest Single View dated 03/11/2021; Chest For Pe Angio dated 03/08/2021 FINDINGS: Lines: None. Lungs: Persistent bilateral irregular opacities Pleural: No significant pleural effusions or pneumothorax. Cardiac: Cardiomegaly. Bones: No acute fractures. Other: IMPRESSION: Bilateral irregular airspace disease that is similar to 03/14/2021. No superimposed acut e process identified. This may represent sequela of a chronic interstitial lung process.
[2021-07-01 13:15] LABS: Urine Blood Trace-lysed (Negative); Urine Glucose Negative (Negative); Urine Protein Trace (Negative); Urine Specific Gravity 1.025 (1.005-1.030); Urine pH 6.5 (5.0-7.0)
[2021-07-01 13:37] LABS: Urine Bacteria <20 /HPF (<20); Urine Mucus SLIGHT /HPF (NONE SEEN); Urine RBC <5 /HPF (NONE SEEN)
--- NOTE | 2021-07-01 13:45 | EDPHYS ---
Physician Documentation [facility] Name: Joleen Boyer Age: 80 yrs Sex: Female : 1940 Arrival Date: 07/01/2021 Time: 11:27 Bed 14 Private MD: ED Physician Bishop Sun HPI: 07/01 13:43 This 80 yrs old Female presents to ER via EMS with complaints of weakness. jr8 14:48 Severity of symptoms: At their worst the symptoms were moderate in the emergency jr8 department the symptoms are unchanged. Patient's baseline: Neuro: alert but confused, Motor: no deficits, Speech: normal. It is unknown whether or not the patient has had similar symptoms in the past. The patient has not recently seen a physician. This is a 80-year-old female patient who presented to emergency room via EMS after being called out for increased altered mentation and leaning to the left side. Patient upon arrival had a temperature 100.6. Patient was alert to person and place at the time but has intermittent confusion.. Historical: - Allergies: 15:36 Cephalexin Monohydrate; tc5 15:36 Keflex; tc5 15:36 Nitrofurantoin; tc5 15:36 Nitrofurantoin Macrocrystal; tc5 15:36 PENICILLINS; tc5 15:36 Sulfa (Sulfonamide Antibiotics); tc5 15:36 Tetracycline; tc5 - Immunization history:: Adult Immunizations up to date. - Social history:: Patient/guardian denies using alcohol, street drugs, IV drugs, tobacco products. ROS: 14:48 Cardiovascular: Negative for chest pain, palpitations, and edema, Respiratory: Negative jr8 for shortness of breath, cough, wheezing, and pleuritic chest pain, Abdomen/GI: Negative for abdominal pain, nausea, vomiting, diarrhea, and constipation. 14:48 Constitutional: Positive for fever. 14:48 Neuro: Positive for altered mental status, weakness. 14:48 All other systems are negative. Exam: 14:48 Radiologist reports: Old infarction without any other acute event jr8 14:48 Eyes: Pupils equal round and reactive to light, extra-ocular motions intact. Lids and lashes normal. Conjunctiva and sclera are non-icteric and not injected. Cornea within normal limits. Periorbital areas with no swelling, redness, or edema. ENT: Nares patent. No nasal discharge, no septal abnormalities noted. Tympanic membranes are normal and external auditory canals are clear. Oropharynx with no redness, swelling, or masses, exudates, or evidence of obstruction, uvula midline. Mucous membranes moist. Neck: Trachea midline, no thyromegaly or masses palpated, and no cervical lymphadenopathy. Supple, full range of motion without nuchal rigidity, or vertebral point tenderness. No Meningismus. Cardiovascular: Regular rate and rhythm with a normal S1 and S2. No gallops, murmurs, or rubs. Normal PMI, no JVD. No pulse deficits. Respiratory: Lungs have equal breath sounds bilaterally, clear to auscultation and percussion. No rales, rhonchi or wheezes noted. No increased work of breathing, no retractions or nasal flaring. Abdomen/GI: Soft, non-tender, with normal bowel sounds. No distension or tympany. No guarding or rebound. No evidence of tenderness throughout. Back: No spinal tenderness. No costovertebral tenderness. Full range of motion. Skin: Warm, dry with normal turgor. Normal color with no rashes, no lesions, and no evidence of cellulitis. MS/ Extremity: Pulses equal, no cyanosis. Neurovascular intact. Full, normal range of motion. Vital Signs: 12:13 BP 150 / 82; Pulse 81; Resp 16; Temp 100.6; Pulse Ox 95% ; Weight 63.5 kg; Height 5 ft. tc5 4 in. (162.56 cm); Pain 0/10; 12:52 BP 114 / 71; Pulse 81; Resp 14; Pulse Ox 96% 4 lpm ; Pain 0/10; tc5 14:02 BP 145 / 84; Pulse 77; Resp 12; Pulse Ox 97% 4 lpm ; Pain 0/10; tc5 15:38 BP 137 / 83; Pulse 82; Resp 14; Pulse Ox 95% ; Pain 0/10; tc5 16:25 BP 140 / 79; Pulse 77; Resp 12; Pulse Ox 95% ; Pain 0/10; tc5 17:44 BP 159 / 95; Pulse 85; Resp 20; Pulse Ox 98% 3 lpm ; Pain 0/10; tc5 19:09 BP 149 / 79; Pulse 81; Resp 18; Pulse Ox 97% on 3 lpm NC; mr2 19:09 Temp 98.2; mr2 12:13 Body Mass Index 24.03 (63.50 kg, 162.56 cm) tc5 NIH Stroke Scale Scores: 14:48 NIHSS Score: 1 jr8 MDM: 11:29 Patient medically screened. jr8 14:48 Data reviewed: vital signs, nurses notes, lab test result(s), EKG, radiologic studies, [facility] [email or web address]] CT scan, plain films. Data interpreted: Pulse oximetry: on room air is 97 %. Interpretation: normal. Counseling: I had a detailed discussion with the patient and/or guardian regarding: the historical points, exam findings, and any diagnostic results supporting the discharge/admit diagnosis, lab results, radiology results, the need for further work-up and treatment in the hospital. 07/01 11:40 Order name: Basic Metabolic Panel; Complete Time: 12:26 [facility] [email or web address]] 07/01 11:40 Order name: CBC with Diff; Complete Time: 12:25 [facility] [[email or web address]] 07/01 11:40 Order name: LFT's; Complete Time: 12: [facility] [[email or web address]] 07/01 11:40 Order name: Magnesium; Complete Time: 12:26 8 07/01 11:40 Order name: NT PRO-BNP; Complete Time: 12:26 8 07/01 11:40 Order name: PT-INR; Complete Time: 12:25 8 07/01 11:40 Order name: Troponin (emerg Dept Use Only); Complete Time: 12:26 8 07/01 11:40 Order name: XRAY Chest (1 view); Complete Time: 13:42 8 07/01 12:26 Order name: Urine Microscopic Only; Complete Time: 13:42 8 07/01 13:15 Order name: Urine Dipstick-Ancillary; Complete Time: 13:42 EDKS 07/01 13:38 Order name: Urine Culture EDKS 07/01 14:29 Order name: SARS-COV-2 RT PCR; Complete Time: 15:24 EDKS 07/01 18:37 Order name: Phenytoin (Dilantin) Level EDKS 07/01 11:40 Order name: EKG; Complete Time: 11:41 8 07/01 11:40 Order name: Cardiac monitoring; Complete Time: 11:43 8 07/01 11:40 Order name: EKG - Nurse/Tech; Complete Time: 11:43 8 07/01 11:40 Order name: IV Saline Lock; Complete Time: 11:43 8 07/01 11:40 Order name: Labs collected and sent; Complete Time: 18:01 8 07/01 11:40 Order name: O2 Per Protocol; Complete Time: 11:43 8 07/01 11:40 Order name: O2 Sat Monitoring; Complete Time: 11:43 8 07/01 11:40 Order name: CT Head Brain wo Cont; Complete Time: 12:25 8 07/01 12:26 Order name: Straight Cath - Urine; Complete Time: 13:22 Administered Medications: 12:00 Drug: LORazepam 1 mg Route: IVP; Site: left antecubital; tc5 12:12 Follow up: Response: No adverse reaction; Anxiety decreased tc5 Disposition: 07/02 00:18 Co-signature as Attending Physician, Bishop Sun MD I agree with the assessment and kdr plan of care. Disposition Summary: 07/01/21 13:44 Hospitalization Ordered Hospitalization Status: Inpatient Admission [facility] [email or web address]] Provider: Abelardo Alvarez [facility] [[email or web address]] Location: Telemetry/MedSurg (Inpatient) [facility] [[email or web address]] Condition: Fair jr Problem: new jr Symptoms: are unchanged [facility] [email or web address]] Bed/Room Type: Standard [facility] [email or web address]] Room Assignment: 423(07/01/21 18:41) dw Diagnosis - Fever, unspecified jr8 - Subsequent non-ST elevation (NSTEMI) myocardial infarction [facility] [email or web address]] Forms: - Medication Reconciliation Form jr8 - SBAR form jr8 NIH Stroke Scale - NIH Stroke Score Date: 07/01/2021 Time: 14:48 Total Score = 1 1a. Level of Consciousness (LOC) - 0(Alert) 1b. Level of Consciousness (LOC) (Month \T\ Age) - 0(Both) 1c. LOC Commands (Open \T\ Closes Eyes/Liquor Grinding Mill Operator) - 0(Both) 2. Best Gaze (Lateral Gaze Paresis) - 0(Normal) 3. Visual Field Loss - 0(No visual loss) 4. Facial Palsy - 0(Normal) 5a. Left Arm: Motor (10-second hold) - 0(No drift) 5b. Right Arm: Motor (10-second hold) - 0(No drift) 6a. Left Leg: Motor (5-second hold - always test supine) - 0(No drift) 6b. Right Leg: Motor (5-second hold - always test supine) - 0(No drift) 7. Limb Ataxia (finger/nose \T\ heel/pearson - test with eyes open) - 0(Absent) 8. Sensory Loss (pinprick arms/legs/face) - 0(Normal) 9. Best Language: Aphasia (description/naming/reading) - 0(No aphasia) 10. Dysarthria (speech clarity - read or repeat words) - 1(Mild to Moderate) 11. Extinction and Inattention (visual/tactile/auditory/spatial/personal) - 0(No abnormality) Initials: jr8 Signatures: Dispatcher [employer] EDMS Faith Wynn RN RN dw Bishop Sun MD MD kdr Roszak, Josh, PA PA jr8 Cande Shah RN RN tc5 Corrections: (The following items were deleted from the chart) 07/01 14:29 13:46 CORONAVIRUS+MR.LAB.BRZ ordered. EDMS EDMS 15:37 15:36 PMHx: COPD; tc5 tc5 15:37 15:36 PMHx: Depression; tc5 tc5 15:37 15:36 PMHx: Hypertension; tc5 tc5 15:37 15:36 PMHx: stroke; tc5 tc5 15:37 15:36 PMHx: macular degeneration; tc5 tc5 15:37 15:36 PMHx: Neuromuscular dysfunction of bladder; tc5 tc5 15:37 15:36 PMHx: epilepsy; tc5 tc5 15:37 15:36 PMHx: Dementia; tc5 tc5 15:37 15:36 PMHx: insomnia; tc5 tc5 18:35 13:44 jr8 dw 18:41 18:35 412 dw dw
--- NOTE | 2021-07-01 13:45 | ER ---
Nurse's Notes [facility] Name: Joleen Boyer Age: 80 yrs Sex: Female : 1940 Arrival Date: 07/01/2021 Time: 11:27 Bed 14 Private MD: Diagnosis: Fever, unspecified;Subsequent non-ST elevation (NSTEMI) myocardial infarction Presentation: 07/01 12:53 Chief complaint: EMS states: AMS. Leaning to the left side and left side visual field tc5 is impaired. Pt LKN was 06/30/21 at noon. pt has HX of stroke. Coronavirus screen: At this time, the client does not indicate any symptoms associated with coronavirus-19. Ebola Screen: No symptoms or risks identified at this time. Initial Sepsis Screen: Does the patient meet any 2 criteria? Altered Mental Status. Risk Assessment: Do you want to hurt yourself or someone else? Unable to obtain. 12:53 Method Of Arrival: EMS tc5 12:53 Acuity: YORDY 2 tc5 Triage Assessment: 15:33 General: Appears uncomfortable, Behavior is calm, cooperative, Possible stroke.. tc5 Historical: - Allergies: 15:36 Cephalexin Monohydrate; tc5 15:36 Keflex; tc5 15:36 Nitrofurantoin; tc5 15:36 Nitrofurantoin Macrocrystal; tc5 15:36 PENICILLINS; tc5 15:36 Sulfa (Sulfonamide Antibiotics); tc5 15:36 Tetracycline; tc5 - Immunization history:: Adult Immunizations up to date. - Social history:: Patient/guardian denies using alcohol, street drugs, IV drugs, tobacco products. Screenin:58 Abuse screen: Denies threats or abuse. Denies injuries from another. Nutritional tc5 screening: No deficits noted. Tuberculosis screening: No symptoms or risk factors identified. Fall Risk Gait- Weak (10 pts.). Mental Status-. Assessment: 12:57 Reassessment: No changes from previously documented assessment. General: Appears Pt tc5 denies pain, alert to self only, pt is leaning to the left and left eye is squinted.. Pain: Denies pain. 12:58 Neuro: Level of Consciousness is awake, alert, Oriented to person, Commission Associate are equal tc5 bilaterally Moves all extremities. Full function Gait is Speech is normal, sqinting of the left eye.. Pupils are PERRLA, Intact. Cardiovascular: No deficits noted. Respiratory: pt on home 02 4 LPM NC. GI: No deficits noted. 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 pt cont to rest, VSS.. 17:33 General: Pt 02 was off, she desat to the 50's rapidly, recovered slowly with tc5 reapplication of 02. currently 98% on 3 LPM. pt seems relaxed, alert to self, asking why she is here repeatedly, reiterated where she is and why she is here. pt repositioned, states she is comfortable, encouraged her to get some rest. . 17:38 General:. tc5 17:41 General: Letty YBARRA from [facility] called for updated, update given, i asked tc5 Letty if pt has HX of quick desat if not on 02, Letty confirms pt desats quickly without 02.. 19:55 General: Appears Behavior is agitated, combative. General: becoming combative; E. cc4 [place] notified per JON Watt with new order rec'd; Haldol 2 mg given slow IVP; O2 intact \T\ 3L/NBP; O2 sat 97%; VSS; # 20 g saline lock intact left AC with no s/SX's of infection/infiltration noted of site; report telephoned to JON Dorantes; transported to # 423 via stretcher; SR's up x 2; no resp distress noted.. Neuro: No deficits noted. Level of Consciousness is awake, confused, Oriented to person. Vital Signs: 12:13 BP 150 / 82; Pulse 81; Resp 16; Temp 100.6; Pulse Ox 95% ; Weight 63.5 kg; Height 5 ft. tc5 4 in. (162.56 cm); Pain 0/10; 12:52 BP 114 / 71; Pulse 81; Resp 14; Pulse Ox 96% 4 lpm ; Pain 0/10; tc5 14:02 BP 145 / 84; Pulse 77; Resp 12; Pulse Ox 97% 4 lpm ; Pain 0/10; tc5 15:38 BP 137 / 83; Pulse 82; Resp 14; Pulse Ox 95% ; Pain 0/10; tc5 16:25 BP 140 / 79; Pulse 77; Resp 12; Pulse Ox 95% ; Pain 0/10; tc5 17:44 BP 159 / 95; Pulse 85; Resp 20; Pulse Ox 98% 3 lpm ; Pain 0/10; tc5 19:09 BP 149 / 79; Pulse 81; Resp 18; Pulse Ox 97% on 3 lpm NC; mr2 19:09 Temp 98.2; mr2 12:13 Body Mass Index 24.03 (63.50 kg, 162.56 cm) tc5 NIH Stroke Scale Scores: 14:48 NIHSS Score: 1 jr8 ED Course: 11:27 Patient arrived in ED. em1 11:28 Connor Ko PA is PHCP. jr8 11:28 Bishop Sun MD is Attending Physician. jr8 11:32 Cande Shah RN is Primary Nurse. tc5 12:05 CT Head Brain wo Cont In Process Unspecified. EDMS 12:34 XRAY Chest (1 view) In Process Unspecified. EDMS 12:56 Triage completed. tc5 12:58 Inserted saline lock: 20 gauge in left antecubital area, using aseptic technique. Blood tc5 collected. 13:22 Straight cath inserted, using sterile technique, 14 Fr. Specimen obtained. Returned gd nolberto urine. Patient tolerated well. 13:23 Urine Microscopic Only Sent. gd 13:44 Abelardo Alvarez is Hospitalizing Provider. jr8 19:55 No provider procedures requiring assistance completed. cc4 19:55 Patient has correct armband on for positive identification. Placed in gown. Bed in low cc4 position. Call light in reach. Side rails up X2. 20:08 Arm band placed on. cc4 Administered Medications: 12:00 Drug: LORazepam 1 mg Route: IVP; Site: left antecubital; tc5 12:12 Follow up: Response: No adverse reaction; Anxiety decreased tc5 Outcome: 13:44 Decision to Hospitalize by Provider. jr8 19:55 Condition: stable cc4 19:55 Admitted to Med/surg accompanied by tech, via stretcher, room 423, with oxygen, Report cc4 called to JON Dorantes. 20:14 Patient left the ED. cc4 NIH Stroke Scale - NIH Stroke Score Date: 07/01/2021 Time: 14:48 Total Score = 1 1a. Level of Consciousness (LOC) - 0(Alert) 1b. Level of Consciousness (LOC) (Month \T\ Age) - 0(Both) 1c. LOC Commands (Open \T\ Closes Eyes/Cashier Assistant) - 0(Both) 2. Best Gaze (Lateral Gaze Paresis) - 0(Normal) 3. Visual Field Loss - 0(No visual loss) 4. Facial Palsy - 0(Normal) 5a. Left Arm: Motor (10-second hold) - 0(No drift) 5b. Right Arm: Motor (10-second hold) - 0(No drift) 6a. Left Leg: Motor (5-second hold - always test supine) - 0(No drift) 6b. Right Leg: Motor (5-second hold - always test supine) - 0(No drift) 7. Limb Ataxia (finger/nose \T\ heel/pearson - test with eyes open) - 0(Absent) 8. Sensory Loss (pinprick arms/legs/face) - 0(Normal) 9. Best Language: Aphasia (description/naming/reading) - 0(No aphasia) 10. Dysarthria (speech clarity - read or repeat words) - 1(Mild to Moderate) 11. Extinction and Inattention (visual/tactile/auditory/spatial/personal) - 0(No abnormality) Initials: amira Signatures: Dispatcher [employer] Brian Michaud em1 Connor Ko PA PA jr8 Hetal Barnhart RN RN cc4 Ward Morgan RN RN mr2 Cande Shah RN RN tc5 Justin Lara Corrections: (The following items were deleted from the chart) 15:37 15:36 PMHx: COPD; tc5 tc5 15:37 15:36 PMHx: Depression; tc5 tc5 15:37 15:36 PMHx: Hypertension; tc5 tc5 15:37 15:36 PMHx: stroke; tc5 tc5 15:37 15:36 PMHx: macular degeneration; tc5 tc5 15:37 15:36 PMHx: Neuromuscular dysfunction of bladder; tc5 tc5 15:37 15:36 PMHx: epilepsy; tc5 tc5 15:37 15:36 PMHx: Dementia; tc5 tc5 15:37 15:36 PMHx: insomnia; tc5 tc5
--- NOTE | 2021-07-01 16:21 | P.HP ---
Certification for Inpatient Patient admitted to: Inpatient With expected LOS: >2 Midnights Practitioner: I am a practitioner with admitting privileges, knowledge of patient current condition, hospital course, and medical plan of care. Services: Services provided to patient in accordance with Admission requirements found in Title 42 Section 412.3 of the Code of Federal Regulations Patient History Date of Service: 07/01/21 Reason for admission: Altered mental status and generalized weakness History of Present Illness: 80-year-old woman with a history hypertension, seizure disorder, neurogenic bladder presented to the emergency department with a complaint of generalized weakness. Patient endorsed dysuria. History is limited because patient was given Ativan and was somnolent so I could not obtain any further history. Workup in the emergency department revealed mildly elevated troponin, EKG showing T-wave inversions in V1 V2 and V3. UA suggest the presence of UTI. [facility] st x-ray demonstrated chronic interstitial changes. Fever 100.6 recorded in the ED. Does not meet criteria for sepsis. Patient hospitalized for further management. Allergies nitrofurantoin macrocrystal [From Macrobid] Allergy (Severe, Verified 07/07/20 11:11) Itching/Hives/Rash cephalexin monohydrate [From Keflex] Allergy (Verified 07/07/20 11:11) Hives nitrofurantoin [From Macrobid] Allergy (Verified 07/07/20 11:11) Unknown Penicillins Allergy (Verified 07/07/20 11:11) Hives tetracycline [Tetracycline] Allergy (Verified 07/07/20 11:11) Hives Sulfa (Sulfonamid Allergy (Uncoded 11/28/17 02:38) Unknown tetracycline Allergy (Uncoded 11/28/17 02:37) Unknown Home Medications: Fluoxetine HCl [Prozac] 20 mg PO DAILY 30 Days #30 capsule 08/20/20 Sodium Chloride Tab [Sodium Chloride*] 1 gm PO BIDWM 14 Days #28 tab 08/20/20 Trazodone [Desyrel*] 50 mg PO BEDTIME PRN PRN 30 Days #30 tablet 08/20/20 Acetaminophen [Tylenol Arthritis] 650 mg PO Q8HP PRN 03/09/21 Divalproex [Depakote Sprinkle*] 240 mg PO TID 03/09/21 Estradiol [Estrace] 1 appl VG DAILY 03/09/21 Famotidine [Pepcid*] 20 mg PO DAILYPRN PRN 03/09/21 Loratadine [Claritin*] 10 mg PO DAILY 03/09/21 Magnesium Hydroxide [Milk of Magnesia] 5 ml PO Q8HP PRN 03/09/21 Phenytoin Sodium Extended [Phenytek] 300 mg PO BEDTIME 03/09/21 levETIRAcetam [Levetiracetam] 500 mg PO BID 03/09/21 Albuterol Neb [Proventil 0.083% Neb Soln] 2.5 mg NEB [id number] #30 amp 03/14/21 Furosemide [Lasix] 20 mg PO DAILY #30 tab 03/14/21 Losartan Potassium [Cozaar*] 50 mg PO DAILY #30 tablet 03/14/21 Metoprolol Tartrate [Lopressor*] 25 mg PO BID 6AM 6PM #60 tab 03/14/21 Sodium Chloride Tab [Sodium Chloride*] 2 gm PO BIDWM #60 tab 03/14/21 Spironolactone [Aldactone*] 25 mg PO DAILY #30 tab 03/14/21 levoFLOXacin [Levaquin] 500 mg PO DAILY #5 tab 03/14/21 predniSONE [Prednisone*] 20 mg PO BID #11 tab 03/14/21 - Past Medical/Surgical History Diabetic: No -: Seizure disorder -: Neurogenic bladder -: Patient self caths -: Hypertension -: dementia -: tonsillectomy -: hysterectomy -: left femur fx Psychosocial/ Personal History: The patient is a . She has 2 children. She is living in a senior care - Social History Alcohol use: No CD- Drugs: No Caffeine use: Yes Review of Systems is unable to be obtained Physical Examination - Physical Exam General: In no apparent distress, Other HEENT: Atraumatic, PERRLA, Mucous membr. moist/pink, EOMI, Sclerae nonicteric Neck: Supple, JVD not distended Respiratory: Clear to auscultation bilaterally, Normal air movement Cardiovascular: No edema, Regular rate/rhythm, Normal S1 S2, No murmurs Capillary refill: <2 Seconds Gastrointestinal: Normal bowel sounds, Soft and benign, Non-distended, No tenderness Musculoskeletal: No swelling, No tenderness Integumentary: No rashes, No erythema, No cyanosis Neurological: Other (No focal motor deficit. Somnolent. Easy arousable and obey commands.) - Studies Laboratory Data (last 24 hrs) 07/01/21 11:40: PT 11.9, INR 1.03 07/01/21 11:40: WBC 9.70, Hgb 11.8 L, Hct 36.2, Plt Count 295 07/01/21 11:40: Sodium 143, Potassium 4.2, BUN 12, Creatinine 0.58, Glucose 101, Magnesium 2.3, Total Bilirubin 0.2, AST 13 L, ALT 16, Alkaline Phosphatase 69 Assessment and Plan - Problems (Diagnosis) (1) Elevated troponin Current Visit: Yes Status: Acute (2) Acute cystitis without hematuria Current Visit: No Status: Acute (3) Altered mental status Current Visit: No Status: Acute (4) Seizure disorder Onset Date: 11/28/17 Current Visit: No Status: Chronic (5) Neurogenic bladder Onset Date: 11/28/17 Current Visit: No Status: Chronic (6) Chronic interstitial lung disease Current Visit: Yes Status: Chronic (7) Metabolic encephalopathy Current Visit: No Status: Acute - Plan Admit patient to the medical floor. AMS/UTI/neurogenic bladder -patient with penicillin, cephalosporin and tetracycline. -IV Levaquin for UTI -check lactic acid, obtain blood cultures -follow urine culture. -PT evaluation. -hydrate with IV fluid. Elevated troponin/abnormal EKG -patient with a history of troponin elevation. -trend troponin -serial EKG -start aspirin -obtain echocardiogram. -check lipid profile. -further management pending troponin trend. Seizure disorder -continue home medications. -check Dilantin and Keppra level to evaluate for toxicity. -seizure precautions Chronic interstitial lung disease -stable. -chest x-ray reported no new infiltrate. -she started on antibiotics. -monitor. - Advance Directives Does patient have a Living Will: Yes Does patient have a Durable POA for Healthcare: Yes
[2021-07-01] MEDS ORDERED: ONDANSETRON 4 MG/2 ML VIAL IV PRN (19:53)
[2021-07-01] MEDS: D5 0.9 NS 1,000 ML IV SCH (19:53)
[2021-07-01] MEDS ORDERED: ACETAMINOPHEN 500 MG TAB PO PRN (19:53)
[2021-07-01] MEDS ORDERED: HALOPERIDOL LACT 5 MG/ML INJ IV ONE (19:56)
[2021-07-01] MEDS ORDERED: HALOPERIDOL LACT 5 MG/ML INJ ONE (20:21)
[2021-07-01 21:20] LABS: Troponin I 0.28 ng/mL (0.0-0.045)
[2021-07-01] MEDS: Levofloxacin 750mg IV 750 MG/150 ML BAG IV SCH (21:29)
[2021-07-02] MEDS ORDERED: LORazepam 2 MG/ML VIAL IV ONE (01:18)
[2021-07-02 05:06] VITALS: BMI 24.9
[2021-07-02 07:13] LABS: Absolute Lymphocytes (CBC) 1.1 K/uL (0.7-4.9); Basophils % 0.1 % (0-1.3); Hematocrit 41.7 % (36.0-45.0); Lymphocytes % 10.1 % (15.3-44.8); MPV 7.8 fL (7.6-11.3); RBC Red Blood Cell Count 4.26 M/uL (3.86-4.86)
[2021-07-02 07:33] LABS: Magnesium 2.2 mg/dL (1.8-2.4); Phosphorus 3.3 mg/dL (2.5-4.9); Potassium 3.8 mmol/L (3.5-5.1)
[2021-07-02 07:35] LABS: Thyroid Stimulating Hormone 5.94 uIU/mL (0.360-3.740)
[2021-07-02] MEDS: ASPIRIN EC 81 MG TAB PO SCH ×2 (07:52→07:55)
[2021-07-02] MEDS: ENOXAPARIN 40 MG/0.4 ML SQ SCH (07:52)
[2021-07-02] MEDS ORDERED: HALOPERIDOL LACT 5 MG/ML INJ IV ONE (08:42)
[2021-07-02] MEDS: D5 0.9 NS 1,000 ML IV SCH ×3 (09:13→22:33)
[2021-07-02] MEDS ORDERED: KCL 20 MEQ/100 mL IVPB 20 MEQ/100 ML BAG IV SCH (10:00)
--- NOTE | 2021-07-02 15:17 | P.PN ---
Subjective Date of Service: 07/02/21 Chief Complaint: Altered mental status and generalized weakness Patient is confused and cannot give any subjective complain. Troponin trended up slightly. No recorded fever. Urine culture has yielded no growth. Physical Examination - Vital Signs Temperature: 98.1 F Blood Pressure: 140/75 Pulse: 102 Respirations: 18 Pulse Ox (%): 96 - Physical Exam General: Confused HEENT: Mucous membr. moist/pink Neck: JVD not distended Respiratory: Clear to auscultation bilaterally, Normal air movement Cardiovascular: Regular rate/rhythm, Other (Tachycardia) Gastrointestinal: Soft and benign, Non-distended, No tenderness Musculoskeletal: No swelling, No tenderness Integumentary: No rashes, No erythema Neurological: Other (No focal motor deficit.) Assessment And Plan - Current Problems (Diagnosis) (1) Elevated troponin Current Visit: Yes Status: Acute (2) Acute cystitis without hematuria Current Visit: No Status: Acute (3) Altered mental status Current Visit: No Status: Acute (4) Seizure disorder Onset Date: 11/28/17 Current Visit: No Status: Chronic (5) Neurogenic bladder Onset Date: 11/28/17 Current Visit: No Status: Chronic (6) Chronic interstitial lung disease Current Visit: Yes Status: Chronic (7) Metabolic encephalopathy Current Visit: No Status: Acute - Plan AMS/UTI/neurogenic bladder/dementia -patient with penicillin, cephalosporin and tetracycline. -urine culture: No growth. -continue IV Levaquin for UTI -blood cultures pending -PT to evaluate. -continue IV fluid -Haldol IV p.r.n. for agitation. Elevated troponin/abnormal EKG -patient with a history of troponin elevation. -troponin trended up slightly to 0.32 -continue aspirin -Echocardiogram is pending. -LDL is elevated. Start lipitor -cardiology Consult Seizure disorder -Dilantin level is low -home Dilantin dose resumed -will give a loading dose. -Check Depakote and Keppra levels. -continue home home dose Depakote and Keppra for now. -seizure precautions Chronic interstitial lung disease -stable. -chest x-ray reported no new infiltrate. -Continue antibiotics. -monitor.
[2021-07-02] MEDS ORDERED: MAGNESIUM HYDROXIDE 8% 30 ML PO PRN (15:22)
[2021-07-02] MEDS ORDERED: FAMOTIDINE 20 MG TAB PO PRN (15:22)
[2021-07-02] MEDS: HALOPERIDOL LACT 5 MG/ML INJ IV PRN (16:24)
[2021-07-02] MEDS: SODIUM CHLORIDE 1 GM TAB PO SCH (16:53)
[2021-07-02] MEDS: METOPROLOL TAR 25 MG TAB PO SCH (16:54)
[2021-07-02] MEDS: Levofloxacin 750mg IV 750 MG/150 ML BAG IV SCH (20:40)
[2021-07-02] MEDS: TRAZODONE 50 MG TABLET PO SCH (20:42)
[2021-07-02] MEDS: PHENYTOIN ER 100 MG CAP PO SCH (20:43)
[2021-07-02] MEDS: OLANZapine 2.5 MG TAB PO SCH (20:44)
[2021-07-02] MEDS: DIVALPROEX DR 500MG TAB PO SCH (20:45)
[2021-07-02] MEDS: levETIRAcetam 500 MG TAB PO SCH (20:45)
[2021-07-02] MEDS ORDERED: HOME MED 1 EA UNK (Trazodone Hcl [Trazodone Hcl] 100 MG Tablet) PO SCH (21:00)
[2021-07-02] MEDS ORDERED: TRAZODONE 150 MG TAB PO SCH (21:00)
[2021-07-02] MEDS ORDERED: PHENYTOIN SODIUM 300 MG PO SCH (21:00)
[2021-07-02] MEDS ORDERED: TRAZODONE 50 MG TABLET PO SCH (21:00)
[2021-07-02] MEDS ORDERED: HOME MED 1 EA UNK (Olanzapine [Olanzapine] 5 MG Tablet) PO SCH (21:00)
--- NOTE | 2021-07-02 21:32 | CON ---
Date of Consultation: 07/02/2021 Reason For Consultation: Elevated troponin. History Of Present Illness: This is a 80-year-old female with history of seizure disorder, hypertens ion, brought in for generalized weakness, dysuria. Denies having any chest pain. She is altered and confused. I saw her by bedside and could not get a very good history due to altered mental conditio n. Past Medical History: As outlined above in the HPI. Medications: Refer to reconciliation sheet for detailed list. Allergies: A LONG LIST OF ALLERGY WAS REVIEWED. Family History: No mention of coronary artery disease or cancer. Social History: She does not smoke or drink. Does not use any drugs. Review of Systems: All systems reviewed and they were negative except as mentioned in the HPI. Physical Examination: Vital Signs: Reviewed. Head and Neck: Pupils are equal, reactive to light. Intact eye movements. No JVD. No cervical lym phadenopathy. Neck is supple. Thyroid is not enlarged. Lungs: Clear to auscultation bilaterally. No rhonchi, rales, or crackles. No accessory muscle use. Heart: Regular rate and rhythm. No extra sounds. Abdomen: Soft, nontender. Bowel sounds positive. No organomegaly. No masses or hernia. No rigidi ty or rebound. Extremities: No clubbing or cyanosis. Intact pulses. Skin: No rashes. Neurologic: Alert, awake, oriented x3. No acute focal deficits appreciated. Investigations: Troponin 0.16 to 0.28, then 0.32. Assessment And Recommendations: Elevated troponin. No chest pain. EKG without acute specific abnor malities. This could be demand ischemia. On echocardiogram, the ejection fraction is normal. In fa ct, the left ventricle is hyperdynamic. Continue aspirin and trend troponin 1 more set. Plan: For a Lexiscan nuclear stress test to further evaluate the cardiac status once clinically and hemodynamically stable. Thank you for the consult. /LATRICIA Voice ID: [id number] Report ID: [id number]
[2021-07-03] MEDS: METOPROLOL TAR 25 MG TAB PO SCH ×2 (05:29→17:37)
[2021-07-03] MEDS: HALOPERIDOL LACT 5 MG/ML INJ IV PRN (05:35)
[2021-07-03 05:40] LABS: Absolute Lymphocytes (CBC) 1.6 K/uL (0.7-4.9); Basophils % 0.6 % (0-1.3); Hematocrit 37.9 % (36.0-45.0); Lymphocytes % 18.2 % (15.3-44.8); MPV 8.1 fL (7.6-11.3); RBC Red Blood Cell Count 3.92 M/uL (3.86-4.86)
[2021-07-03 06:17] LABS: BUN Blood Urea Nitrogen 4 mg/dL (7-18); Bicarbonate 29 mmol/L (21-32); Glucose Level 102 mg/dL (74-106); Potassium 3.9 mmol/L (3.5-5.1); Sodium Level 140 mmol/L (136-145)
[2021-07-03] MEDS: OLANZapine 2.5 MG TAB PO SCH ×2 (08:45→19:32)
[2021-07-03] MEDS: ASPIRIN EC 81 MG TAB PO SCH (08:45)
[2021-07-03] MEDS: DIVALPROEX DR 500MG TAB PO SCH ×2 (08:45→19:32)
[2021-07-03] MEDS: levETIRAcetam 500 MG TAB PO SCH ×2 (08:46→19:32)
[2021-07-03] MEDS: LORATADINE 10 MG TAB PO SCH (08:46)
[2021-07-03] MEDS: LOSARTAN POTASSIUM 50 MG TABLET PO SCH (08:46)
[2021-07-03] MEDS: ENOXAPARIN 40 MG/0.4 ML SQ SCH (08:47)
[2021-07-03] MEDS: SODIUM CHLORIDE 1 GM TAB PO SCH ×2 (08:48→17:38)
[2021-07-03] MEDS ORDERED: HOME MED 1 EA UNK (Losartan Potassium [Losartan Potassium] 25 MG Tablet) PO SCH (09:00)
[2021-07-03] MEDS ORDERED: POTASSIUM CL SA 10 MEQ TAB PO ONE (09:00)
--- NOTE | 2021-07-03 14:17 | P.PN ---
Subjective Date of Service: 07/03/21 Chief Complaint: Altered mental status and generalized weakness Patient is dementia and confused at baseline. No recorded fever. Physical Examination - Vital Signs Temperature: 97.8 F Blood Pressure: 139/82 Pulse: 77 Respirations: 16 Pulse Ox (%): 95 - Physical Exam General: In no apparent distress, Confused Neck: JVD not distended Respiratory: Clear to auscultation bilaterally, Normal air movement Cardiovascular: No edema, Regular rate/rhythm, Normal S1 S2 Gastrointestinal: Soft and benign, Non-distended Musculoskeletal: No swelling Integumentary: No rashes Neurological: Normal strength at 5/5 x4 extr - Studies Microbiology Data (last 24 hrs): 07/01/21 13:15 Clean Catch Urine [place] Count - Final <10,000 CFU/ML. 07/01/21 13:15 Clean Catch Urine - Final MIXED SUZAN. Assessment And Plan - Current Problems (Diagnosis) (1) Elevated troponin Current Visit: Yes Status: Acute (2) Acute cystitis without hematuria Current Visit: No Status: Acute (3) Altered mental status Current Visit: No Status: Acute (4) Seizure disorder Onset Date: 11/28/17 Current Visit: No Status: Chronic (5) Neurogenic bladder Onset Date: 11/28/17 Current Visit: No Status: Chronic (6) Chronic interstitial lung disease Current Visit: Yes Status: Chronic (7) Metabolic encephalopathy Current Visit: No Status: Acute - Plan AMS/UTI/neurogenic bladder/dementia -patient with penicillin, cephalosporin and tetracycline. -urine culture: Mixed growth. -continue IV Levaquin for UTI. Patient to complete at least 3 days of treatment. -blood cultures: No growth to date. -PT to evaluate. -continue IV fluid -Haldol IV p.r.n. for agitation. Elevated troponin/abnormal EKG -patient with a history of troponin elevation. -troponin trended up to 0.32 -continue aspirin -Echocardiogram is pending. -cardiology input appreciated. -Dr. Esposito recommend stress test on Monday -LDL is elevated. Lipitor. Seizure disorder -Dilantin level is low -home Dilantin dose resumed -s/p Dilantin loading dose -continue home home dose Depakote and Keppra.. -seizure precautions. Chronic interstitial lung disease -stable. -chest x-ray reported no new infiltrate. -Continue antibiotics. -monitor. Dementia with behavioral disturbance -Haldol p.r.n. for agitation.
[2021-07-03] MEDS: PHENYTOIN ER 100 MG CAP PO SCH (19:32)
[2021-07-03] MEDS: ATORVASTATIN 40 MG TAB PO SCH (19:33)
[2021-07-03] MEDS: TRAZODONE 50 MG TABLET PO SCH (19:35)
[2021-07-04] MEDS: METOPROLOL TAR 25 MG TAB PO SCH ×2 (04:41→17:54)
[2021-07-04 06:16] LABS: Absolute Lymphocytes (CBC) 1.6 K/uL (0.7-4.9); Basophils % 0.4 % (0-1.3); Hematocrit 37.1 % (36.0-45.0); Lymphocytes % 19.5 % (15.3-44.8); MPV 7.9 fL (7.6-11.3); RBC Red Blood Cell Count 3.78 M/uL (3.86-4.86)
[2021-07-04 06:28] LABS: BUN Blood Urea Nitrogen 6 mg/dL (7-18); Bicarbonate 30 mmol/L (21-32); Glucose Level 100 mg/dL (74-106); Potassium 4.2 mmol/L (3.5-5.1); Sodium Level 141 mmol/L (136-145)
[2021-07-04] MEDS: SODIUM CHLORIDE 1 GM TAB PO SCH ×2 (08:55→17:55)
[2021-07-04] MEDS: ASPIRIN EC 81 MG TAB PO SCH (08:56)
[2021-07-04] MEDS: levoFLOXacin 750 MG TAB PO SCH (08:56)
[2021-07-04] MEDS: levETIRAcetam 500 MG TAB PO SCH ×2 (08:56→20:08)
[2021-07-04] MEDS: LORATADINE 10 MG TAB PO SCH (08:57)
[2021-07-04] MEDS: OLANZapine 2.5 MG TAB PO SCH ×2 (08:57→20:08)
[2021-07-04] MEDS: ENOXAPARIN 40 MG/0.4 ML SQ SCH (08:57)
[2021-07-04] MEDS: LOSARTAN POTASSIUM 50 MG TABLET PO SCH (08:57)
[2021-07-04] MEDS: DIVALPROEX DR 500MG TAB PO SCH ×2 (08:58→20:08)
--- NOTE | 2021-07-04 13:09 | P.PN ---
Subjective Date of Service: 07/04/21 Chief Complaint: Altered mental status and generalized weakness Patient is dementia and confused at baseline. She has no new complain. Physical Examination - Vital Signs Temperature: 97.1 F Blood Pressure: 132/71 Pulse: 69 Respirations: 20 Pulse Ox (%): 97 - Physical Exam General: In no apparent distress, Confused Neck: JVD not distended Respiratory: Clear to auscultation bilaterally, Normal air movement Cardiovascular: No edema, Regular rate/rhythm, Normal S1 S2 Gastrointestinal: Soft and benign, Non-distended Musculoskeletal: No swelling Integumentary: No rashes Neurological: Normal strength at 5/5 x4 extr - Studies Microbiology Data (last 24 hrs): 07/01/21 13:15 Clean Catch Urine [place] Count - Final <10,000 CFU/ML. 07/01/21 13:15 Clean Catch Urine - Final MIXED SUZAN. Assessment And Plan - Current Problems (Diagnosis) (1) Elevated troponin Current Visit: Yes Status: Acute (2) Acute cystitis without hematuria Current Visit: No Status: Acute (3) Altered mental status Current Visit: No Status: Acute (4) Seizure disorder Onset Date: 11/28/17 Current Visit: No Status: Chronic (5) Neurogenic bladder Onset Date: 11/28/17 Current Visit: No Status: Chronic (6) Chronic interstitial lung disease Current Visit: Yes Status: Chronic (7) Metabolic encephalopathy Current Visit: No Status: Acute - Plan AMS/UTI/neurogenic bladder/dementia -patient with penicillin, cephalosporin and tetracycline. -urine culture: Mixed growth. -continue IV Levaquin for UTI. Patient completed 3 days of treatment. -blood cultures: No growth to date. -IV fluid discontinued -Haldol IV p.r.n. for agitation. Elevated troponin/abnormal EKG -patient with a history of troponin elevation. -troponin trended up to 0.32 -continue aspirin -Echocardiogram is pending. -cardiology input appreciated. -Dr. Esposito recommend stress test on Monday -LDL is elevated. Continue Lipitor. Seizure disorder -Dilantin level is low -home Dilantin dose resumed -s/p Dilantin loading dose -continue home home dose Depakote and Keppra.. -seizure precautions. Chronic interstitial lung disease -stable. -chest x-ray reported no new infiltrate. -monitor. Dementia with behavioral disturbance -Haldol p.r.n. for agitation.
--- NOTE | 2021-07-04 17:10 | RAD REPORT ---
EXAM DESCRIPTION: RAD - Chest Single View - 07/04/2021 5:04 pm CLINICAL HISTORY: HYPOXIA Chest pain. COMPARISON: Chest Single View dated 07/01/2021; Chest Single View dated 03/14/2021; Chest Single View dated 03/13/2021; Chest Single View dated 03/12/2021 FINDINGS: Portable technique limits examination quality. Prominent emphysematous changes are present with chronic mild diffuse interstitial prominence evident . The heart is mildly prominent in size. No displaced fractures.Appearance of the chest is similar to 07/01/2021 study.
[2021-07-04] MEDS: TRAZODONE 50 MG TABLET PO SCH (19:40)
[2021-07-04] MEDS: ATORVASTATIN 40 MG TAB PO SCH (20:08)
[2021-07-04] MEDS: PHENYTOIN ER 100 MG CAP PO SCH (20:09)
[2021-07-05] MEDS: METOPROLOL TAR 25 MG TAB PO SCH (05:11)
--- NOTE | 2021-07-05 07:38 | ECHO ---
HEIGHT: 5 ft 4 in WEIGHT: 145 lb 0 oz DATE OF STUDY: 07/02/[address]: saleem merrill 2-DIMENSIONAL: YES M.MODE: YES DOPPLER: YES COLOR FLOW: YES TDS: NO PORTABLE: NO DEFINITY: NO BUBBLE STUDY: NO DIAGNOSIS: ELEVATED TROPONIN CARDIAC HISTORY: CATHERIZATION: SURGERY: PROSTHETIC VALVE: PACEMAKER: MEASUREMENTS (cm) DIASTOLIC (NORMALS) SYSTOLIC (NORMALS) IVSd 1.1 (0.6-1.2) LA Diam 2.1 (1.9-4.0) LVEF 74% LVIDd 3.9 (3.5-5.7) LVIDs 2.2 (2.0-3.5) %FS 42% LVPWd 1.1 (0.6-1.2) Ao Diam 2.3 (2.0-3.7) 2 DIMENSIONAL ASSESSMENT: RIGHT ATRIUM: NORMAL LEFT ATRIUM: NORMAL RIGHT VENTRICLE: NORMAL LEFT VENTRICLE: NORMAL TRICUSPID VALVE: MITRAL VALVE: MITRAL ANNULAR CALCIFICATION PULMONIC VALVE: NORMAL AORTIC VALVE: NORMAL PERICARDIAL EFFUSION: NONE AORTIC ROOT: NORMAL LEFT VENTRICULAR WALL MOTION: NORMAL DOPPLER/COLOR FLOW: SEE BELOW COMMENTS: NORMAL LEFT VENTRICULAR EJECTION FRACTION >65%, HYPERDYNAMIC. MILD MITRAL, AORTIC AND TRICUSPID REGURGITATION. TECHNOLOGIST: Yessica MACHADO
[2021-07-05] MEDS: ENOXAPARIN 40 MG/0.4 ML SQ SCH (07:46)
[2021-07-05] MEDS: OLANZapine 2.5 MG TAB PO SCH ×2 (07:46→07:47)
[2021-07-05] MEDS: LOSARTAN POTASSIUM 50 MG TABLET PO SCH (07:47)
[2021-07-05] MEDS: DIVALPROEX DR 500MG TAB PO SCH (07:47)
[2021-07-05] MEDS: LORATADINE 10 MG TAB PO SCH (07:47)
[2021-07-05] MEDS: levETIRAcetam 500 MG TAB PO SCH (07:47)
[2021-07-05] MEDS: ASPIRIN EC 81 MG TAB PO SCH (07:47)
[2021-07-05] MEDS: levoFLOXacin 750 MG TAB PO SCH (07:49)
[2021-07-05] MEDS: SODIUM CHLORIDE 1 GM TAB PO SCH (08:00)
[2021-07-05] MEDS: HALOPERIDOL LACT 5 MG/ML INJ IV PRN (10:02)
[2021-07-05] MEDS ORDERED: REGADENOSON 0.4 MG/5 ML SYR IV ONE (10:53)
[2021-07-05 13:24] LABS: BUN Blood Urea Nitrogen 5 mg/dL (7-18); Bicarbonate 30 mmol/L (21-32); Glucose Level 124 mg/dL (74-106); Potassium 3.7 mmol/L (3.5-5.1); Sodium Level 136 mmol/L (136-145)
--- NOTE | 2021-07-05 14:05 | P.DS ---
Admission Date: 07/01/21 Discharge Date: 07/05/21 Disposition: TRANSFER TO SENIOR CARE Discharge Condition: FAIR Reason for Admission: Altered mental status and generalized weakness - Problems (1) Elevated troponin Current Visit: Yes Status: Acute (2) Acute cystitis without hematuria Current Visit: No Status: Acute (3) Altered mental status Current Visit: No Status: Acute (4) Seizure disorder Onset Date: 11/28/17 Current Visit: No Status: Chronic (5) Neurogenic bladder Onset Date: 11/28/17 Current Visit: No Status: Chronic (6) Chronic interstitial lung disease Current Visit: Yes Status: Chronic (7) Metabolic encephalopathy Current Visit: No Status: Acute Brief History of Present Illness: 80-year-old woman with a history hypertension, seizure disorder, neurogenic bladder presented to the emergency department with a complaint of generalized weakness. Patient endorsed dysuria. History is limited because patient was given Ativan and was somnolent so I could not obtain any further history. Workup in the emergency department revealed mildly elevated troponin, EKG showing T-wave inversions in V1 V2 and V3. UA suggest the presence of UTI. Chest x-ray demonstrated chronic interstitial changes. Fever 100.6 recorded in the ED. Did not meet criteria for sepsis. Patient hospitalized for further management. Hospital Course: AMS/UTI/neurogenic bladder/dementia -patient with penicillin, cephalosporin and tetracycline. -urine culture: Mixed growth. -patient treated with IV Levaquin for UTI. She completed 5 days of treatment. -blood cultures: No growth to date. -she was treated with IV fluid briefly -Haldol IV p.r.n. used for agitation. Elevated troponin/abnormal EKG -patient with a history of troponin elevation. -troponin trended up to 0.32 -started aspirin -Echocardiogram: Unremarkable, normal EF, no wall motion abnormality. -Dr. Esposito recommend stress test on Monday but patient refused the stress test. -LDL is elevated. Treated with Lipitor. Seizure disorder -Dilantin level was low -home Dilantin dose resumed -s/p Dilantin loading dose -continued home home dose Depakote and Keppra.. Chronic interstitial lung disease -stable. -chest x-ray reported no new infiltrate. Dementia with behavioral disturbance -she was confused most of the time. -Haldol used p.r.n. for agitation. Vital Signs/Physical Exam: Temp Pulse Resp BP Pulse Ox 99.2 F 76 18 160/87 H 95 07/05/21 11:29 07/05/21 11:29 07/05/21 11:29 07/05/21 11:29 07/05/21 11:29 General: In no apparent distress, Confused, Other (Awake) HEENT: Normocephalic, Mucous membr. moist/pink Neck: 2+ carotid pulse no bruit, JVD not distended Respiratory: Clear to auscultation bilaterally, Normal air movement Cardiovascular: No edema, Regular rate/rhythm, Normal S1 S2 Gastrointestinal: Normal bowel sounds, Soft and benign, Non-distended, No tenderness Musculoskeletal: No swelling Integumentary: No rashes, No erythema Neurological: Normal strength at 5/5 x4 extr, Dementia Laboratory Data at Discharge: WBC 8.00 K/uL (4.3-10.9) 07/04/21 05:41 Hgb 12.4 g/dL (12.0-15.0) 07/04/21 05:41 Hct 37.1 % (36.0-45.0) 07/04/21 05:41 Plt Count 326 K/uL (152-406) 07/04/21 05:41 PT 11.9 SECONDS (9.5-12.5) 07/01/21 11:40 INR 1.03 07/01/21 11:40 Sodium 136 mmol/L (136-145) 07/05/21 08:14 Potassium 3.7 mmol/L (3.5-5.1) 07/05/21 08:14 BUN 5 mg/dL (7-18) L 07/05/21 08:14 Creatinine 0.60 mg/dL (0.55-1.3) 07/05/21 08:14 Glucose 124 mg/dL (74-106) H 07/05/21 08:14 Phosphorus 3.3 mg/dL (2.5-4.9) 07/02/21 06:54 Magnesium 2.2 mg/dL (1.8-2.4) 07/02/21 06:54 Total Bilirubin 0.2 mg/dL (0.2-1.0) 07/01/21 11:40 AST 13 U/L (15-37) L 07/01/21 11:40 ALT 16 U/L (12-78) 07/01/21 11:40 Alkaline Phosphatase 69 U/L (45-117) 07/01/21 11:40 Troponin I 0.32 ng/mL (0.0-0.045) H 07/02/21 00:16 Triglycerides 94 mg/dL (<150) 07/01/21 20:35 Cholesterol 193 mg/dL (<200) 07/01/21 20:35 HDL Cholesterol 49 mg/dL (40-60) 07/01/21 20:35 Cholesterol/HDL Ratio 3.94 07/01/21 20:35 Home Medications: Estradiol [Estrace] 1 appl VG DAILY 03/09/21 Famotidine [Pepcid*] 20 mg PO DAILYPRN PRN 03/09/21 Loratadine [Claritin*] 10 mg PO DAILY 03/09/21 Magnesium Hydroxide [Milk of Magnesia] 5 ml PO Q8HP PRN 03/09/21 Phenytoin Sodium Extended [Phenytek] 300 mg PO BEDTIME 03/09/21 levETIRAcetam [Levetiracetam] 500 mg PO BID 03/09/21 Acetaminophen [Mapap] 650 mg PO Q8H PRN 07/02/21 Albuterol Neb [Proventil 0.083% Neb Soln] 2.5 mg NEB [id number] PRN 07/02/21 Divalproex Sodium 1 tab PO BID 07/02/21 Losartan Potassium 1 tab PO DAILY 07/02/21 Metoprolol Tartrate [Lopressor*] 0.5 tab PO BID 6AM 6PM 07/02/21 OLANZapine [Olanzapine] 1 tab PO BID 07/02/21 Sodium Chloride Tab [Sodium Chloride*] 2 tab PO BIDWM 07/02/21 Trazodone HCl 2 tab PO BEDTIME 07/02/21 Aspirin [Aspirin EC] 81 mg PO DAILY #30 tablet. 07/05/21 New Medications: Aspirin [Aspirin EC] 81 mg PO DAILY #30 tablet. Diet: AHA Activity: Fall precautions Followup: Kun Calderon MD [ACTIVE - CAN ADMIT] - 1-2 Weeks Vanessa Yo MD [Primary Care Provider] - 1-2 Weeks Time spent managing pt's care (in minutes): 37
[2021-07-05 16:15] VITALS: BP 141/87; TEMP 98
[2021-07-05 16:47] VITALS: O2SAT 94
== END 2021-07-05 16:30 | disposition home or self-care (01) | DRG 689 ==
LOC: ER 11:24 → ERHOLD 16:06 → 4TH 19:33
PROVIDERS: ADMIT Internal Medicine; ATTEND Internal Medicine
DX: N30.00 Acute cystitis without hematuria (principal); G93.41 Metabolic encephalopathy; J84.9 Interstitial pulmonary disease, unspecified; F03.91 Unspecified dementia, unspecified severity, with behavioral disturbance; R77.8 Other specified abnormalities of plasma proteins; N31.9 Neuromuscular dysfunction of bladder, unspecified; G40.909 Epilepsy, unspecified, not intractable, without status epilepticus; I10 Essential (primary) hypertension; Z88.0 Allergy status to penicillin; Z88.2 Allergy status to sulfonamides; Z20.822 Contact with and (suspected) exposure to COVID-19
CPT/HCPCS: 36415; 51702; 70450; 71045; 80048; 80061; 80076; 80164; 80177; 80185; 81003; 81015; 83605; 83735; 83880; 84100; 84439; 84443; 84484; 85025; 85610; 87040; 87086; 87088; 93005; 93306; 94760; 96374; 97116; 97161; 99285; J1630; J1650; J2785; J3480; J7042; U0003

== ENCOUNTER 2021-09-22 15:10 | Emergency (ER) | payer OTHER ==
[2021-09-22 16:48] LABS: Phenytoin (Dilantin) Level 9.1 ug/mL (10.0-20.0); Valproic Acid (Depakene) Level 66.8 ug/mL (50-100)
--- NOTE | 2021-09-22 16:56 | EDPHYS ---
Physician Documentation [facility] Name: Joleen Boyer Age: 80 yrs Sex: Female : 1940 Arrival Date: 09/22/2021 Time: 15:31 Bed 6 Private MD: ED Physician Janusz Lara Historical: - Allergies: 09/22 15:33 Cephalexin Monohydrate; bp 15:33 Keflex; bp 15:33 PENICILLINS; bp 15:33 Nitrofurantoin; bp 15:33 Nitrofurantoin Macrocrystal; bp 15:33 Sulfa (Sulfonamide Antibiotics); bp 15:33 Tetracycline; bp - Immunization history:: Adult Immunizations up to date. - Social history:: Smoking status: Patient denies any tobacco usage or history of. Vital Signs: 15:31 BP 137 / 88; Pulse 77; Resp 16; Temp 98; Pulse Ox 98% ; bp 17:00 BP 166 / 74; Pulse 81; Resp 17; Temp 98; Pulse Ox 98% ; bp MDM: 15:35 Patient medically screened. jr8 09/22 15:36 Order name: Depakote; Complete Time: 16:55 jr8 09/22 15:36 Order name: Dilantin; Complete Time: 16:55 jr8 Administered Medications: No medications were administered Disposition Summary: 09/22/21 16:55 Discharge Ordered Location: Home jr8 Problem: new jr8 Symptoms: are unchanged jr8 Condition: Stable jr8 Diagnosis - Insomnia jr8 Followup: jr8 - With: Private Physician - When: 2 - 3 days - Reason: Recheck today's complaints, Continuance of care, Re-evaluation by your physician Discharge Instructions: - Discharge Summary Sheet jr8 - Insomnia jr8 Forms: - Medication Reconciliation Form jr8 - Thank You Letter jr8 - Antibiotic Education jr8 - Prescription Opioid Use jr8 Signatures: Dispatcher [employer] EDMS Connor Ko PA PA jr8 Rolando Briceño, RN RN bp
--- NOTE | 2021-09-22 16:56 | ER ---
Nurse's Notes [facility] Name: Joleen Boyer Age: 80 yrs Sex: Female : 1940 Arrival Date: 09/22/2021 Time: 15:31 Bed 6 Private MD: Diagnosis: Insomnia Presentation: 09/22 15:31 Chief complaint: EMS states: [facility] REQUESTING CHECK OF DEPAKOTE AND DILANTIN bp LEVELS 2/2 RECENT INSOMNIA. Coronavirus screen: At this time, the client does not indicate any symptoms associated with coronavirus-19. Ebola Screen: No symptoms or risks identified at this time. Initial Sepsis Screen: Does the patient meet any 2 criteria? No. Patient's initial sepsis screen is negative. Does the patient have a suspected source of infection? No. Patient's initial sepsis screen is negative. Risk Assessment: Do you want to hurt yourself or someone else? Patient reports no desire to harm self or others. Onset of symptoms is unknown. Care prior to arrival: Glucose check: 93. 15:31 Method Of Arrival: EMS: [facility] bp 15:31 Acuity: YORDY 4 bp Triage Assessment: 15:33 General: Appears in no apparent distress. comfortable, Behavior is calm, cooperative, bp CONFUSED. Pain: Denies pain. EENT: No deficits noted. Neuro: Level of Consciousness is awake, alert, obeys commands, confused, Oriented to person. Cardiovascular: No deficits noted. Respiratory: No deficits noted. GI: No signs and/or symptoms were reported involving the gastrointestinal system. : No signs and/or symptoms were reported regarding the genitourinary system. Derm: No deficits noted. Musculoskeletal: No deficits noted. Historical: - Allergies: 15:33 Cephalexin Monohydrate; bp 15:33 Keflex; bp 15:33 PENICILLINS; bp 15:33 Nitrofurantoin; bp 15:33 Nitrofurantoin Macrocrystal; bp 15:33 Sulfa (Sulfonamide Antibiotics); bp 15:33 Tetracycline; bp - Immunization history:: Adult Immunizations up to date. - Social history:: Smoking status: Patient denies any tobacco usage or history of. Screenin:35 Abuse screen: Denies threats or abuse. Denies injuries from another. Nutritional bp screening: No deficits noted. Tuberculosis screening: No symptoms or risk factors identified. Fall Risk None identified. Assessment: 15:35 General: SEE TRIAGE NOTE. bp 17:00 Reassessment: [facility] CONTACTED FOR TRANSPORT HOME. bp 17:36 Reassessment: PT TIA WITH [facility] TRAN[facility]. bp Vital Signs: 15:31 BP 137 / 88; Pulse 77; Resp 16; Temp 98; Pulse Ox 98% ; bp 17:00 BP 166 / 74; Pulse 81; Resp 17; Temp 98; Pulse Ox 98% ; bp ED Course: 15:31 Patient arrived in ED. bp 15:33 Triage completed. bp 15:33 Arm band placed on. bp 15:35 Connor Ko PA is PHCP. jr8 15:35 Janusz Lara MD is Attending Physician. jr8 15:35 Patient has correct armband on for positive identification. Bed in low position. Call bp light in reach. Side rails up X2. 16:49 Rolando Briceño, RN is Primary Nurse. bp 17:00 No provider procedures requiring assistance completed. Patient did not have IV access bp during this emergency room visit. Administered Medications: No medications were administered Outcome: 16:55 Discharge ordered by . jr8 17:00 Discharged to [facility]. Report called to [facility] bp 17:00 Condition: stable 17:00 Discharge instructions given to patient, [facility], Instructed on discharge instructions, follow up and referral plans. Demonstrated understanding of instructions, follow-up care. 17:37 Patient left the ED. bp Signatures: Connor Ko PA PA jr8 Rolando Briceño, RN RN bp
[2021-09-22 17:49] VITALS: TEMP 98; O2SAT 98
[2021-09-22 17:50] VITALS: BP 166/74
== END 2021-09-22 17:37 | disposition home or self-care (01) ==
LOC: ER 15:10
DX: G47.00 Insomnia, unspecified (principal); Z88.0 Allergy status to penicillin; Z88.1 Allergy status to other antibiotic agents; Z88.2 Allergy status to sulfonamides; Z88.8 Allergy status to other drugs, medicaments and biological substances
CPT/HCPCS: 36415; 80164; 80185; 99283

== ENCOUNTER 2021-10-02 17:47 | Emergency (ER) | payer OTHER ==
--- NOTE | 2021-10-02 18:50 | RAD REPORT ---
EXAM DESCRIPTION: CT - Facial Bones W/ Mpr - 10/02/2021 6:23 pm CLINICAL HISTORY: Facial injury with facial pain status post fall COMPARISON: None TECHNIQUE: Computed axial tomography of the face was obtained. Coronal and sagittal reconstruction w as performed. All CT scans are performed using dose optimization technique as appropriate and may include automated exposure control or mA/KV adjustment according to patient size. FINDINGS: A fracture is not seen. A TMJ dislocation is not noted. The globes are intact. Fluid within the sinuses is not seen. IMPRESSION: Negative for a facial fracture.
--- NOTE | 2021-10-02 18:50 | RAD REPORT ---
EXAM DESCRIPTION: CT - Head C Spine Mpr Wo Con - 10/02/2021 6:23 pm CLINICAL HISTORY: Head and neck injury status post fall. Head and neck pain COMPARISON: 2018 TECHNIQUE: Computed axial tomography of the head and cervical spine was obtained. Sagittal and coronal reconstruction was performed. All CT scans are performed using dose optimization technique as appropriate and may include automated exposure control or mA/KV adjustment according to patient size. 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 Moderate low-density areas within periventricu lar, deep and subcortical white matter likely ischemic changes secondary to small vessel disease. An intracranial bleed is not seen. The ventricles are normal in caliber. An extra-axial fluid collect ion is not noted. A cervical fracture is not visualized. No dislocation is noted. Mild posterior subluxation C3 on C4 i s chronic IMPRESSION: No acute intracranial abnormality is seen. A cervical fracture is not visualized. If the patient continues to have symptoms to suggest intracra nial /spinal cord pathology then MRI would be recommended
--- NOTE | 2021-10-02 18:58 | RAD REPORT ---
EXAM DESCRIPTION: [place] Single View10/02/2021 6:42 pm CLINICAL HISTORY: Chest pain COMPARISON: 06/2021 FINDINGS: Pulmonary interstitial lung opacities have the appearance of pulmonary fibrosis. The lungs appear clear of acute infiltrate. The heart is borderline enlarged IMPRESSION: No acute abnormalities displayed
[2021-10-02 19:04] LABS: Absolute Lymphocytes (CBC) 1.8 K/uL (0.7-4.9); Hematocrit 39.1 % (36.0-45.0); Lymphocytes % 18.4 % (15.3-44.8); MPV 7.9 fL (7.6-11.3); RBC Red Blood Cell Count 4.11 M/uL (3.86-4.86)
[2021-10-02 19:11] LABS: Protime INR 1.03
[2021-10-02 19:24] LABS: ALT/SGPT 17 U/L (12-78); AST/SGOT 8 U/L (15-37); Albumin 3.2 g/dL (3.4-5.0); Alkaline Phosphatase 78 U/L (45-117); BUN Blood Urea Nitrogen 11 mg/dL (7-18); Bicarbonate 33 mmol/L (21-32); Bilirubin Direct < 0.1 mg/dL (0-0.2); Bilirubin Total 0.1 mg/dL (0.2-1.0); Glucose Level 93 mg/dL (74-106); Magnesium 2.3 mg/dL (1.8-2.4); NT PRO-BNP 236 pg/mL (<450); Potassium 3.9 mmol/L (3.5-5.1); Protein, Total 7.3 g/dL (6.4-8.2); Sodium Level 141 mmol/L (136-145)
[2021-10-02] MEDS ORDERED: AMOX TR/K CLAV 400MG CHEW TAB PO ONE (21:15)
[2021-10-02 23:33] LABS: Urine Blood Trace-intact (Negative); Urine Glucose Negative (Negative); Urine Protein Negative (Negative)
[2021-10-02 23:52] LABS: Urine Amorphous Sediment 2+ /HPF (NONE SEEN); Urine Bacteria >50 /HPF (<20); Urine Mucus 2+ /HPF (NONE SEEN); Urine RBC <5 /HPF (NONE SEEN)
[2021-10-03] MEDS ORDERED: CEFTRIAXONE 1000 MG/VIAL ONE (00:58)
[2021-10-03] MEDS ORDERED: NA CHLORIDE 0.9% 100 ML IV ONE (01:02)
--- NOTE | 2021-10-03 01:36 | ER ---
Nurse's Notes [facility] [place] Name: Joleen Boyer Age: 81 yrs Sex: Female : 1940 Arrival Date: 10/02/2021 Time: 17:48 Bed 16 Private MD: Diagnosis: UTI/ Urinary tract infection, site not specified Presentation: 10/02 17:48 Chief complaint: EMS states: Pt presents with AMS, which is her baseline, oriented to cb5 person only. Concern from long-term is patient is leaning to her right side. Uniwtinessed falls last week, has eccymosis to right side of face. Coronavirus screen: Vaccine status: Patient reports receiving the 2nd dose of the covid vaccine. Ebola Screen: Patient negative for fever greater than or equal to 101.5 degrees Fahrenheit, and additional compatible Ebola Virus Disease symptoms Patient denies exposure to infectious person. Initial Sepsis Screen: Does the patient meet any 2 criteria? No. Patient's initial sepsis screen is negative. Does the patient have a suspected source of infection? No. Patient's initial sepsis screen is negative. Risk Assessment: Do you want to hurt yourself or someone else? Patient reports no desire to harm self or others. 17:48 Method Of Arrival: EMS: [facility] cb5 17:48 Acuity: YORDY 3 cb5 18:21 Onset of symptoms. cb5 Triage Assessment: 17:55 General: Appears comfortable, well developed, well nourished, Behavior is cooperative, cb5 appropriate for age. Pain: Denies pain. Respiratory: Reports cough that is. - Immunization history:: Adult Immunizations up to date. - Social history:: Smoking status: unknown. Screenin:20 Abuse screen: Denies threats or abuse. Denies injuries from another. Nutritional cb5 screening: No deficits noted. Tuberculosis screening: No symptoms or risk factors identified. Fall Risk Fall in past 12 months (25 points). Mental Status- Overestimates/Forgets Limitations (15 pts.). Assessment: 17:58 General: Appears in no apparent distress. comfortable, well groomed, well nourished, cb5 Behavior is cooperative, appropriate for age, confused, oriented to name only. In report from EMS this is her baseline. Pt lives at memory care facility due to dementia.. Pain: Denies pain. Neuro: Level of Consciousness is awake, alert, confused, Oriented to person, Manager Statistics are equal bilaterally Moves all extremities. Speech is normal, Facial symmetry appears normal. Cardiovascular: No deficits noted. Rhythm is sinus rhythm. Respiratory: No deficits noted. Reports cough that is. GI: Abdomen is flat, non-distended. : Parent/caregiver report the patient having incontinence. EENT: No deficits noted. Derm: Skin is thin, with poor turgor bruising to right side of face, skin intact. Musculoskeletal: Parent/caregiver report the patient having generalized weakness. 18:18 Reassessment: patient is in radiology, diet tech transferred pt. will continue cb5 with orders when patient returns back to ER room #16. 19:00 Reassessment: Patient and/or family updated on plan of care and expected duration. Pain vc1 level reassessed. General: Behavior is inappropriate for age, uncooperative. Neuro: Level of Consciousness is awake, alert, confused, Oriented to person. 19:30 Reassessment: Patient attempted to get out of bed hollering "please help me", right leg vc1 over side of bed. Patient re-oriented to place and repositioned. 20:00 Reassessment: No changes from previously documented assessment. Patient and/or family vc1 updated on plan of care and expected duration. Pain level reassessed. 20:15 Reassessment: Patient hollering "help me" trying to scoot to the end of the stretcher. vc1 Placed back in stretcher. 21:00 Reassessment: No changes from previously documented assessment. Patient and/or family vc1 updated on plan of care and expected duration. Pain level reassessed. Patient denies pain at this time. 22:00 Reassessment: No changes from previously documented assessment. Patient and/or family vc1 updated on plan of care and expected duration. Pain level reassessed. Patient attempted to get out of bed. Re-oriented to place and repositioned in bed. Patient denies pain at this time. 23:00 Reassessment: No changes from previously documented assessment. Patient and/or family vc1 updated on plan of care and expected duration. Pain level reassessed. Patient denies pain at this time. 10/03 00:00 Reassessment: No changes from previously documented assessment. Patient and/or family vc1 updated on plan of care and expected duration. Pain level reassessed. Patient denies pain at this time. 01:00 Reassessment: No changes from previously documented assessment. Patient and/or family vc1 updated on plan of care and expected duration. Pain level reassessed. Patient denies pain at this time. 01:48 Reassessment: No changes from previously documented assessment. Patient and/or family vc1 updated on plan of care and expected duration. Pain level reassessed. Patient denies pain at this time. General: Appears in no apparent distress. comfortable, Behavior is inappropriate for age, uncooperative. Neuro: Level of Consciousness is awake, confused, Oriented to person. Vital Signs: 10/02 17:48 BP 160 / 88; Pulse 90; Resp 16; Temp 98.6; Pulse Ox 98% ; cb5 18:19 BP 169 / 94; Pulse 79; Resp 16; Temp 98.6; Pulse Ox 98% ; Pain 0/10; cb5 20:24 BP 168 / 90; Pulse 86; Resp 14; Pulse Ox 96% on 2 lpm NC; vc1 21:00 BP 113 / 81; Pulse 104; Resp 22; Pulse Ox 94% on 2 lpm NC; vc1 22:00 BP 116 / 92; Pulse 99; Resp 24; Pulse Ox 95% on 2 lpm NC; vc1 23:40 BP 171 / 97; Pulse 77; Resp 13; Pulse Ox 95% on 2 lpm NC; vc1 10/03 00:53 BP 159 / 87; Pulse 80; Resp 19; Pulse Ox 98% on 2 lpm NC; vc1 ED Course: 10/02 17:48 Patient arrived in ED. cb5 17:48 Shannen Trujillo, JON is Primary Nurse. cb5 17:51 Markie Abernathy NP is PHCP. pm1 17:51 Janusz Lara MD is Attending Physician. pm1 17:55 Triage completed. cb5 17:58 Arm band placed on left wrist. cb5 18:20 Patient has correct armband on for positive identification. Allergy band placed. Fall cb5 risk band placed. Placed in gown. Bed in low position. Call light in reach. Side rails up X2. 18:23 CT Head C Spine In Process Unspecified. EDMS 18:23 CT Facial Bones W/O Con In Process Unspecified. EDMS 18:39 Warm blanket given. monitoring and evaluation advisor on. Pulse ox on. NIBP on. mh5 18:40 EKG done, by ED staff, reviewed by Markie Abernathy PLASTIC DIE MAKER APPRENTICE. mh5 18:42 XRAY Chest (1 view) In Process Unspecified. EDMS 18:56 Basic Metabolic Panel Sent. cb5 18:56 CBC with Diff Sent. cb5 18:56 LFT's Sent. cb5 18:56 Magnesium Sent. cb5 18:57 Report given to Fuentes Olmstead. cb5 18:57 NT PRO-BNP Sent. cb5 18:57 PT-INR Sent. cb5 18:57 Troponin HS Sent. cb5 10/03 03:18 No provider procedures requiring assistance completed. IV discontinued. vc1 Administered Medications: 01:20 Drug: Rocephin (cefTRIAXone) 1 grams Route: IV; Rate: calculated rate; Site: left wrist;vc1 Outcome: 01:36 Discharge ordered by MD. pm1 03:18 Discharged to long-term. Report called to [facility] INN Transfer form completed. vc1 03:18 Condition: good 03:18 Discharge instructions given to long-term, Instructed on discharge instructions, follow up and referral plans. medication usage, Prescriptions given X 1. 03:19 Patient left the ED. vc1 Signatures: Dispatcher [employer] LOANSD Markie Abernathy, [place] PLASTIC DIE MAKER APPRENTICE pm1 Sheri Salmeron 5 Shannen Trujillo, RN RN 5 Aysha Abraham, RN RN vc1
--- NOTE | 2021-10-03 01:36 | EDPHYS ---
Physician Documentation [facility] Name: Joleen Boyer Age: 81 yrs Sex: Female : 1940 Arrival Date: 10/02/2021 Time: 17:48 Bed 16 Private MD: ED Physician Janusz Lara HPI: 10/02 18:02 This 81 yrs old Female presents to ER via EMS with complaints of Altered Mental Status. pm1 18:02 The patient presents with patient is leaning to her right side and the last time she pm1 did that she had an [place] per [facility]. Patient is at her baseline mental status, oriented to self which is her baseline. Onset: The symptoms/episode began/occurred today. Possible causes: unknown. Associated signs and symptoms: The patient has no apparent associated signs or symptoms, Pertinent negatives: diarrhea, vomiting, cough. Current symptoms: In the emergency department the patient's symptoms are unchanged from the initial presentation. Patient's baseline: Neuro: orientated to person, Motor: no deficits. It is unknown whether or not the patient has recently seen a physician. - Immunization history:: Adult Immunizations up to date. - Social history:: Smoking status: unknown. ROS: 18:02 Constitutional: Negative for fever, chills, and weight loss, Cardiovascular: Negative pm1 for chest pain, palpitations, and edema, Respiratory: Negative for shortness of breath, cough, wheezing, and pleuritic chest pain, Abdomen/GI: Negative for abdominal pain, nausea, vomiting, diarrhea, and constipation, MS/Extremity: Negative for injury and deformity, Skin: Negative for injury, rash, and discoloration. 18:02 Neuro: Positive for altered mental status, Negative for weakness. 18:02 All other systems are negative. Exam: 18:02 Constitutional: This is a well developed, well nourished patient who is awake, alert, pm1 and in no acute distress. Head/Face: Normocephalic, atraumatic. 18:02 Back: No spinal tenderness. No costovertebral tenderness. Full range of motion. Skin: Warm, dry with normal turgor. Normal color with no rashes, no lesions, and no evidence of cellulitis. MS/ Extremity: Pulses equal, no cyanosis. Neurovascular intact. Full, normal range of motion. 18:02 Eyes: Exam is negative for acute changes, Periorbital structures: appear normal, Pupils: no acute changes. 18:02 ENT: Mouth: is normal, no acute changes, Lips: normal, moist, Oral mucosa: normal, pink and intact, moist. 18:02 Cardiovascular: Exam negative for acute changes, Rate: normal, Rhythm: regular, Pulses: no pulse deficits are appreciated, Heart sounds: normal, normal S1and S2. 18:02 Respiratory: Exam negative for acute changes, respiratory distress, shortness of breath, Breath sounds: are clear throughout. 18:02 Abdomen/GI: Exam negative for acute changes, Inspection: abdomen appears normal, Palpation: abdomen is soft and non-tender, in all quadrants. 18:02 Neuro: Orientation: to person, Mentation: no acute changes, per EMS, Cranial nerves: CN II- XII are normal as tested, Motor: moves all fours, Sensation: no obvious gross deficits. Vital Signs: 17:48 BP 160 / 88; Pulse 90; Resp 16; Temp 98.6; Pulse Ox 98% ; cb5 18:19 BP 169 / 94; Pulse 79; Resp 16; Temp 98.6; Pulse Ox 98% ; Pain 0/10; cb5 20:24 BP 168 / 90; Pulse 86; Resp 14; Pulse Ox 96% on 2 lpm NC; vc1 21:00 BP 113 / 81; Pulse 104; Resp 22; Pulse Ox 94% on 2 lpm NC; vc1 22:00 BP 116 / 92; Pulse 99; Resp 24; Pulse Ox 95% on 2 lpm NC; vc1 23:40 BP 171 / 97; Pulse 77; Resp 13; Pulse Ox 95% on 2 lpm NC; vc1 10/03 00:53 BP 159 / 87; Pulse 80; Resp 19; Pulse Ox 98% on 2 lpm NC; vc1 MDM: 10/02 18:00 Patient medically screened. pm1 10/03 00:27 Data reviewed: vital signs. Data interpreted: Pulse oximetry: on room air is 95 %. pm1 Interpretation: normal. 00:29 Counseling: I had a detailed discussion with the patient and/or guardian regarding: the pm1 historical points, exam findings, and any diagnostic results supporting the discharge/admit diagnosis, lab results, radiology results, the need for further work-up and treatment in the hospital. 00:33 Physician consultation: Omar BHATT regarding admission, patient's condition, pm1 discussed patient admission, but patient does not meet admission criteria. Therefore will discharge the patient to [facility] with antibiotics for UTI. 10/02 18:02 Order name: Basic Metabolic Panel; Complete Time: 19:48 pm1 10/02 18:02 Order name: CBC with Diff; Complete Time: 19:17 pm1 10/02 18:02 Order name: LFT's; Complete Time: 19:48 pm1 10/02 18:02 Order name: Magnesium; Complete Time: 19:48 pm1 10/02 18:02 Order name: NT PRO-BNP; Complete Time: 19:48 pm1 10/02 18:02 Order name: PT-INR; Complete Time: 19:17 pm1 10/02 18:02 Order name: CT Head C Spine; Complete Time: 19:00 pm1 10/02 18:02 Order name: Troponin HS; Complete Time: 19:48 pm1 10/02 21:50 Order name: Troponin HS lp1 10/02 21:50 Order name: Troponin High Sensitivity; Complete Time: 22:51 EDHI 10/02 23:32 Order name: Urine Dipstick-Ancillary; Complete Time: 23:36 EDMS 10/02 23:36 Order name: Urine Microscopic Only; Complete Time: 23:57 pm1 10/02 23:36 Order name: Urine Microscopic Only vc1 10/02 23:53 Order name: Urine Culture EDHI 10/02 18:02 Order name: XRAY Chest (1 view); Complete Time: 19:00 pm1 10/02 18:02 Order name: EKG; Complete Time: 18:03 pm1 10/02 18:02 Order name: Cardiac monitoring; Complete Time: 18:21 pm1 10/02 18:02 Order name: EKG - Nurse/Tech; Complete Time: 18:39 pm1 10/02 18:02 Order name: IV Saline Lock; Complete Time: 18:56 pm1 10/02 18:02 Order name: Labs collected and sent; Complete Time: 19:49 pm1 10/02 18:02 Order name: O2 Per Protocol; Complete Time: 18:21 pm1 10/02 18:02 Order name: O2 Sat Monitoring; Complete Time: 18:21 pm10/02 18:02 Order name: CT Facial Bones W/O Con; Complete Time: 19:00 pm1 10/02 22:52 Order name: Urine Dipstick-Ancillary (obtain specimen); Complete Time: 23:36 pm1 10/02 22:52 Order name: Bishop; Complete Time: 23:36 pm1 Administered Medications: 01:20 Drug: Rocephin (cefTRIAXone) 1 grams Route: IV; Rate: calculated rate; Site: left wrist;vc1 Disposition: 07:01 Co-signature as Attending Physician, Janusz Lara MD. rn Disposition Summary: 10/03/21 01:36 Discharge Ordered Location: Home pm1 Problem: new pm1 Symptoms: have improved pm1 Condition: Stable pm1 Diagnosis - UTI/ Urinary tract infection, site not specified pm1 Followup: pm1 - With: Emergency Department - When: As needed - Reason: Worsening of condition Followup: pm1 - With: Private Physician - When: 2 - 3 days - Reason: Recheck today's complaints, Continuance of care, Re-evaluation by your physician Discharge Instructions: - Discharge Summary Sheet pm1 - Urinary Tract Infection, Adult pm1 Forms: - Medication Reconciliation Form pm1 - Thank You Letter pm1 - Antibiotic Education pm1 - Prescription Opioid Use pm1 - SBAR form mw2 Prescriptions: - cefpodoxime 200 mg Oral Tablet - take 1 tablet by ORAL route every 12 hours for 7 days with food; 14 tablet; pm1 Refills: 0, Product Selection Permitted Signatures: Dispatcher [employer] Janusz Clarke MD MD rn Marinas, Patrick, NP FRUIT BAR MAKER pm1 Shannen Trujillo RN RN cb5 Aysha Abraham RN RN vc1
[2021-10-03 08:59] VITALS: TEMP 98.6
[2021-10-03 09:07] VITALS: BP 159/87; O2SAT 98
== END 2021-10-03 03:19 | disposition home or self-care (01) ==
LOC: ER 17:47
DX: N39.0 Urinary tract infection, site not specified (principal)
CPT/HCPCS: 36415; 70450; 70486; 71045; 72125; 76377; 80048; 80076; 81003; 81015; 83735; 83880; 84484; 85025; 85610; 87077; 87086; 87088; 87186; 93005; 96374; 99285

== ENCOUNTER 2021-10-08 13:24 | Inpatient (IN) | payer OTHER ==
[2021-10-08] MEDS ORDERED: NA CHLORIDE 0.9% 1,000 ML ONE (15:47)
[2021-10-08] MEDS ORDERED: Levofloxacin500mg IV 500 MG/100 ML BAG IV ONE (15:47)
[2021-10-08 16:02] LABS: Protime INR 1.03
[2021-10-08 16:09] LABS: Absolute Lymphocytes (CBC) 1.1 K/uL (0.7-4.9); Hematocrit 43.3 % (36.0-45.0); Lymphocytes % 18.4 % (15.3-44.8); RBC Red Blood Cell Count 4.57 M/uL (3.86-4.86)
[2021-10-08 16:30] LABS: ALT/SGPT 32 U/L (12-78); Albumin 3.5 g/dL (3.4-5.0); Alkaline Phosphatase 96 U/L (45-117); Amylase 54 U/L (25-115); BUN Blood Urea Nitrogen 10 mg/dL (7-18); Bicarbonate 30 mmol/L (21-32); Bilirubin Direct < 0.1 mg/dL (0-0.2); Bilirubin Total 0.3 mg/dL (0.2-1.0); CKMB Creatine Kinase MB 2.3 ng/mL (1.0-3.6); Creatine Phosphokinase 194 U/L (26-192); Glucose Level 92 mg/dL (74-106); Lipase 75 U/L (73-393); Protein, Total 8.4 g/dL (6.4-8.2); Sodium Level 136 mmol/L (136-145)
[2021-10-08 16:31] LABS: AST/SGOT 41 U/L (15-37); Potassium 4.1 mmol/L (3.5-5.1)
[2021-10-08 16:54] LABS: Urine Blood Trace-intact (Negative); Urine Glucose Negative (Negative); Urine Protein Negative (Negative); Urine Specific Gravity 1.025 (1.005-1.030)
[2021-10-08 17:07] LABS: Blood Morphology Comment NOT SEEN (NOT SEEN); Platelet Estimate ADEQ; White Blood Cell Scan OK (OK)
[2021-10-08 17:16] LABS: Urine Bacteria NONE SEEN /HPF (<20); Urine RBC NONE SEEN /HPF (NONE SEEN)
--- NOTE | 2021-10-08 17:17 | RAD REPORT ---
EXAM DESCRIPTION: CT - Head Brain Wo Cont - 10/08/2021 4:59 pm CLINICAL HISTORY: Alteration of awareness/confusion COMPARISON: June 2021 TECHNIQUE: Computed axial tomography of the head was obtained. IV contrast was not requested. All CT scans are performed using dose optimization technique as appropriate and may include automated exposure control or mA/KV adjustment according to patient size. FINDINGS: An intracranial bleed is not seen . The ventricles are normal in caliber. No extra-axial fluid collection is noted. 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 Mild to moderate low-density areas within periventricular, deep and subcortical white matter likely r epresent ischemic changes secondary to small vessel disease. Fluid within the sinuses/ mastoids is not seen. IMPRESSION: No acute intracranial abnormality is seen. If patient's symptoms persist MRI of the bra in would be recommended.
--- NOTE | 2021-10-08 17:26 | RAD REPORT ---
EXAM DESCRIPTION: CT - Chest Abdomen Pelvis W Cont - 10/08/2021 5:00 pm CLINICAL HISTORY: Chest and abdominal pain COMPARISON: 2020 CT chest TECHNIQUE: Computed axial tomography of the chest, abdomen and pelvis was obtained. 100 cc Isovue-30 0 was administered intravenously. Oral contrast was not given which limits evaluation of bowel All CT scans are performed using dose optimization technique as appropriate and may include automated exposure control or mA/KV adjustment according to patient size. FINDINGS: The interstitial bilateral pulmonary opacities have the appearance of pulmonary fibrosis. A consolidation within the lungs is not noted. Lungs are hyperaerated. No mediastinal or hilar lymphadenopathy A pleural effusion is not seen. A pericardial effusion is not noted. Liver, spleen, pancreas, adrenals and kidneys appear unremarkable Normal appendix. There is no evidence of diverticulitis. Marked bladder distention. Large amount stool is present throughout the colon. Old compression deformities involve thoracic and lumbar vertebra IMPRESSION: Mild to moderate pulmonary fibrosis Marked bladder distention Large amount stool throughout the colon
--- NOTE | 2021-10-08 17:27 | RAD REPORT ---
EXAM DESCRIPTION: [place] Single View10/08/2021 3:24 pm CLINICAL HISTORY: Chest pain COMPARISON: October 02, 2021 FINDINGS: Mild to moderate bilateral interstitial lung opacities have the appearance of pulmonary fi brosis. Heart is mildly to moderately enlarged. Aorta is tortuous/ectatic
--- NOTE | 2021-10-08 17:48 | EDPHYS ---
Physician Documentation [facility] Name: Joleen Boyer Age: 81 yrs Sex: Female : 1940 Arrival Date: 10/08/2021 Time: 13:34 Bed 20 Private MD: ED Physician Bishop Sun HPI: 10/08 17:51 This 81 yrs old Female presents to ER via EMS with unknown complaint. kdr 17:51 The patient presents with confusion, decreased mental status, decreased responsiveness. kdr Onset: The symptoms/episode began/occurred May have occurred over the last couple of days. Possible causes: CVA or TIA, head injury, low blood sugar, sepsis. Associated signs and symptoms: The patient has no apparent associated signs or symptoms. Current symptoms: In the emergency department the patient's symptoms are unchanged from the initial presentation. Patient's baseline: Neuro: orientated to person, Motor: no deficits, Ambulation: unable to walk, Speech: the patient can speak but doesn't make sense, The patient has a previous history of Alzheimer's and dementia. It is unknown whether or not the patient has had similar symptoms in the past. It is unknown whether or not the patient has recently seen a physician. [facility]. Patient is normally altered secondary to her Alzheimer's and dementia. Staff is reporting that she is not at her baseline. This may have been the case since Monday. EMS reported temperature of 100F, blood glucose of 98. Patient responds to questions slowly and in a very limited fashion. Historical: - Allergies: 14:03 Cephalexin Monohydrate; eo2 14:03 Keflex; eo2 14:03 Nitrofurantoin; eo2 14:03 Nitrofurantoin Macrocrystal; eo2 14:03 PENICILLINS; eo2 14:03 Sulfa (Sulfonamide Antibiotics); eo2 14:03 Tetracycline; eo2 - PMHx: 14:03 hypoxemia; covid 19; Dementia; depression; Anxiety; eo2 14:04 epilepsy; insomnia; macular degeneration; Osteoporosis; neuromuscular dysfunction of eo2 bladder; Hypertensive disorder; - Immunization history:: Adult Immunizations unknown, . - Social history:: Smoking status: unknown. ROS: 17:51 Constitutional: Patient is unable to provide a review of systems due to altered mental kdr status Eyes: Negative for injury, pain, redness, and discharge, Neck: Negative for injury, pain, and swelling, Cardiovascular: Negative for chest pain, palpitations, and edema. 17:51 Unable to obtain ROS due to altered mental status. Exam: 15:59 ECG was reviewed by the Attending Physician. kdr 17:51 Constitutional: This is a well developed, well nourished patient who is awake, alert, kdr and in no acute distress. Head/Face: Normocephalic, atraumatic. Eyes: Pupils equal round and reactive to light, extra-ocular motions intact. Lids and lashes normal. Conjunctiva and sclera are non-icteric and not injected. Cornea within normal limits. Periorbital areas with no swelling, redness, or edema. Neck: Trachea midline, no thyromegaly or masses palpated, and no cervical lymphadenopathy. Supple, full range of motion without nuchal rigidity, or vertebral point tenderness. No Meningismus. Chest/axilla: Normal chest wall appearance and motion. Nontender with no deformity. No lesions are appreciated. Cardiovascular: Regular rate and rhythm with a normal S1 and S2. No gallops, murmurs, or rubs. Normal PMI, no JVD. No pulse deficits. Respiratory: Lungs have equal breath sounds bilaterally, clear to auscultation and percussion. No rales, rhonchi or wheezes noted. No increased work of breathing, no retractions or nasal flaring. Abdomen/GI: Soft, non-tender, with normal bowel sounds. No distension or tympany. No guarding or rebound. No evidence of tenderness throughout. Back: No spinal tenderness. No costovertebral tenderness. Full range of motion. Skin: Warm, dry with normal turgor. Normal color with no rashes, no lesions, and no evidence of cellulitis. MS/ Extremity: Pulses equal, no cyanosis. Neurovascular intact. Full, normal range of motion. Vital Signs: 13:40 BP 131 / 70; Pulse 72; Resp 15; Temp 100.9; Pulse Ox 97% on 2 lpm NC; Weight 56.7 kg; eo2 Height 5 ft. 5 in. (165.10 cm); Pain 0/10; 14:00 BP 118 / 67; Pulse 72; Resp 15; Pulse Ox 97% on 2 lpm NC; Pain 0/10; eo2 14:15 BP 130 / 70; Pulse 68; Resp 15; Pulse Ox 97% on 2 lpm NC; eo2 14:45 BP 140 / 74; Pulse 70; Resp 15; Pulse Ox 99% ; eo2 15:15 BP 164 / 89; Pulse 72; Resp 14; Pulse Ox 98% ; eo2 16:00 BP 145 / 81; Pulse 72; Resp 14; Pulse Ox 98% ; eo2 17:15 BP 144 / 81; Pulse 70; Resp 14; Pulse Ox 96% ; eo2 17:45 BP 146 / 80; Pulse 64; Resp 15; Pulse Ox 98% ; eo2 18:45 BP 140 / 83; Pulse 71; Resp 15; Temp 98.7; Pulse Ox 99% ; Pain 0/10; eo2 19:00 BP 140 / 95; Pulse 73; Resp 14; Pulse Ox 99% on 2 lpm NC; ll3 20:00 BP 131 / 92; Pulse 74; Resp 17; Pulse Ox 99% on 2 lpm NC; ll3 21:00 BP 166 / 76; Pulse 75; Resp 98; Pulse Ox 98% on 2 lpm NC; ll3 22:00 BP 177 / 103; Pulse 86; Resp 17; Pulse Ox 17% on 2 lpm NC; ll3 23:00 BP 125 / 76; Pulse 76; Resp 13; Pulse Ox 96% on 2 lpm NC; ll3 10/09 00:10 BP 123 / 79; Pulse 72; Resp 12; Pulse Ox 92% ; ll3 10/08 13:40 Body Mass Index 20.80 (56.70 kg, 165.10 cm) eo2 10/08 13:40 estimated weight and height eo2 MDM: 17:48 Patient medically screened. kdr 17:51 Data reviewed: vital signs, nurses notes, lab test result(s), radiologic studies. kdr Counseling: I had a detailed discussion with the patient and/or guardian regarding: lab results, radiology results, the need for further work-up and treatment in the hospital. 10/08 14:55 Order name: Amylase, Serum kdr 10/08 14:55 Order name: Basic Metabolic Panel kdr 10/08 14:55 Order name: Blood Culture Adult (2) kdr 10/08 14:55 Order name: CBC with Diff; Complete Time: 17:26 kdr 10/08 14:55 Order name: CPK; Complete Time: 17:26 kdr 10/08 14:55 Order name: Ckmb; Complete Time: 17: [facility] 10/08 14:55 Order name: LFT's; Complete Time: 17: [facility] 10/08 14:55 Order name: Lactate; Complete Time: 17: [facility] 10/08 14:55 Order name: Lipase; Complete Time: 17: [facility] 10/08 14:55 Order name: Procalcitonin; Complete Time: 17: [facility] 10/08 14:55 Order name: Protime (+inr); Complete Time: 17: [facility] 10/08 14:55 Order name: Ptt, Activated; Complete Time: 17: [facility] 10/08 14:55 Order name: Troponin HS; Complete Time: 17: [facility] 10/08 14:55 Order name: Urine Microscopic Only; Complete Time: 17: [facility] 10/08 14:56 Order name: Amylase; Complete Time: 17: [facility] 10/08 14:56 Order name: Basic Metabolic Panel; Complete Time: 17: [facility] 10/08 14:56 Order name: Blood Culture [facility] 10/08 16:06 Order name: Glucose, Ancillary Testing; Complete Time: 17: [facility] 10/08 16:54 Order name: Urine Dipstick-Ancillary; Complete Time: 17: [facility] 10/08 17:07 Order name: CBC Smear Scan; Complete Time: 17: [facility] 10/08 17:48 Order name: ABG [facility] 10/08 17:48 Order name: AMMONIA [facility] 10/08 21:33 Order name: COVID-19 SARS RT PCR (Document "Date of Onset" if Symptomatic) cs9 10/09 00:44 Order name: SARS-COV-2 RT PCR [facility] 10/09 02:27 Order name: CBC with Automated Diff [facility] 10/09 02:46 Order name: Lactate [facility] 10/09 02:54 Order name: Comprehensive Metabolic Panel [facility] 10/09 02:54 Order name: Phosphorus [facility] 10/09 02:54 Order name: Lipid Profile [facility] 10/09 02:54 Order name: T4 Free [facility] 10/08 14:55 Order name: Chest Single View XRAY; Complete Time: 17:31 [facility] 10/08 14:55 Order name: Accucheck; Complete Time: 15:57 [facility] 10/08 14:55 Order name: Cardiac monitoring; Complete Time: 15:53 kdr 10/08 14:55 Order name: EKG - Nurse/Tech; Complete Time: 15:53 kdr 10/08 14:55 Order name: IV Saline Lock - Large Bore; Complete Time: 15:52 kdr 10/08 14:55 Order name: Labs collected and sent; Complete Time: 15:52 kdr 10/08 14:55 Order name: O2 Per Protocol; Complete Time: 15:53 kdr 10/08 14:55 Order name: O2 Sat Monitoring; Complete Time: 15:53 kdr 10/08 14:55 Order name: Urine Dipstick-Ancillary (obtain specimen); Complete Time: 16:55 kdr 10/08 15:10 Order name: CT Chest, Abdomen, Pelvis - W/Contrast; Complete Time: 17:31 kdr 10/08 15:11 Order name: CT Head Brain wo Cont; Complete Time: 17:26 kdr 10/08 17:03 Order name: Straight Cath - Urine; Complete Time: 17:03 eo2 10/08 18:56 Order name: Bladder Scanner; Complete Time: 19:06 eo2 10/08 19:39 Order name: Bishop-Two way; Complete Time: 23:00 eo2 10/09 02:54 Order name: Magnesium EDMS 10/09 02:54 Order name: Thyroid Stimulating Hormone EDMS 10/09 02:59 Order name: Procalcitonin EDMS 10/09 03:01 Order name: Troponin High Sensitivity EDMS 10/09 03:01 Order name: C-Reactive Protein EDMS 10/09 03:01 Order name: Phenytoin (Dilantin) Level EDMS 10/09 03:01 Order name: Valproic Acid (Depakene) Level EDMS 10/09 03:01 Order name: Ferritin EDMS 10/09 10:28 Order name: Troponin High Sensitivity EDMS EC:59 Rate is 73 beats/min. Rhythm is regular, Sinus Rhythm with No ectopy. QRS Lafe is kdr Normal. [place] interval is normal. QRS interval is normal. QT interval is normal. Clinical impression: NSR w/ Non-specific ST/T Changes. Administered Medications: 15:52 Drug: LevaQUIN (levofloxacin) 500 mg Volume: 100 ml; Route: IVPB; Infused Over: 60 jl7 mins; Site: right antecubital; 16:52 Follow up: Response: No adverse reaction; IV Status: Completed infusion; IV Intake: eo2 100ml 15:53 Drug: NS 0.9% (30 ml/kg) 30 ml/kg Route: IV; Rate: bolus; Site: right antecubital; jl7 19:06 Follow up: Response: No adverse reaction; IV Status: Completed infusion; IV Intake: eo2 1000ml Disposition Summary: 10/08/21 17:48 Hospitalization Ordered Hospitalization Status: Inpatient Admission kdr Provider: Zena Vargas Condition: Fair kdr Problem: an acute exacerbation kdr Symptoms: are unchanged kdr Bed/Room Type: Standard kdr Location: Telemetry/MedSurg (Inpatient)(10/09/21 23:20) mw Room Assignment: [facility](10/09/21 23:20) mw Diagnosis - Altered mental status, unspecified kdr Forms: - Medication Reconciliation Form kdr - SBAR form kdr Signatures: Dispatcher [employer] EDTing Rodriguez RN RN Bishop Vargas MD MD kdr Leal, Jahala, RN RN jl7 Lillie Torrez RN RN eo2 Corrections: (The following items were deleted from the chart) 20:35 17:48 Telemetry/MedSurg (Inpatient) kdr mw 20:35 17:48 kdr mw 10/09 23:20 10/08 20:35 [facility] ER HOLD mw mw 10/09 23:20 10/08 20:35 ERHOLD- mw mw
--- NOTE | 2021-10-08 17:48 | ER ---
Nurse's Notes [facility] Name: Joleen Boyer Age: 81 yrs Sex: Female : 1940 Arrival Date: 10/08/2021 Time: 13:34 Bed 20 Private MD: Diagnosis: Altered mental status, unspecified Presentation: 10/08 13:40 Chief complaint: EMS states: AMS: pt from [facility], hx of eo2 Alzheimer's and dementia, staff at facility reported pt LKW for her baseline is Monday. Temp 100F with EMS, BG 98. Pt alert to self, states able to follow command minimally. Coronavirus screen: Client denies travel out of the [place] in the last 14 days. limited response due to AMS. Ebola Screen: Unable to complete the Ebola screening because: The patient does not understand the questions being asked. Initial Sepsis Screen: Does the patient meet any 2 criteria? Altered Mental Status. Does the patient have a suspected source of infection? No. Patient's initial sepsis screen is negative. Risk Assessment: Do you want to hurt yourself or someone else? Unable to obtain. Onset of symptoms is unknown. 13:40 Method Of Arrival: EMS: [facility] eo2 13:40 Acuity: YORDY 2 eo2 Triage Assessment: 14:04 General: Appears comfortable, Behavior is calm, lethargic. Pain: Unable to use pain eo2 scale. Historical: - Allergies: 14:03 Cephalexin Monohydrate; eo2 14:03 Keflex; eo2 14:03 Nitrofurantoin; eo2 14:03 Nitrofurantoin Macrocrystal; eo2 14:03 PENICILLINS; eo2 14:03 Sulfa (Sulfonamide Antibiotics); eo2 14:03 Tetracycline; eo2 - PMHx: 14:03 hypoxemia; covid 19; Dementia; depression; Anxiety; eo2 14:04 epilepsy; insomnia; macular degeneration; Osteoporosis; neuromuscular dysfunction of eo2 bladder; Hypertensive disorder; - Immunization history:: Adult Immunizations unknown, . - Social history:: Smoking status: unknown. Screenin:00 Abuse screen: unable to assess. Nutritional screening: unable to assess. Tuberculosis eo2 screening: unable to assess. Fall Risk Fall in past 12 months (25 points). Mental Status-. Assessment: 14:07 General: Appears in no apparent distress. comfortable, Behavior is quiet, lethargic. eo2 Neuro: Level of Consciousness is alert, lethargic, Oriented to person, Weakness. Cardiovascular: Heart tones S1 S2 Capillary refill < 3 seconds. Respiratory: Airway is patent Trachea midline Respiratory effort is even, unlabored, Respiratory pattern is symmetrical, Breath sounds are diminished. Derm: Bruising that is dark purple, right eye/face, s/p fall last week per EMS. Musculoskeletal:. 18:54 Reassessment: Pt is more awake and alert, following commands better, denies pain. eo2 Bladder scan completed, [id number]+, Dr. Sun made aware. lab at bedside for ammonia draw. 19:00 Reassessment: Patient appears in no apparent distress at this time. No changes from ll3 previously documented assessment. Patient and/or family updated on plan of care and expected duration. Pain level reassessed. Patient is alert, oriented x 3, equal unlabored respirations, skin warm/dry/pink. 19:07 Reassessment: lab unable to draw ammonia, another offset label rewinder to attempt. eo2 20:00 Reassessment: Patient appears in no apparent distress at this time. No changes from ll3 previously documented assessment. Patient and/or family updated on plan of care and expected duration. Pain level reassessed. Patient is alert, oriented x 3, equal unlabored respirations, skin warm/dry/pink. 21:00 Reassessment: Patient appears in no apparent distress at this time. No changes from ll3 previously documented assessment. Patient and/or family updated on plan of care and expected duration. Pain level reassessed. Patient is alert, oriented x 3, equal unlabored respirations, skin warm/dry/pink. 22:00 Reassessment: Patient appears in no apparent distress at this time. No changes from ll3 previously documented assessment. Patient and/or family updated on plan of care and expected duration. Pain level reassessed. Patient is alert, oriented x 3, equal unlabored respirations, skin warm/dry/pink. 23:05 Reassessment: Patient appears in no apparent distress at this time. No changes from ll3 previously documented assessment. Patient and/or family updated on plan of care and expected duration. Pain level reassessed. Patient is alert, oriented x 3, equal unlabored respirations, skin warm/dry/pink. 23:37 General: Behavior is drowsy. tw5 10/09 00:10 Reassessment: Patient appears in no apparent distress at this time. No changes from ll3 previously documented assessment. Patient and/or family updated on plan of care and expected duration. Pain level reassessed. Patient is alert, oriented x 3, equal unlabored respirations, skin warm/dry/pink. Vital Signs: 10/08 13:40 BP 131 / 70; Pulse 72; Resp 15; Temp 100.9; Pulse Ox 97% on 2 lpm NC; Weight 56.7 kg; eo2 Height 5 ft. 5 in. (165.10 cm); Pain 0/10; 14:00 BP 118 / 67; Pulse 72; Resp 15; Pulse Ox 97% on 2 lpm NC; Pain 0/10; eo2 14:15 BP 130 / 70; Pulse 68; Resp 15; Pulse Ox 97% on 2 lpm NC; eo2 14:45 BP 140 / 74; Pulse 70; Resp 15; Pulse Ox 99% ; eo2 15:15 BP 164 / 89; Pulse 72; Resp 14; Pulse Ox 98% ; eo2 16:00 BP 145 / 81; Pulse 72; Resp 14; Pulse Ox 98% ; eo2 17:15 BP 144 / 81; Pulse 70; Resp 14; Pulse Ox 96% ; eo2 17:45 BP 146 / 80; Pulse 64; Resp 15; Pulse Ox 98% ; eo2 18:45 BP 140 / 83; Pulse 71; Resp 15; Temp 98.7; Pulse Ox 99% ; Pain 0/10; eo2 19:00 BP 140 / 95; Pulse 73; Resp 14; Pulse Ox 99% on 2 lpm NC; ll3 20:00 BP 131 / 92; Pulse 74; Resp 17; Pulse Ox 99% on 2 lpm NC; ll3 21:00 BP 166 / 76; Pulse 75; Resp 98; Pulse Ox 98% on 2 lpm NC; ll3 22:00 BP 177 / 103; Pulse 86; Resp 17; Pulse Ox 17% on 2 lpm NC; ll3 23:00 BP 125 / 76; Pulse 76; Resp 13; Pulse Ox 96% on 2 lpm NC; ll3 10/09 00:10 BP 123 / 79; Pulse 72; Resp 12; Pulse Ox 92% ; ll3 10/08 13:40 Body Mass Index 20.80 (56.70 kg, 165.10 cm) eo2 10/08 13:40 estimated weight and height eo2 ED Course: 13:34 Patient arrived in ED. eo2 13:37 Bishop Sun MD is Attending Physician. kdr 13:41 Lillie Torrez, JON is Primary Nurse. eo2 13:45 Inserted saline lock: 20 gauge in right hand, using aseptic technique. ,using aseptic eo2 technique. by EMS. 13:52 Triage completed. eo2 14:00 Patient has correct armband on for positive identification. eo2 14:00 Pulse ox on. NIBP on. Door closed. eo2 14:00 No provider procedures requiring assistance completed. eo2 14:12 Arm band placed on. eo2 15:24 Chest Single View XRAY In Process Unspecified. EDMS 15:50 Inserted saline lock: 22 gauge in right antecubital area, using aseptic technique. tp1 Blood collected. 15:51 Initial lab(s) drawn, by me, sent to lab. tp1 15:55 EKG done, by ED staff, reviewed by Bishop Sun MD. dh3 16:55 Urine Microscopic Only Sent. dh3 16:59 CT Head Brain wo Cont In Process Unspecified. EDMS 17:00 CT Chest, Abdomen, Pelvis - W/Contrast In Process Unspecified. EDMS 17:47 Zena Vargas MD is Hospitalizing Provider. kdr 19:40 Report given to Radha WEBB. eo2 23:37 COVID swab sent to lab. tw5 23:37 COVID-19 SARS RT PCR (Document "Date of Onset" if Symptomatic) Sent. tw5 10/09 04:33 Inserted saline lock: 22 gauge in right wrist, using aseptic technique. tw5 10:27 Bella Becerril, RN is Primary Nurse. jh6 19:46 Primary Nurse role handed off by Bella Becerril, JON cs9 10/10 00:11 Patient admitted, IV remains in place. st1 Administered Medications: 10/08 15:52 Drug: LevaQUIN (levofloxacin) 500 mg Volume: 100 ml; Route: IVPB; Infused Over: 60 jl7 mins; Site: right antecubital; 16:52 Follow up: Response: No adverse reaction; IV Status: Completed infusion; IV Intake: eo2 100ml 15:53 Drug: NS 0.9% (30 ml/kg) 30 ml/kg Route: IV; Rate: bolus; Site: right antecubital; jl7 19:06 Follow up: Response: No adverse reaction; IV Status: Completed infusion; IV Intake: eo2 1000ml Intake: 16:52 IV: 100ml; Total: 100ml. eo2 19:06 IV: 1000ml; Total: 1100ml. eo2 Output: 17:03 Urine: 750ml (Straight Cath); Total: 750ml. eo2 Outcome: 17:48 Decision to Hospitalize by Provider. kdr 10/10 00:10 Admitted to Med/surg accompanied by nurse, via stretcher, room 403, with oxygen, with st1 chart, Report called to JON Cuevas Condition: good Instructed on the need for admit. 00:50 Patient left the ED. st1 Signatures: Dispatcher [employer] EDMS Bishop Sun MD MD [facility] Anh Shell RN RN jl7 Minda Aldridge [facility] Soni Jean 5 Lizette Hein 9 Radha Waldrop, RN RN ll3 Bella Becerril RN RN 6 Soni Brown tp1 Lillie Torrez RN RN eo2 Sobeida Palomo, RN RN st1 Corrections: (The following items were deleted from the chart) 10/08 16:12 14:00 BP 118 / 67; Pulse 72bpm; Resp 15bpm; Pulse Ox 97% 2 lpm Nasal Cannula; eo2 eo2 18:57 18:54 Reassessment: Pt is more awake and alert, following commands better, denies pain. eo2 Bladder scan completed, [id number]+, Dr. Sun made aware eo2
[2021-10-08 18:12] LABS: Arterial Blood Carboxyhemoglob 0.9 % (0-1.5); Blood Gas Oxyhemoglobin 94.3 % (94-97); Blood O2 Saturation 96.2 % (92-98.5)
--- NOTE | 2021-10-08 22:15 | P.HP ---
Certification for Inpatient Patient admitted to: Observation With expected LOS: <2 Midnights Patient will require the following post-hospital care: None Practitioner: I am a practitioner with admitting privileges, knowledge of patient current condition, hospital course, and medical plan of care. Services: Services provided to patient in accordance with Admission requirements found in Title 42 Section 412.3 of the Code of Federal Regulations <Claude Hill Bridget - Last Filed: 10/08/21 22:20> Patient History Date of Service: 10/08/21 Reason for admission: AMS History of Present Illness: Ms. Boyer is a 81 yo F with dementia, seizure disorger, neurogenic bladder, and hypertension who was brought in from [facility] for altered mental status. Staff reports patient last known baseline was on Monday. At bedside, patient is oriented to place only. She denies pain and is resting comfortably. Spoke to patient's daughter who says patient sounds to be at her baseline functioning. She has a bruise on her right eye, denies pain, does not remember falling. T 100.4. Troponin 107.80, elevated on last admission. Labs reviewed. Patient had marked urinary retention, 750cc drained after straight catherization. Tay placed in ED. No evidence of UTI. CXR FINDINGS: Mild to moderate bilateral interstitial lung opacities have the appearance of pulmonary fibrosis. Heart is mildly to moderately enlarged. Aorta is tortuous/ectatic CTAP IMPRESSION: Mild to moderate pulmonary fibrosis Marked bladder distention Large amount stool throughout the colon CT HEAD IMPRESSION: No acute intracranial abnormality is seen. If patient's symptoms persist MRI of the brain would be recommended. - Past Medical/Surgical History Diabetic: No -: Seizure disorder -: Neurogenic bladder -: Patient self caths -: Hypertension -: dementia -: tonsillectomy -: hysterectomy -: left femur fx Psychosocial/ Personal History: The patient is a . She has 2 children. She is living in a jail - Social History Smoking Status: Never smoker Alcohol use: No CD- Drugs: No Caffeine use: No <Claude Hill - Last Filed: 10/08/21 22:20> Date of Service: 10/08/21 <Zena Vargas - Last Filed: 10/10/21 23:45> Allergies nitrofurantoin macrocrystal [From Macrobid] Allergy (Severe, Verified 07/07/20 11:11) Itching/Hives/Rash cephalexin monohydrate [From Keflex] Allergy (Verified 07/07/20 11:11) Hives nitrofurantoin [From Macrobid] Allergy (Verified 07/07/20 11:11) Unknown Penicillins Allergy (Verified 07/07/20 11:11) Hives tetracycline [Tetracycline] Allergy (Verified 07/07/20 11:11) Hives Sulfa (Sulfonamid Allergy (Uncoded 11/28/17 02:38) Unknown tetracycline Allergy (Uncoded 11/28/17 02:37) Unknown Home Medications: Estradiol [Estrace] 1 appl VG DAILY 03/09/21 Famotidine [Pepcid*] 20 mg PO DAILYPRN PRN 03/09/21 Loratadine [Claritin*] 10 mg PO DAILY 03/09/21 Magnesium Hydroxide [Milk of Magnesia] 5 ml PO Q8HP PRN 03/09/21 Phenytoin Sodium Extended [Phenytek] 300 mg PO BEDTIME 03/09/21 levETIRAcetam [Levetiracetam] 500 mg PO BID 03/09/21 Acetaminophen [Mapap] 650 mg PO Q8H PRN 07/02/21 Albuterol Neb [Proventil 0.083% Neb Soln] 2.5 mg NEB Q6OPENH PRN 07/02/21 Divalproex Sodium 1 tab PO BID 07/02/21 Losartan Potassium 1 tab PO DAILY 07/02/21 Metoprolol Tartrate [Lopressor*] 0.5 tab PO BID 6AM 6PM 07/02/21 OLANZapine [Olanzapine] 1 tab PO BID 07/02/21 Sodium Chloride Tab [Sodium Chloride*] 2 tab PO BIDWM 07/02/21 Trazodone HCl 2 tab PO BEDTIME 07/02/21 Aspirin [Aspirin EC] 81 mg PO DAILY #30 tablet. 07/05/21 Ciprofloxacin HCl [Cipro 500 MG Tablet] 500 mg PO BID 10/10/21 OLANZapine [Olanzapine] 10 mg PO BEDTIME 10/10/21 Review of Systems 10-point ROS is otherwise unremarkable General: Unremarkable ENT: Unremarkable Respiratory: Unremarkable Cardiovascular: Unremarkable Gastrointestinal: Unremarkable Genitourinary: Unremarkable <Claude Hill - Last Filed: 10/08/21 22:20> Physical Examination - Physical Exam General: Alert, In no apparent distress, Demented, Confused HEENT: Atraumatic, PERRLA, Mucous membr. moist/pink, EOMI, Sclerae nonicteric Neck: Supple, 2+ carotid pulse no bruit, No LAD, Without JVD or thyroid abnormality Respiratory: Clear to auscultation bilaterally, Normal air movement Cardiovascular: Regular rate/rhythm, Normal S1 S2 Gastrointestinal: Normal bowel sounds, No tenderness Musculoskeletal: No tenderness Integumentary: No rashes Neurological: Normal speech, Normal strength at 5/5 x4 extr, Normal tone, Dementia Lymphatics: No axilla or inguinal lymphadenopathy Urinary: Tay catheter - Studies Laboratory Data (last 24 hrs) 10/08/21 15:34: PT 11.9, INR 1.03, APTT 28.3 10/08/21 15:34: WBC 6.00 D, Hgb 14.2, Hct 43.3, Plt Count 320 10/08/21 15:34: Sodium 136, Potassium 4.1, BUN 10, Creatinine 0.59, Glucose 92, Total Bilirubin 0.3, AST 41 H, ALT 32, Alkaline Phosphatase 96, Amylase 54, Lipase 75 <Claude Hill S - Last Filed: 10/08/21 22:20> Assessment and Plan - Problems (Diagnosis) (1) Altered mental status Current Visit: No Status: Acute Qualifiers: Altered mental status type: unspecified Qualified Code(s): R41.82 - Altered mental status, unspecified (2) COPD (chronic obstructive pulmonary disease) Onset Date: 02/07/17 Current Visit: No Status: Chronic Qualifiers: COPD type: unspecified COPD Qualified Code(s): J44.9 - Chronic obstructive pulmonary disease, unspecified (3) Diastolic heart failure Current Visit: No Status: Chronic Qualifiers: Heart failure chronicity: chronic Qualified Code(s): I50.32 - Chronic diastolic (congestive) heart failure (4) Elevated troponin Current Visit: No Status: Acute (5) Urinary retention Onset Date: 02/07/17 Current Visit: No Status: Acute (6) Dementia Onset Date: 02/07/17 Current Visit: No Status: Chronic Qualifiers: Dementia type: unspecified type Dementia behavioral disturbance: without behavioral disturbance Qualified Code(s): F03.90 - Unspecified dementia without behavioral disturbance (7) Neurogenic bladder Onset Date: 11/28/17 Current Visit: No Status: Chronic (8) Seizure disorder Onset Date: 11/28/17 Current Visit: No Status: Chronic - Plan trend troponin, repeat EKG tay placed in ED stool softeners PRN procal, lactate, blood cultures pending dilantin, keppra, depakote levels pending seizure precautions reconcile and continue home medications DVT ppx Discharge Plan: Prison Plan to discharge in: 24 Hours - Advance Directives Does patient have a Living Will: No Does patient have a Durable POA for Healthcare: No - Code Status/Comfort Care Code Status Assessed: Yes (DNR ) Critical Care: No Time Spent Managing Pts Care (In Minutes): 70 <Claude Hill - Last Filed: 10/08/21 22:20> - Problems (Diagnosis) (1) Fall Onset Date: 02/07/17 Current Visit: No Status: Acute Qualifiers: Encounter type: initial encounter Qualified Code(s): W19.XXXA - Unspecified fall, initial encounter (2) COPD (chronic obstructive pulmonary disease) Onset Date: 02/07/17 Current Visit: No Status: Chronic Qualifiers: COPD type: unspecified COPD Qualified Code(s): J44.9 - Chronic obstructive pulmonary disease, unspecified (3) Chronic interstitial lung disease Current Visit: No Status: Chronic (4) Dementia Onset Date: 02/07/17 Current Visit: No Status: Chronic Qualifiers: Dementia type: unspecified type Dementia behavioral disturbance: without behavioral disturbance Qualified Code(s): F03.90 - Unspecified dementia without behavioral disturbance (5) Altered mental status Current Visit: No Status: Acute Qualifiers: Altered mental status type: unspecified Qualified Code(s): R41.82 - Altered mental status, unspecified <Zena Varags - Last Filed: 10/10/21 23:45> Date of Service: 10/08/21 Subjective HPI as mentioned above Review of Systems 10-point ROS is otherwise unremarkable Physical Examination - Vital Signs Reviewed - Physical Exam General: Alert, In no apparent distress, Demented HEENT: Atraumatic, PERRLA, EOMI Neck: Supple, JVD not distended Respiratory: Clear to auscultation bilaterally, Normal air movement Cardiovascular: Regular rate/rhythm, Normal S1 S2 Gastrointestinal: Normal bowel sounds, No tenderness Musculoskeletal: No tenderness Integumentary: No rashes Neurological: Normal speech, Normal tone, Normal affect Lymphatics: No axilla or inguinal lymphadenopathy Assessment & Plan - Problems (Diagnosis) (1) Fall Onset Date: 02/07/17 Current Visit: No Status: Acute Qualifiers: Encounter type: initial encounter Qualified Code(s): W19.XXXA - Unspecified fall, initial encounter (2) COPD (chronic obstructive pulmonary disease) Onset Date: 02/07/17 Current Visit: No Status: Chronic Qualifiers: COPD type: unspecified COPD Qualified Code(s): J44.9 - Chronic obstructive pulmonary disease, unspecified (3) Chronic interstitial lung disease Current Visit: No Status: Chronic (4) Dementia Onset Date: 02/07/17 Current Visit: No Status: Chronic Qualifiers: Dementia type: unspecified type Dementia behavioral disturbance: without behavioral disturbance Qualified Code(s): F03.90 - Unspecified dementia without behavioral disturbance (5) Altered mental status Current Visit: No Status: Acute Qualifiers: Altered mental status type: unspecified Qualified Code(s): R41.82 - Altered mental status, unspecified - Plan Continue plan of care as mentioned above Discharge Plan: Home Plan to discharge in: Greater than 2 days - Advance Directives Does patient have a Living Will: No Does patient have a Durable POA for Healthcare: No - Code Status/Comfort Care Code Status Assessed: Yes Code Status: Full Code Critical Care: No Time Spent Managing PTS Care (In Minutes): 35 <Zena Vargas - Last Filed: 10/10/21 23:45>
[2021-10-09] MEDS: DIVALPROEX DR 500MG TAB PO SCH ×3 (01:17→21:00)
[2021-10-09] MEDS ORDERED: DOCUSATE NA 100 MG CAP PO PRN (01:17)
[2021-10-09] MEDS: PHENYTOIN ER 100 MG CAP PO SCH ×2 (01:17→21:00)
[2021-10-09] MEDS: OLANZapine 2.5 MG TAB PO SCH ×3 (01:17→21:00)
[2021-10-09] MEDS: TRAZODONE 50 MG TABLET PO SCH ×2 (01:17→21:00)
[2021-10-09] MEDS ORDERED: ONDANSETRON 4 MG/2 ML VIAL IV PRN (01:17)
[2021-10-09] MEDS: levETIRAcetam 500 MG TAB PO SCH ×3 (01:17→21:00)
[2021-10-09] MEDS: NA CHLORIDE 0.9% 1,000 ML IV SCH ×2 (01:17→21:17)
[2021-10-09] MEDS ORDERED: ACETAMINOPHEN 500 MG TAB PO PRN (01:17)
[2021-10-09 02:26] LABS: Absolute Lymphocytes (CBC) 1.1 K/uL (0.7-4.9); Hematocrit 40.2 % (36.0-45.0); Lymphocytes % 19.5 % (15.3-44.8); MPV 8.1 fL (7.6-11.3); RBC Red Blood Cell Count 4.23 M/uL (3.86-4.86)
[2021-10-09 02:52] LABS: ALT/SGPT 27 U/L (12-78); AST/SGOT 26 U/L (15-37); Alkaline Phosphatase 82 U/L (45-117); BUN Blood Urea Nitrogen 10 mg/dL (7-18); Bicarbonate 28 mmol/L (21-32); Bilirubin Total 0.2 mg/dL (0.2-1.0); Glucose Level 88 mg/dL (74-106); HDL Cholesterol 46 mg/dL (40-60); LDL Cholesterol, Calculated 124 (<130); Phosphorus 3.6 mg/dL (2.5-4.9); Potassium 3.7 mmol/L (3.5-5.1); Sodium Level 138 mmol/L (136-145)
[2021-10-09 03:00] LABS: C-Reactive Protein 7.74 mg/L (<3.00); Ferritin 111.1 ng/mL (8-388); Troponin High Sensitivity 118.6 pg/mL (<58.9); Valproic Acid (Depakene) Level 38.7 ug/mL (50-100)
[2021-10-09] MEDS ORDERED: levETIRAcetam 500 MG TAB ONE ×3 (03:17→22:23)
[2021-10-09] MEDS ORDERED: DIVALPROEX DR 250 MG TAB PO ONE ×3 (03:17→22:23)
[2021-10-09] MEDS ORDERED: NA CHLORIDE 0.9% 1,000 ML ONE ×2 (03:17→15:15)
[2021-10-09] MEDS ORDERED: PHENYTOIN ER 100 MG CAP PO ONE ×2 (03:17→22:23)
[2021-10-09] MEDS ORDERED: TRAZODONE 50 MG TABLET ONE (04:27)
[2021-10-09] MEDS ORDERED: INFLUENZA VACCINE (for 6+ mo) 0.5 ML DOSE IMVAC ONE (10:00)
--- NOTE | 2021-10-09 21:30 | CON ---
Date of Consultation: 10/09/2021 Reason For Consultation: Borderline elevated troponin. History Of Present Illness: This 81-year-old female with advanced dementia, seizure disorder, neurog enic bladder, hypertension presented with altered mental status. Evaluated her by bedside. She is p leasantly confused. Does not know why she is here. Has no specific symptoms, specifically does not have any chest pain. Past Medical History: As outlined above in the HPI. Medications: Refer reconciliation sheet for detailed list. Allergies: LONG LIST OF ALLERGY WAS REVIEWED. PLEASE REFER TO NURSE'S NOTES ON THAT. Family History: No mature coronary artery disease or cancer. Social History: Does not smoke or drink. Does not use any drugs. Review of Systems: All systems reviewed and they were negative except for mentioned in HPI. Physical Examination: Vital Signs: Reviewed. Head and Neck: Pupils are equal, reactive to light. No JVD. No cervical lymphadenopathy. Neck is supple. Thyroid is not enlarged. Lungs: Clear to auscultation bilaterally. No rhonchi, rales, or crackles. Heart: Regular rate and rhythm with aortic systolic murmur. Abdomen: Soft, nontender. Bowel sounds positive. No organomegaly. No masses or hernia. No rigidi ty or rebound. Extremities: No clubbing, cyanosis. Intact pulses. Skin: No rashes noted. Neurologic: Alert and awake with confusion. No focal deficits appreciated. Investigations: Hemoglobin is 12.9. Troponin is 130 up from 118. Creatinine 0.48. Assessment And Recommendations: Borderline elevated troponin, has no symptoms. Patient is with adva nced dementia. At this point, I recommend to start aspirin and trend troponin 2 more times to see wh at it peaks and obtain an echocardiogram. I will refrain from invasive workup on this patient due to overall condition being significantly demented. However, we will have a discussion further with the primary hospitalist and the family to determine the best course of action for the near future. If e jordan shows normal ejection fraction, then I will recommend only medical management, but if the family choose the invasive route, then we will need to do a Lexiscan nuclear stress test to further evaluate the functionality of her coronary arteries. Thank you for the consult. /LATRICIA Voice ID: [id number] Report ID: [id number]
[2021-10-10] MEDS: NA CHLORIDE 0.9% 1,000 ML IV SCH ×2 (01:44→16:59)
--- NOTE | 2021-10-10 01:44 | P.PN ---
Subjective Date of Service: 10/09/21 Patient confused; dementia. Responds to questions appropriately. But is very confused. Review of Systems 10-point ROS is otherwise unremarkable Physical Examination - Vital Signs Temperature: 98.4 F Blood Pressure: 114/72 Pulse: 90 Respirations: 16 Pulse Ox (%): 92 - Physical Exam General: Alert, In no apparent distress, Demented HEENT: Atraumatic, PERRLA, EOMI Neck: Supple, JVD not distended Respiratory: Clear to auscultation bilaterally, Normal air movement Cardiovascular: Regular rate/rhythm, Normal S1 S2 Gastrointestinal: Normal bowel sounds, No tenderness Musculoskeletal: No tenderness Integumentary: No rashes Neurological: Normal speech, Normal tone, Normal affect Lymphatics: No axilla or inguinal lymphadenopathy - Studies Laboratory Data (last 24 hrs) 10/09/21 02:07: Sodium 138, Potassium 3.7, BUN 10, Creatinine 0.48 L, Glucose 88, Phosphorus 3.6, Magnesium 2.0, Total Bilirubin 0.2, AST 26, ALT 27, Alkaline Phosphatase 82, Triglycerides 76, Cholesterol 185, HDL Cholesterol 46, Cholesterol/HDL Ratio 4.02 10/09/21 02:07: WBC 5.90, Hgb 12.9, Hct 40.2, Plt Count 259 Medications List Reviewed: Yes Assessment & Plan - Problems (Diagnosis) (1) Fall Onset Date: 02/07/17 Current Visit: No Status: Acute Qualifiers: Encounter type: initial encounter Qualified Code(s): W19.XXXA - Unspecified fall, initial encounter (2) COPD (chronic obstructive pulmonary disease) Onset Date: 02/07/17 Current Visit: No Status: Chronic Qualifiers: COPD type: unspecified COPD Qualified Code(s): J44.9 - Chronic obstructive pulmonary disease, unspecified (3) Chronic interstitial lung disease Current Visit: No Status: Chronic (4) Dementia Onset Date: 02/07/17 Current Visit: No Status: Chronic Qualifiers: Dementia type: unspecified type Dementia behavioral disturbance: without behavioral disturbance Qualified Code(s): F03.90 - Unspecified dementia without behavioral disturbance (5) Altered mental status Current Visit: No Status: Acute Qualifiers: Altered mental status type: unspecified Qualified Code(s): R41.82 - Altered mental status, unspecified - Plan Plan: 1. Continue with gentle hydration 2. Continue with IV antibiotics 3. Resume antipsychotics 4. Diet as tolerated 5. Out of bed and ambulate with assistance 6. Physical therapy evaluation 7. GI and DVT prophylaxis Discharge Plan: Home Plan to discharge in: Greater than 2 days - Advance Directives Does patient have a Living Will: No Does patient have a Durable POA for Healthcare: No - Code Status/Comfort Care Code Status Assessed: Yes Code Status: Full Code Critical Care: No Time Spent Managing PTS Care (In Minutes): 35
[2021-10-10 01:48] VITALS: BMI 19.7
[2021-10-10] MEDS: OLANZapine 2.5 MG TAB PO SCH ×2 (08:36→20:53)
[2021-10-10] MEDS: levETIRAcetam 500 MG TAB PO SCH ×2 (08:36→20:53)
[2021-10-10] MEDS: DIVALPROEX DR 500MG TAB PO SCH ×2 (08:36→21:00)
[2021-10-10] MEDS: HYDRALAZINE HCL 20 MG/ML VIAL IV PRN (11:49)
[2021-10-10] MEDS: TRAZODONE 50 MG TABLET PO SCH (20:51)
[2021-10-10] MEDS: PHENYTOIN ER 100 MG CAP PO SCH (20:52)
[2021-10-10] MEDS ORDERED: FAMOTIDINE 20 MG TAB PO PRN (23:41)
[2021-10-10] MEDS ORDERED: ALBUTEROL 2.5 MG/3 ML NEB SOL NEB PRN (23:41)
--- NOTE | 2021-10-10 23:44 | P.PN ---
Date of Service: 10/10/21 Subjective Patient with no significant changes. Interacting appropriately. Physical therapy eval. Anticipate discharge in a.m.. Review of Systems 10-point ROS is otherwise unremarkable Physical Examination - Vital Signs Reviewed - Physical Exam General: Alert, In no apparent distress, Demented Respiratory: Clear to auscultation bilaterally, Normal air movement Cardiovascular: Regular rate/rhythm, Normal S1 S2 Gastrointestinal: Normal bowel sounds, No tenderness Neurological: No focal deficits Assessment & Plan - Problems (Diagnosis) (1) Fall Onset Date: 02/07/17 Current Visit: No Status: Acute Qualifiers: Encounter type: initial encounter Qualified Code(s): W19.XXXA - Unspecified fall, initial encounter (2) COPD (chronic obstructive pulmonary disease) Onset Date: 02/07/17 Current Visit: No Status: Chronic Qualifiers: COPD type: unspecified COPD Qualified Code(s): J44.9 - Chronic obstructive pulmonary disease, unspecified (3) Chronic interstitial lung disease/pulmonary fibrosis Current Visit: No Status: Chronic (4) Dementia, advanced Onset Date: 02/07/17 Current Visit: No Status: Chronic Qualifiers: Dementia type: unspecified type Dementia behavioral disturbance: without behavioral disturbance Qualified Code(s): F03.90 - Unspecified dementia without behavioral disturbance (5) Altered mental status Current Visit: No Status: Acute Qualifiers: Altered mental status type: unspecified Qualified Code(s): R41.82 - Altered mental status, unspecified - Plan Continue with plan of care as mentioned below: 1. Continue with gentle hydration 2. Continue with IV antibiotics 3. Resume antipsychotics 4. Diet as tolerated 5. Out of bed and ambulate with assistance 6. Physical therapy evaluation; anticipate discharge if clinically improving 7. GI and DVT prophylaxis Plan to discharge back to nursing facility.
[2021-10-11 06:30] LABS: Absolute Lymphocytes (CBC) 1.3 K/uL (0.7-4.9); Hematocrit 38.9 % (36.0-45.0); Lymphocytes % 20.1 % (15.3-44.8); RBC Red Blood Cell Count 4.17 M/uL (3.86-4.86)
[2021-10-11] MEDS: METOPROLOL TAR 25 MG TAB PO SCH ×2 (06:37→16:58)
[2021-10-11] MEDS: LEVOTHYROXINE SOD 0.125 MG TAB PO SCH (06:37)
[2021-10-11] MEDS: METHYLPREDNISOLONE 125 MG INJ IV SCH ×3 (06:37→16:57)
[2021-10-11 07:56] LABS: ALT/SGPT 24 U/L (12-78); AST/SGOT 31 U/L (15-37); Albumin 2.5 g/dL (3.4-5.0); Alkaline Phosphatase 82 U/L (45-117); BUN Blood Urea Nitrogen 8 mg/dL (7-18); Bicarbonate 28 mmol/L (21-32); Bilirubin Total 0.2 mg/dL (0.2-1.0); Glucose Level 85 mg/dL (74-106); Potassium 3.9 mmol/L (3.5-5.1); Protein, Total 6.2 g/dL (6.4-8.2); Sodium Level 131 mmol/L (136-145)
[2021-10-11] MEDS: NA CHLORIDE 0.9% 1,000 ML IV SCH (08:34)
[2021-10-11] MEDS: DIVALPROEX DR 500MG TAB PO SCH ×2 (08:35→22:02)
[2021-10-11] MEDS: levETIRAcetam 500 MG TAB PO SCH ×2 (08:36→22:03)
[2021-10-11] MEDS: OLANZapine 2.5 MG TAB PO SCH (08:36)
[2021-10-11] MEDS: LORATADINE 10 MG TAB PO SCH (08:37)
[2021-10-11] MEDS: HOME MED 1 EA UNK (Estradiol [Estrace] 42.5 GM Cream.Appl) VAG SCH (08:38)
[2021-10-11] MEDS: ASPIRIN EC 81 MG TAB PO SCH (08:39)
[2021-10-11] MEDS: HYDRALAZINE HCL 20 MG/ML VIAL IV PRN (08:47)
[2021-10-11] MEDS: SODIUM CHLORIDE 1 GM TAB PO SCH ×2 (08:49→16:36)
[2021-10-11] MEDS ORDERED: KCL 20 MEQ/100 mL IVPB 20 MEQ/100 ML BAG IV SCH (09:00)
[2021-10-11 10:02] LABS: Blood Morphology Comment NOT SEEN (NOT SEEN); Platelet Estimate ADEQ
--- NOTE | 2021-10-11 14:49 | P.PN ---
Subjective Date of Service: 10/11/21 Chief Complaint: AMS Subjective: No new changes (Patient seen sleeping. Neck in a very awkward position. She is severely deconditioned but can speak and try to participate. She requires assistance for feeding.) Physical Examination - Vital Signs Temperature: 97.2 F Blood Pressure: 143/77 Pulse: 74 Respirations: 16 Pulse Ox (%): 96 - Physical Exam General: Cachectic, Other (Frail) Respiratory: Other (Unlabored breathing) Cardiovascular: No edema, Regular rate/rhythm, Normal S1 S2 Neurological: Dementia - Studies Medications List Reviewed: Yes Assessment & Plan - Problems (Diagnosis) (1) Elevated troponin Current Visit: No Status: Acute (2) Fall Onset Date: 02/07/17 Current Visit: No Status: Acute Qualifiers: Encounter type: initial encounter Qualified Code(s): W19.XXXA - Unspecified fall, initial encounter (3) Hypertension Current Visit: No Status: Acute (4) Laceration of left ear Onset Date: 02/07/17 Current Visit: No Status: Acute (5) Metabolic encephalopathy Current Visit: No Status: Acute (6) Pneumonia Current Visit: No Status: Acute Qualifiers: Pneumonia type: due to unspecified organism Lung location: unspecified part of lung (7) Radial fracture Onset Date: 11/28/17 Current Visit: No Status: Acute Qualifiers: Encounter type: initial encounter Radius location: distal Fracture type: open Laterality: right (8) UTI (urinary tract infection) Onset Date: 02/07/17 Current Visit: No Status: Acute (9) Ulna fracture Onset Date: 11/28/17 Current Visit: No Status: Acute Qualifiers: Encounter type: initial encounter Ulna location: distal Fracture type: open Laterality: right (10) Urinary retention Onset Date: 02/07/17 Current Visit: No Status: Acute (11) B12 deficiency Current Visit: No Status: Chronic (12) COPD (chronic obstructive pulmonary disease) Onset Date: 02/07/17 Current Visit: No Status: Chronic Qualifiers: COPD type: unspecified COPD Qualified Code(s): J44.9 - Chronic obstructive pulmonary disease, unspecified (13) Chronic interstitial lung disease Current Visit: No Status: Chronic (14) Dementia Onset Date: 02/07/17 Current Visit: No Status: Chronic Qualifiers: Dementia type: unspecified type Dementia behavioral disturbance: without behavioral disturbance Qualified Code(s): F03.90 - Unspecified dementia without behavioral disturbance (15) Seizure disorder Onset Date: 11/28/17 Current Visit: No Status: Chronic Physician Review Additional Text: Assessment Patient is a 81-year-old female with a past medical history of advanced Alzheimer's dementia. She presented after a fall incident. She has been working with physical therapy during her stay. She is very frail and requesting assistance for feeding. She has been cleared by speech therapy for a pured diet. She was also found to have COVID-19 positive and her troponin was elevated. She is not in respiratory distress. Cardiology evaluated the patient and no intervention is recommended at this time. She is pending transfer back to the residential Plan: Continue PT/OT while in-house Provide assistance for feeding Continue supplemental oxygen via nasal cannula Patient can return to the residential once we have acceptance
[2021-10-11 16:22] LABS: Magnesium 1.6
[2021-10-11] MEDS: PHENYTOIN ER 100 MG CAP PO SCH (22:02)
[2021-10-11] MEDS: TRAZODONE 50 MG TABLET PO SCH (22:03)
[2021-10-11] MEDS: OLANZapine 10 MG TABLET PO SCH (22:03)
[2021-10-12] MEDS: METHYLPREDNISOLONE 125 MG INJ IV SCH ×4 (00:25→17:46)
[2021-10-12] MEDS: METOPROLOL TAR 25 MG TAB PO SCH ×2 (05:25→18:00)
[2021-10-12] MEDS: LEVOTHYROXINE SOD 0.125 MG TAB PO SCH (05:27)
[2021-10-12] MEDS: SODIUM CHLORIDE 1 GM TAB PO SCH ×2 (08:00→16:27)
[2021-10-12] MEDS: LORATADINE 10 MG TAB PO SCH (08:10)
[2021-10-12] MEDS: levETIRAcetam 500 MG TAB PO SCH ×2 (08:10→21:00)
[2021-10-12] MEDS: HOME MED 1 EA UNK (Estradiol [Estrace] 42.5 GM Cream.Appl) VAG SCH (08:10)
[2021-10-12] MEDS: ASPIRIN EC 81 MG TAB PO SCH (08:10)
[2021-10-12] MEDS: DIVALPROEX DR 500MG TAB PO SCH ×2 (08:10→21:00)
[2021-10-12] MEDS: NA CHLORIDE 0.9% 1,000 ML IV SCH (08:11)
[2021-10-12] MEDS: OLANZapine 2.5 MG TAB PO SCH (08:11)
[2021-10-12 08:57] LABS: BUN Blood Urea Nitrogen 12 mg/dL (7-18); Bicarbonate 25 mmol/L (21-32); Glucose Level 133 mg/dL (74-106); Potassium 4.2 mmol/L (3.5-5.1); Sodium Level 130 mmol/L (136-145)
--- NOTE | 2021-10-12 14:56 | P.PN ---
Subjective Date of Service: 10/12/21 Chief Complaint: AMS Subjective: No new changes (Total assist. She is requiring help with feeding and positioning in bed.) Physical Examination - Vital Signs Temperature: 98.3 F Blood Pressure: 149/91 Pulse: 98 Respirations: 20 Pulse Ox (%): 96 - Physical Exam General: In no apparent distress, Other (Frail, cachectic) HEENT: Atraumatic, Normocephalic Respiratory: Normal air movement, Diminished Musculoskeletal: No clubbing, No swelling - Studies Medications List Reviewed: Yes Assessment & Plan - Problems (Diagnosis) (1) Elevated troponin Current Visit: No Status: Acute (2) Fall Onset Date: 02/07/17 Current Visit: No Status: Acute Qualifiers: Encounter type: initial encounter Qualified Code(s): W19.XXXA - Unspecified fall, initial encounter (3) Hypertension Current Visit: No Status: Acute (4) Laceration of left ear Onset Date: 02/07/17 Current Visit: No Status: Acute (5) Metabolic encephalopathy Current Visit: No Status: Acute (6) Pneumonia Current Visit: No Status: Acute Qualifiers: Pneumonia type: due to unspecified organism Lung location: unspecified part of lung (7) Radial fracture Onset Date: 11/28/17 Current Visit: No Status: Acute Qualifiers: Encounter type: initial encounter Radius location: distal Fracture type: open Laterality: right (8) UTI (urinary tract infection) Onset Date: 02/07/17 Current Visit: No Status: Acute (9) Ulna fracture Onset Date: 11/28/17 Current Visit: No Status: Acute Qualifiers: Encounter type: initial encounter Ulna location: distal Fracture type: open Laterality: right (10) Urinary retention Onset Date: 02/07/17 Current Visit: No Status: Acute (11) B12 deficiency Current Visit: No Status: Chronic (12) COPD (chronic obstructive pulmonary disease) Onset Date: 02/07/17 Current Visit: No Status: Chronic Qualifiers: COPD type: unspecified COPD Qualified Code(s): J44.9 - Chronic obstructive pulmonary disease, unspecified (13) Chronic interstitial lung disease Current Visit: No Status: Chronic (14) Dementia Onset Date: 02/07/17 Current Visit: No Status: Chronic Qualifiers: Dementia type: unspecified type Dementia behavioral disturbance: without behavioral disturbance Qualified Code(s): F03.90 - Unspecified dementia without behavioral disturbance (15) Seizure disorder Onset Date: 11/28/17 Current Visit: No Status: Chronic Physician Review Additional Text: Assessment Patient is a 81-year-old female with a past medical history of advanced Alzheimer's dementia. She presented after a fall incident. She has been working with physical therapy during her stay. She is total assist, very frail and requesting assistance for feeding. She has been cleared by speech therapy for a pured diet. She was also found to have COVID-19 positive and her troponin was elevated. She is not in respiratory distress. Cardiology evaluated the patient and no intervention is recommended at this time. She is pending transfer back to the care home Plan: I spoke to her daughter Tracy serrano and updated her on the patient's clinical status She is considering hospice but would like to inquire whether be covered by Medicare, and whether it should be accepted back to her memory care unit is a hospice patient. Case management is assisting us with answers She has been deemed a poor candidate for aggressive cardiac intervention We will continue supportive care for now Anticipating discharge in 1 to 2 days Hospice will be consulted
[2021-10-12] MEDS: TRAZODONE 50 MG TABLET PO SCH (21:00)
[2021-10-12] MEDS: PHENYTOIN ER 100 MG CAP PO SCH (21:00)
[2021-10-12] MEDS: OLANZapine 10 MG TABLET PO SCH (21:00)
[2021-10-13] MEDS: METHYLPREDNISOLONE 125 MG INJ IV SCH ×3 (01:13→12:05)
[2021-10-13] MEDS: NA CHLORIDE 0.9% 1,000 ML IV SCH (05:36)
[2021-10-13] MEDS: METOPROLOL TAR 25 MG TAB PO SCH (06:00)
[2021-10-13] MEDS: LEVOTHYROXINE SOD 0.125 MG TAB PO SCH (06:30)
[2021-10-13] MEDS: SODIUM CHLORIDE 1 GM TAB PO SCH ×2 (08:00→16:05)
[2021-10-13] MEDS: HOME MED 1 EA UNK (Estradiol [Estrace] 42.5 GM Cream.Appl) VAG SCH (08:36)
[2021-10-13] MEDS: DIVALPROEX DR 500MG TAB PO SCH (08:36)
[2021-10-13] MEDS: ASPIRIN EC 81 MG TAB PO SCH (08:36)
[2021-10-13] MEDS: LORATADINE 10 MG TAB PO SCH (08:36)
[2021-10-13] MEDS: levETIRAcetam 500 MG TAB PO SCH (08:36)
[2021-10-13] MEDS: OLANZapine 2.5 MG TAB PO SCH (08:37)
[2021-10-13 09:32] VITALS: O2SAT 98
--- NOTE | 2021-10-13 14:47 | P.DS ---
Admission Date: 10/09/21 Discharge Date: 10/13/21 Disposition: HOSPICE-MEDICAL FACILITY Discharge Condition: FAIR Reason for Admission: AMS - Problems (1) Elevated troponin Current Visit: No Status: Acute (2) Fall Onset Date: 02/07/17 Current Visit: No Status: Acute Qualifiers: Encounter type: initial encounter Qualified Code(s): W19.XXXA - Unspecified fall, initial encounter (3) Hypertension Current Visit: No Status: Acute (4) Laceration of left ear Onset Date: 02/07/17 Current Visit: No Status: Acute (5) Metabolic encephalopathy Current Visit: No Status: Acute (6) Pneumonia Current Visit: No Status: Acute Qualifiers: Pneumonia type: due to unspecified organism Lung location: unspecified part of lung (7) Radial fracture Onset Date: 11/28/17 Current Visit: No Status: Acute Qualifiers: Encounter type: initial encounter Radius location: distal Fracture type: open Laterality: right (8) UTI (urinary tract infection) Onset Date: 02/07/17 Current Visit: No Status: Acute (9) Ulna fracture Onset Date: 11/28/17 Current Visit: No Status: Acute Qualifiers: Encounter type: initial encounter Ulna location: distal Fracture type: open Laterality: right (10) Urinary retention Onset Date: 02/07/17 Current Visit: No Status: Acute (11) B12 deficiency Current Visit: No Status: Chronic (12) COPD (chronic obstructive pulmonary disease) Onset Date: 02/07/17 Current Visit: No Status: Chronic Qualifiers: COPD type: unspecified COPD Qualified Code(s): J44.9 - Chronic obstructive pulmonary disease, unspecified (13) Chronic interstitial lung disease Current Visit: No Status: Chronic (14) Dementia Onset Date: 02/07/17 Current Visit: No Status: Chronic Qualifiers: Dementia type: unspecified type Dementia behavioral disturbance: without behavioral disturbance Qualified Code(s): F03.90 - Unspecified dementia without behavioral disturbance (15) Seizure disorder Onset Date: 11/28/17 Current Visit: No Status: Chronic Hospital Course: Patient is a 81-year-old female with a past medical history of advanced Alzheimer's dementia. She presented after a fall incident. See protocol bed. Her chest imaging showed mild pulmonary fibrosis. She was on room air most of the encounter. She has been working with physical therapy. She is total assist, very frail and requesting assistance for feeding. She has been cleared by speech therapy for a pured diet. Her troponin was elevated. Cardiology evaluated the patient and opted for medical management. Patient remained stable but frail with no acute cardiopulmonary distress. I have talked with her daughter Juliette and she agreed to proceed with comfort care and hospice. She will be transferred back to the memory care unit. Vital Signs/Physical Exam: Temp Pulse Resp BP Pulse Ox 98.5 F 92 H 16 144/73 H 95 10/13/21 12:00 10/13/21 12:00 10/13/21 12:00 10/13/21 12:00 10/13/21 12:00 General: Other (frail) HEENT: Atraumatic, Normocephalic Respiratory: Other (Unlaboured breathing) Musculoskeletal: No clubbing, No swelling, No contractures, Other (generalized) Laboratory Data at Discharge: WBC 6.60 K/uL (4.3-10.9) 10/11/21 05:57 Hgb 13.2 g/dL (12.0-15.0) 10/11/21 05:57 Hct 38.9 % (36.0-45.0) 10/11/21 05:57 Plt Count 253 K/uL (152-406) 10/11/21 05:57 PT 11.9 SECONDS (9.5-12.5) 10/08/21 15:34 INR 1.03 10/08/21 15:34 APTT 28.3 SECONDS (24.3-36.9) 10/08/21 15:34 Sodium 130 mmol/L (136-145) L 10/12/21 08:21 Potassium 4.2 mmol/L (3.5-5.1) 10/12/21 08:21 BUN 12 mg/dL (7-18) 10/12/21 08:21 Creatinine 0.43 mg/dL (0.55-1.3) L 10/12/21 08:21 Glucose 133 mg/dL (74-106) H 10/12/21 08:21 Phosphorus 3.6 mg/dL (2.5-4.9) 10/09/21 02:07 Magnesium 1.6 10/11/21 05:57 Total Bilirubin 0.2 mg/dL (0.2-1.0) 10/11/21 05:57 AST 31 U/L (15-37) 10/11/21 05:57 ALT 24 U/L (12-78) 10/11/21 05:57 Alkaline Phosphatase 82 U/L (45-117) 10/11/21 05:57 Triglycerides 76 mg/dL (<150) 10/09/21 02:07 Cholesterol 185 mg/dL (<200) 10/09/21 02:07 HDL Cholesterol 46 mg/dL (40-60) 10/09/21 02:07 Cholesterol/HDL Ratio 4.02 10/09/21 02:07 Amylase 54 U/L (25-115) 10/08/21 15:34 Lipase 75 U/L (73-393) 10/08/21 15:34 Home Medications: Estradiol [Estrace] 1 appl VG DAILY 03/09/21 Famotidine [Pepcid*] 20 mg PO DAILYPRN PRN 03/09/21 Loratadine [Claritin*] 10 mg PO DAILY 03/09/21 Magnesium Hydroxide [Milk of Magnesia] 5 ml PO Q8HP PRN 03/09/21 Phenytoin Sodium Extended [Phenytek] 300 mg PO BEDTIME 03/09/21 levETIRAcetam [Levetiracetam] 500 mg PO BID 03/09/21 Albuterol Neb [Proventil 0.083% Neb Soln] 2.5 mg NEB [id number] PRN 07/02/21 Divalproex Sodium 1 tab PO BID 07/02/21 Losartan Potassium 1 tab PO DAILY 07/02/21 Metoprolol Tartrate [Lopressor*] 0.5 tab PO BID 6AM 6PM 07/02/21 OLANZapine [Olanzapine] 1 tab PO DAILY 07/02/21 Sodium Chloride Tab [Sodium Chloride*] 2 tab PO BIDWM 07/02/21 Trazodone HCl 2 tab PO BEDTIME 07/02/21 Aspirin [Aspirin EC] 81 mg PO DAILY #30 tablet. 07/05/21 OLANZapine [Olanzapine] 10 mg PO BEDTIME 10/10/21 Docusate [Colace Cap*] 100 mg PO DAILY PRN cap 10/13/21 Levothyroxine [Synthroid*] 0.125 mg PO DAILYAC tab 10/13/21 Followup: Vanessa Yo MD [Primary Care Provider] -
[2021-10-13 17:35] VITALS: BP 152/89; TEMP 98.3
== END 2021-10-13 17:34 | disposition hospice, home (50) | DRG 56 ==
LOC: ER 13:24 → ERHOLD 18:51 → OBSVTOIN 10-09 14:44 → 4TH 10-09 23:52
PROVIDERS: ADMIT Hospitalist; ATTEND Internal Medicine
DX: G30.9 Alzheimer's disease, unspecified (principal); G93.41 Metabolic encephalopathy; U07.1 COVID-19; S52.201B Unspecified fracture of shaft of right ulna, initial encounter for open fracture type I or II; S52.91XB Unspecified fracture of right forearm, initial encounter for open fracture type I or II; J18.9 Pneumonia, unspecified organism; I50.32 Chronic diastolic (congestive) heart failure; J44.0 Chronic obstructive pulmonary disease with (acute) lower respiratory infection; N39.0 Urinary tract infection, site not specified; R64 Cachexia; Z68.1 Body mass index [BMI] 19.9 or less, adult; F02.80 Dementia in other diseases classified elsewhere, unspecified severity, without behavioral disturbance, psychotic disturbance, mood disturbance, and anxiety; I11.0 Hypertensive heart disease with heart failure; J84.10 Pulmonary fibrosis, unspecified; E53.8 Deficiency of other specified B group vitamins; N31.9 Neuromuscular dysfunction of bladder, unspecified; G40.909 Epilepsy, unspecified, not intractable, without status epilepticus; S01.312A Laceration without foreign body of left ear, initial encounter; R33.9 Retention of urine, unspecified; R77.8 Other specified abnormalities of plasma proteins; W18.30XA Fall on same level, unspecified, initial encounter; Z90.710 Acquired absence of both cervix and uterus; Z88.1 Allergy status to other antibiotic agents; Z79.82 Long term (current) use of aspirin; Z88.2 Allergy status to sulfonamides; Z88.8 Allergy status to other drugs, medicaments and biological substances; Z79.899 Other long term (current) drug therapy; Z79.890 Hormone replacement therapy; Z66 Do not resuscitate
CPT/HCPCS: 36415; 70450; 71045; 71260; 74177; 80048; 80053; 80061; 80076; 80164; 80177; 80185; 81003; 81015; 82140; 82150; 82550; 82553; 82728; 82805; 82947; 83605; 83690; 83735; 84100; 84145; 84439; 84443; 84484; 85025; 85610; 85730; 86140; 87040; 92610; 93005; 94760; 96365; 96366; 97161; 97530; 99285; G0378; J0360; J2930; J3480; J7030; Q9967; U0003